=== PATIENT | male | born 1970 | race Caucasian/White ===

== ENCOUNTER 2017-08-10 16:30 | Outpatient (RCR) | payer MEDICARE, SELFPAY ==
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
--- NOTE | 2017-08-10 18:25 | HP.PTDCSUM ---
HP - PT D/C Summary It has been my pleasure to treat VANESSA FUNES under orders from Carroll Mckeon, for the diagnosis of OBESITY IN ADULT for a total of 9 visit(s). Discharge Date: Please see the following information for a summary of their discharge status. - Subjective Subjective: PATIENT REPORTS HE FEELS A LOT MORE STABILITY AND BETTER FUNCTION OF THE LEFT FOOT. HE FEELS MUCH MORE AWARE OF BETTER POSTURE AND FEELS A BIG DIFFERENCE IN HIS POSTURE CONTROL (GETTING TONE). STATES LEGS ARE A LOT STRONGER AND CAN STAND LONGER. ABLE TO TOLERATE COOKING AND DOING DISHES BETTER. REPORTS HE CAN LIFT GROCERIES BETTER AND GO UP AND DOWN STEPS IS IMPROVING. REPORTS WHEN HE WAKES UP IN THE MORNINGS IT IS MUCH EASIER TO GET UP. PATIENT REPORTS HE DOES NOT FEEL HE NEEDS ANYMORE FORMAL PT RIGHT NOW AND HE IS GOING TO TRY TO FIGURE OUT WHERE HE CAN CONTINUE INDEP POOL EX'S. - Pain Back Pain Intensity (Out of 10): 4 L foot Pain Intensity (Out of 10): 5 Hip Pain Pain Intensity (Out of 10): 0 R shldr pain Pain Intensity (Out of 10): 0 - Overall Improvement % Improvement: 50 - Objective Objective/Function: ALL GOALS MET. UPON EXAM: LUMBAR MVMT LOSS: FLEX - MIN, EXT - MIN, ALIX SG - MIN. PATIENT REPORTS STIFFNESS WITH ROM TESTING BUT NOT INCREASED PAIN. ALIX LE STRENGTH 5/5 WITH MMT. - Goals Goal 1:: DECREASE C/O BACK, HIP, NECK, SHOULDER, KNEE AND LEFT FOOT PAIN Goal 2:: IMPROVE LIFTING, WALKING, SITTING, STANDING, SOCIAL LIFE, TRAVEL AND EMPLOYMENT/HOMEMAKING FUNCTION Goal 3:: INSTRUCT IN PROPHYLAXIS/INDEP HEP - Plan Plan: D/C TO INDEP POOL EX'S. PATIENT AGREEABLE. - D/C Information If there are questions or concerns regarding this patient's physical therapy, please feel free to call me at [phone]. Thank you for the referral of this patient. Sincerely, Sarai Broussard
== END 2017-08-10 19:00 | disposition home or self-care (01) ==
LOC: PT 16:30
PROVIDERS: Family Provider Family Medicine; PCP Family Medicine; Visit Provider Family Medicine
DX: E11.65 Type 2 diabetes mellitus with hyperglycemia (principal); I10 Essential (primary) hypertension; E66.9 Obesity, unspecified
CPT/HCPCS: 97113; 97162; 97530

== ENCOUNTER 2017-09-28 13:44 | Emergency (ER) | payer MEDICARE, SELFPAY ==
[2017-09-28 13:44] VITALS: BP 139/95; PULSE 103; RESP 16; TEMP 36.6; O2SAT 96; BMI 59.5
--- NOTE | 2017-09-28 15:13 | VDLE_ITS ---
Reason For Study: LEG SWELLING Procedure LEFT Exam performed portable in ED. GSV is normal. Technically difficult due to body habitus. CFV is compressible, spontaneous, phasic, A preliminary report was called and/or faxed competent, and demonstrates normal to . augmentation. FV is compressible, spontaneous, phasic, competent and demonstrates normal augmentation. POP V is compressible, spontaneous, phasic, competent and demonstrates normal augmentation. T/P Trunk is compressible. PTV is compressible. LT PerV is compressible. Interpretation Summary Deep veins of the left lower extremity are patent and compressible segmentally. There is no evidence of left lower extremity deep vein thrombosis. Valvular competence appears intact within the proximal deep venous system on the left . The left greater saphenous vein appears patent and compressible segmentally. Ordering Physician: Chito Price Referring Physician: Carroll Mckeon Performed By: Yessi Lopes RVT
[2017-09-28] MEDS: morphine 10 MG/ML Syringe 8 MG IM (15:34)
--- NOTE | 2017-09-28 16:01 | ED.VISSUMM ---
- ER Visit Summary Date of Service: 09/28/17 Chief Complaint: Left calf pain and swelling History of Present Illness: The patient is a [address] Mckeon and Dr. Chavez. He reports that he has had pain in his left foot for quite some time. He saw Dr. Chavez in the office yesterday and had a steroid injection and his pain resolved. However, he reports that today he noticed a throbbing pain in his left calf. It is 8 out of 10 with walking and 6 out of 10 with remaining still. He denies any paresthesias or weakness. No back pain. No recent trauma. No fall, MVA, or change in activity. Patient does have a family history of DVT. No personal history of DVT. No recent travel. No chest pain or shortness of breath. Physical Examination: Vitals: Stable. Afebrile. General: Well-nourished and well-developed. Head: Normocephalic atraumatic. Neck: Supple, no lymphadenopathy. No JVD. Nontender. Cardiovascular: Regular rate and rhythm. No murmurs. Respiratory: No respiratory distress. Clear to auscultation bilaterally. Abdominal: Soft, nontender, nondistended, normal bowel sounds. No guarding, rebound, or peritoneal signs. Back: Nontender. Extremities: Trace pedal edema of his lower extremities bilaterally. Moderate tenderness palpation over his left calf. 1+ dorsalis pedis pulse bilaterally. Skin: Normal color, no rash. Neurologic: Alert and oriented ?3. Cranial nerves II through XII are intact. Normal strength and sensation. Psych: Normal affect. Test Results: Left lower extremity Doppler is negative. Emergency Department Course and Treatment: Patient was treated with a dose of morphine IM and is resting comfortably. Treatment Plan: Patient did not want anything for pain at home. He will be discharged instructions to follow-up his primary care physician in 3-5 days not improving. Return to the emergency department for any worsening symptoms. Disposition: To home in improved and stable condition. Impression: 1. Left calf pain, acute. This note was generated with [employer] dictation software. It may contain incorrect words, spelling, and punctuation that were not noted in review of the chart prior to signing ED Disposition - Plan for ED Patient: Chief Complaint: Lower Extremity Injury Instructions: ED Strain Muscle Ext Referrals: Carroll Mckeon MD [Primary Care Provider] - 3-5 Days if not improving
[2017-09-28 16:17] VITALS: BP 146/62; PULSE 78; RESP 20; O2SAT 96
== END 2017-09-28 16:18 | disposition home or self-care (01) ==
LOC: ED 15:56
PROVIDERS: Emergency Provider Emergency Medicine; Family Provider Family Medicine; PCP Family Medicine
DX: M79.662 Pain in left lower leg (principal); R60.0 Localized edema; E11.9 Type 2 diabetes mellitus without complications; I10 Essential (primary) hypertension; F31.9 Bipolar disorder, unspecified; Z79.84 Long term (current) use of oral hypoglycemic drugs; Z79.899 Other long term (current) drug therapy
CPT/HCPCS: 93971; 96372; 99282

== ENCOUNTER 2017-11-20 12:02 | Emergency (ER) | payer MEDICARE, SELFPAY ==
[2017-11-20 12:03] VITALS: BP 127/88; PULSE 103; RESP 19; TEMP 36.7; O2SAT 97; BMI 56.2
--- NOTE | 2017-11-20 12:24 | ED.VISSUMM ---
- ER Visit Summary Date of Service: 11/20/17 Chief Complaint: [] Emotionally upset crying exacerbation of bipolar disorder History of Present Illness: The patient is a 47 M [] in by reports of for a few days the patient's been emotionally upset crying not sleeping quite agitated, no suicidal homicidal ideation the other day he apparently either took too much medicine or too little she is not sure, today he seems very emotionally upset he was not able to sleep all day and she brought him in for evaluation he is taking multiple meds for his bipolar disorder including Depakote, he is fine with the medication regimen diabetes regimen no alcohol use no suicidal ideation reports when he gets to this point sometimes requires admission, his blood sugar this morning was about 200 which is slightly higher than normal Physical Examination: [] Is in no distress resting comforting the bed crying however feels he has low self-esteem denies being suicidal or homicidal he is a large gentleman head neck unremarkable lungs are clear heart tones normal abdomen soft nontender production was unremarkable awake moving all 4 no psychomotor agitation or hallucinations Test Results: [] Emergency Department Course and Treatment: [] Is time screening labs are obtained he has been medicated with metformin which she did not take 2 g Ativan, diabetic diet we have asked the mental health services to see him and determine best disposition options, the is not opposed to his being discharged home but wants him to get some sleep and agrees to wait and discuss the issues with the mental health counselors, Screening labs are pending will be on the chart Treatment Plan: [] he has been seen by mental health services they are making arrangements for him to be admitted to the hospital based on the patient's concerns, later the patient and asked that I speak with them and informed that he was feeling much better he did not wish to be into the hospital he would prefer to go home and be managed as an outpatient again he never had suicidal homicidal ideation he is no longer tearful and feels much better, I will notify mental health services of the above in addition he will be given Ativan 0.5 mg #2 tablets to use 1 tablet nightly and return for change in symptoms Disposition: [] The mental health evaluation Impression: [] Exacerbation of bipolar disorder with emotional outbursts and insomnia This note was generated with [employer] software. It may contain incorrect words, spelling, and punctuation that were not noted in review of the chart prior to signing ED Disposition - Plan for ED Patient: Chief Complaint: Mental Health Referrals: Carroll Mckeon MD [Primary Care Provider] -
--- NOTE | 2017-11-20 12:29 | PCA ---
[facility] TO LET [facility] KNOW HE NEEDED TO BE SEEN
[2017-11-20] MEDS: LORazepam 1 MG Tablet PO (12:45)
[2017-11-20] MEDS: metFORMIN HCl 1,000 MG Tablet 1000 MG PO (12:46)
[2017-11-20 13:49] LABS: Absolute Lymphocyte Count 1.79 X10^3/ul (0.83-4.51); Absolute Neutrophil Count 7.1 X10^3/uL (2.0-7.7); Basophil# 0.02 X10^3/uL; Basophil% 0.2 % (0-1); Eosinophil# 0.02 X10^3/uL; Eosinophils% 0.2 % (0-5); Hematocrit 44.7 % (40-54); Hemoglobin 14.9 g/dl (13.0-16.5); Lymphocyte # 1.79 X10^3/ul (4.0); Lymphocyte % 18.5 % (19-41); Mean Corp Hgb Conc 33.3 g/gl (32-36); Mean Corpuscular Hgb 28.8 pg (27.0-32.0); Mean Corpuscular Volume 86.3 fL (80-94); Mean Platelet Vol. 11.4 fl (6.2-12.0); Monocyte# 0.77 X10^3/uL; Monocyte% 7.9 % (0-10); Neutrophil # 7.09 X10^3/uL (2.7-7.7); Neutrophil % 73.1 % (47-70); POSITIVE COUNT NO; POSITIVE DIFFERENTIAL NO; POSITIVE MORPHOLOGY NO; Platelet Count 183 K/mm3 (150-450); RBC Distribution Width CV 14.6 % (11.6-14.6); RBC Distribution Width SD 45.9 fl (35.1-43.9); Red Blood Count 5.18 M/mm3 (4.6-6.2); White Blood Count 9.7 K/mm3 (4.4-11.0)
[2017-11-20 13:58] LABS: Anion Gap 8 (5-15); BUN 11 mg/dL (7-18); BUN/Creat Ratio 13.9 RATIO (10-20); Calcium,Total 8.8 mg/dL (8.5-10.1); Chloride 103 mmol/L (98-107); Creatinine, Serum 0.79 mg/dL (0.70-1.30); EST Glomerular Filtration Rate 113 mL/min (>60); Est Glom Filt Rate - Afr Amer 136 mL/min (>60); Estimated Creatinine Clearance 121.92 ml/min; Glucose 172 mg/dL (74-106); Sodium Level 135 mmol/L (136-145)
[2017-11-20 14:07] LABS: Alcohol, Blood (Medical)-Serum < 3.0 mg/dL
[2017-11-20 14:15] LABS: Valproic Acid (Depakene) Level 43 ug/mL (50-100)
[2017-11-20 14:24] LABS: Amphetamine Urine VISTA NEGATIVE (<1000 ng/mL); Barbiturate Urine VISTA NEGATIVE (< 200 ng/mL); Benzodiazepine Urine VISTA NEGATIVE (< 200 ng/mL); Cocaine Urine VISTA NEGATIVE (< 300 ng/mL); Ecstacy Urine VISTA NEGATIVE (< 500 ng/mL); Methadone Urine VISTA NEGATIVE (< 300 ng/mL); PCP Urine VISTA NEGATIVE (< 25 ng/mL); THC Urine VISTA NEGATIVE (< 50 ng/mL); Vista UDS pH Range 8
--- NOTE | 2017-11-20 14:55 | ED.DEP ---
ED Disposition - Plan for ED Patient: Chief Complaint: Mental Health Instructions: ED Depression Prescriptions: Lorazepam [Ativan] 0.5 mg PO QHS PRN PRN #2 tab PRN Reason: Insomnia Referrals: Carroll Mckeon MD [Primary Care Provider] -
[2017-11-20] MEDS: Divalproex Sodium 250 MG Tablet 500 MG PO (15:27)
[2017-11-20 15:28] VITALS: BP 162/88; PULSE 110; RESP 20
== END 2017-11-20 15:29 | disposition home or self-care (01) ==
PROVIDERS: Emergency Provider Emergency Medicine; Family Provider Family Medicine; PCP Family Medicine
DX: F31.9 Bipolar disorder, unspecified (principal); G47.00 Insomnia, unspecified; Z79.84 Long term (current) use of oral hypoglycemic drugs; Z79.899 Other long term (current) drug therapy
CPT/HCPCS: 36415; 80048; 80164; 80307; 80320; 85025; 99282; G0480

== ENCOUNTER 2017-11-21 21:55 | Emergency (ER) | payer MEDICARE, SELFPAY ==
--- NOTE | 2017-11-21 21:55 | DT_ITS ---
This patient was seen during an EMR downtime November 21, 2017 - November 28, 2017. This patient may have a combination of paper and electronic documentation or all paper documentation. All documentation is viewable within the e-chart portion of [facility] for each patient visit.
[2017-11-24 12:18] LABS: Valproic Acid (Depakene) Level 71 ug/mL (50-100)
[2017-11-24 15:08] LABS: Bacteria 0 SEEN /hpf (None Seen)
[2017-11-24 15:22] LABS: Color, Urine Yellow (Yellow); Glucose, Dipstick NEGATIVE (Normal); Urine Bilirubin Dipstick Negative (Negative); Urine Clarity Sl Cldy (Clear)
[2017-11-24 15:23] LABS: Ketone-Dipstick 150 mg/dl (Negative); Nitrite-Dipstick Negative (Negative); Occult Blood-Urine 50 /ul (Negative); Protein-Dipstick 15 mg/dl (Negative); Urine Urobilinogen Normal (Normal)
[2017-11-24 15:24] LABS: Leukocyte Esterase-Dipstick Negative /ul (Negative); Mucous, Urine 3+ /hpf (<or=2+); Red Blood Cells-Urine 0-5 SEEN /hpf (0-5); Squamous Epithelial Cells - UA 5-10 SEEN /hpf (0-5); White Blood Cells 5-10 SEEN /hpf (0-5)
[2017-11-25 08:57] LABS: Hematocrit 45.3 % (40-54); Mean Corp Hgb Conc 33.1 g/gl (32-36); Mean Corpuscular Hgb 28.9 pg (27.0-32.0); Mean Corpuscular Volume 87.3 fL (80-94); Mean Platelet Vol. 12.6 fl (6.2-12.0); Platelet Count 227 K/mm3 (150-450); RBC Distribution Width CV 14.9 % (11.6-14.6); RBC Distribution Width SD 47.8 fl (35.1-43.9); Red Blood Count 5.19 M/mm3 (4.6-6.2); Scan Indicated on CBC? Y/N NO; White Blood Count 13.6 K/mm3 (4.4-11.0)
[2017-11-26 08:55] LABS: Amphetamine Urine VISTA NEGATIVE (<1000 ng/mL); Barbiturate Urine VISTA NEGATIVE (< 200 ng/mL); Benzodiazepine Urine VISTA NEGATIVE (< 200 ng/mL); Cocaine Urine VISTA NEGATIVE (< 300 ng/mL); Ecstacy Urine VISTA NEGATIVE (< 500 ng/mL); Methadone Urine VISTA NEGATIVE (< 300 ng/mL); PCP Urine VISTA NEGATIVE (< 25 ng/mL); THC Urine VISTA NEGATIVE (< 50 ng/mL)
== END 2017-11-22 17:01 ==
LOC: ED 11-23 15:26
PROVIDERS: Emergency Provider Emergency Medicine; Family Provider Family Medicine; PCP Family Medicine
DX: F31.9 Bipolar disorder, unspecified (principal); E11.9 Type 2 diabetes mellitus without complications; I10 Essential (primary) hypertension; E78.00 Pure hypercholesterolemia, unspecified; F17.210 Nicotine dependence, cigarettes, uncomplicated; Z79.899 Other long term (current) drug therapy
CPT/HCPCS: 36415; 80164; 80307; 80320; 81001; 85027; 96372; 99285; A4216; G0480

== ENCOUNTER 2017-12-26 08:30 | Outpatient (RCR) | payer MEDICARE, MEDICAID, SELFPAY ==
--- NOTE | 2017-12-26 09:10 | BH.SGPN.GN ---
Behaviors/Verbalizations/Mental Status: [] Client maintained good eye contact, tearful as he discussed circumstances surrounding admission. appropriate motor activity throughout session. He was dressed casual however hygiene appeared lacking as Client gave off a distinct odor. His speech remained WNL. Mood was anxious and depressed, affect congruent with mood. Thoughts were linear, logical, and with no presence of delusion or hallucination. Client Response/Progress/Benefit: [] Client first day in PHP program and was adjusting to dynamics of the group setting. He did well to respond to session and was engaged throughout. Client shared that he has had a long history of difficulties in managing his mental health symptoms, specifically that of kera. Client shared recently having to be hospitalized due to an uncontrolled manic state. Client shared wanting to take steps to prevent something similar from recurring as Client indicated experiencing guilt for the toll it took on his family and his having to take on additional responsibilities. Client receptive of group feedback and appeared to benefit from the encouragement and comfort of the shared group environment. Client recommended continued PHP services to improve client understanding of and ability to manage mental health symptoms.
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
--- NOTE | 2017-12-26 10:27 | BH.SGPN.GN ---
Behaviors/Verbalizations/Mental Status: []Client alert and oriented, dress appropriate, hygiene poor as evidenced by odor. Eye contact good. Motor activity appropriate. Speech within normal limits. Affect congruent, mood anxious, depressed. Thoughts linear, logical, no signs of hallucinations or delusions. Client Response/Progress/Benefit: []Client responded well to session, participating when prompted. Client connected with the topic sharing, I need to get better at changing my thought process. Client helped group identify the physical, mental, behavioral, and emotional impacts of stress. Client reported when he has unmanaged stress client recognizes it first mentally sharing I get racing thoughts. Client identified current stressors in his life such as money, vehicle, feeling self-conscious, physical and mental health, daughter, and relationship with his . Client shared his stress jar is over care home full, but still manageable. Client stated when he enters distress he avoids things, isolates, eats more, and has increased negative thinking. Client appeared to benefit from gaining awareness of his current stressors and how they impact mental health. Client to continue PHP to prevent decompensation and increase use of healthy coping skills to manage mental health symptoms.
--- NOTE | 2017-12-26 11:29 | BH.SGPN.GN ---
Behaviors/Verbalizations/Mental Status: []Client alert and oriented, dress appropriate, hygiene poor as evidenced by odor. Eye contact good. Motor activity appropriate. Speech within normal limits. Affect congruent, mood anxious. Thoughts linear, logical, no signs of hallucinations or delusions Client Response/Progress/Benefit: []Client responded well to session, active participant. Client engaged in the group activity, contributing positively and using in the moment coping skills. Client helped the group create a list of helpful stress management strategies and identified strategies that would help client deal with stress such as starting with small stressors first deep breathing, stopping and thinking before reacting, and focusing on stressors in his control. Client reported of his current stressors, his ability to cope with mental health is in clients control. Client was receptive to learning the four As of coping with stress and appeared to benefit from learning different ways to manage stress. Client continues to struggle with recognizing early warning signs and applying healthy coping skills, but seems to be progressing with socialization. Client to continue PHP to prevent decompensation and increase mood stability.
--- NOTE | 2017-12-26 14:40 | BH.MDN ---
Multi-Disciplinary Note - Note 60-min Individual Time Started:: 12:30 Date: 12/26/17 Purpose of session/treatment goals addressed:: Purpose of today's session was to gather additional information from the client about functioning and symptoms. Other topics including developing treatment goals and his progress in the program Eye Contact:: Fair Motor Activity:: Appropriate Appearance:: Disheveled Speech:: Appropriate Mood:: Anxious Affect:: Congruent Thoughts:: Linear, Logical, No evidence of hallucinations/delusions noted Staff Interventions:: Therapist used open ended questions to gather client's symptoms, current stressors, as well as hx of mental health treatment. Worked with client to explore treatment goals to address in PHP. Client Response:: Pt reports that his first day in the PHP program went well. Discussed the topics and skills of today's group. Shared that he spent the holiday and the weekend with his family and some friends. Feels that his meds are starting to work. Reports less restlessness and racing thoughts. Continues to voice regrets and some embarassment over his actions during manic episode. Fearful that kera will occur again. Frustrated with how these episodes keep occuring and how it effects his family. Other frustrations include current housing as the apartment is very small. Discussed hx of previous hospitalizations, previous treatment, and goals for PHP. Risks/Concerns:: No risks or concerns noted. Denies any sucidal ideations, plan, or intent. Alert and oriented. Thoughts are linear and intact. No kera noted. Progress Toward Goals/Plan:: Limited progress as this was pt's first day in the program. Currently working on developing a tx plan for PHP. Benefited from group support and education today. Will remains in PHP to prevent decompensation, stabilize mood, maintain safety, and medication management. Time Stopped:: 13:30
--- NOTE | 2017-12-26 14:47 | BH.MDN_ITS ---
Multi-Disciplinary Note - Note 60-min Individual Time Started:: 12:30 Date: 12/26/17 Purpose of session/treatment goals addressed:: Purpose of today's session was to gather additional information from the client about functioning and symptoms. Other topics including developing treatment goals and his progress in the program Eye Contact:: Fair Motor Activity:: Appropriate Appearance:: Disheveled Speech:: Appropriate Mood:: Anxious Affect:: Congruent Thoughts:: Linear, Logical, No evidence of hallucinations/delusions noted Staff Interventions:: Therapist used open ended questions to gather client's symptoms, current stressors, as well as hx of mental health treatment. Worked with client to explore treatment goals to address in PHP. Client Response:: Pt reports that his first day in the PHP program went well. Discussed the topics and skills of today's group. Shared that he spent the holiday and the weekend with his family and some friends. Feels that his meds are starting to work. Reports less restlessness and racing thoughts. Continues to voice regrets and some embarassment over his actions during manic episode. Fearful that kera will occur again. Frustrated with how these episodes keep occuring and how it effects his family. Other frustrations include current housing as the apartment is very small. Discussed hx of previous hospitalizations, previous treatment, and goals for PHP. Risks/Concerns:: No risks or concerns noted. Denies any sucidal ideations, plan , or intent. Alert and oriented. Thoughts are linear and intact. No kera noted. Progress Toward Goals/Plan:: Limited progress as this was pt's first day in the program. Currently working on developing a tx plan for PHP. Benefited from group support and education today. Will remains in PHP to prevent decompensation , stabilize mood, maintain safety, and medication management. Time Stopped:: 13:30
--- NOTE | 2017-12-27 09:07 | BH.SGPN.GN ---
Number of participants: 6 Behaviors/Verbalizations/Mental Status: []Client alert and oriented, disheveled appearance. Speech within normal limits. Good eye contact. Motor activity appropriate. Mood depressed, affect congruent, laughing occasionally. Thoughts linear and logical, no signs of hallucinations or delusions. Therapist reviewed clients symptom tracker to assess for intensity of mental health symptoms and identify risk for suicide. No signs of suicidal ideation, plan, or intent to date. Client Response/Progress/Benefit: []Client responded well to session, active participant. Client shared he did not want to attend group today, but he was unsure why. However, client stated I knew if I didnt come I would just mope around all day and feel worse. Client receptive to feedback from group on the benefits of making it to IOP. Client stated group helps get him out of the house and keeps his mind off the negatives. Client reports feeling a little depressed today as he is having a wave of grief for his mother who . Client shared he plans to go to his outpatient psychiatrist today to get his medications regulation, which client reports will be helpful. Client appeared to benefit from receiving positive support from peers on the benefits of getting out of the house and coming to group. Limited progress as it is clients second day in PHP. Client to continue PHP to prevent decompensation.
--- NOTE | 2017-12-27 10:20 | BH.SGPN.GN ---
Behaviors/Verbalizations/Mental Status: [] Pt eye contact good, casual dress, speech and tone appropriate, thoughts linear and intact, no evidence of delusions or hallucinations, mood depressed. Client Response/Progress/Benefit: [] Pt verbalized not really wanting to be in group, however did show engagement AEB contributing his thoughts and feelings. Pt reported he has a positive support group, but sometimes finds he relies too much on his support group. Pt shared there are several times in which he has wanted to vent to his or a friend, but they are not available. Pt recognizes he needs to build upon his internal coping skills for when he can't get reach a friend. Pt reported he would like to gain more insight into his warning signs and triggers because his knows when he is starting to struggle, but pt reports he lacks the insight to recognize the signs himself. Pt seemed to benefit from increasing awareness of benefits of social support.
--- NOTE | 2017-12-27 11:20 | BH.SGPN.GN ---
Behaviors/Verbalizations/Mental Status: []Pt eye contact fair, motor activity appropriate, alert and oriented, thoughts logical and linear, no evidence of delusions or hallucinations, mood depressed, anxious. Client Response/Progress/Benefit: []Pt listened attentively to others and contributed his thoughts and ideas to discussion. Pt connected the importance of communicating how he feels to his supports or others cannot help him. Pt reported he has an idea of what type of support is most beneficial for him, but sometimes struggles with communicating in the moment what would best help him. Recognizes he has to improve his balance between external and internal supports so he doesn't rely on just one type of support. Pt seemed to benefit from group identifying strategies of overcoming barriers to using support system.
--- NOTE | 2017-12-27 14:00 | BH.MTP ---
Master Treatment Plan - Patient Information Program Physician:: Dr. Sophia Mendes Primary Therapist:: Pedrito [facility], [facility] - Psychiatric Diagnoses Psychiatric Diagnoses:: Bipolar 1, most recent episode manic with psychotic features Diagnosis Code(s):: F31.2 - Estimated LOS Estimated LOS (in weeks):: 2 Problem/Goal #1 - Problem/Goal #1 Stated Goal:: Client will improve mood management and reduce suicidal ideations, feelings of hopelessness, and anger outbursts due to Bipolar Disorder through [facility]. Description of Barriers: Limited coping skills and insights on how to manage mood, negative self-talk, and emotional distress. Often use inappropriate skills such as isolation. Functional Impact: Mood instability as the result of poor insight, limited coping skills, and non-compliance with medications has led to conflcits with support and several psychiatric inpt admission. - Objectives Objective #1 Stated Objective: Work with client to develop a crisis plan which includes emergency telephone numbers, 3-4 coping strategies for emotional distress, lists of supports, positive aspects of life, and motivations. Work with client to identify 3-4 sources or triggers to emotional distress to increase insight. Identify 3 effective thought-stopping skills to utilize. Interventions: Therapist will provide list of crisis phone numbers. Therapist will work with client to identify effective coping strategies and steps to take in time of mental health crisis Discharge Criteria: Client will have achieved this goal once he completes his safety plan and is able to utilize coping and thought replacement strategies Target Date: 01/09/18 Review Date: 01/09/18 Problem/Goal #2 - Problem/Goal #2 Stated Goal:: Client will decrease ruminating thoughts which cause anxiety Description of Barriers: Tends to isolate when overwhelmed with emotions. When isolating reports fuck it attitude in which he does not attempt to use any coping skills. Functional Impact: Anxiety often leads to isolation and irritability, which often lead to conflicts with family, decompensation, and non-compliance with medications. - Objectives Objective #1 Stated Objective: Client will identify 2-3 anxiety triggers and 2 coping skills to use when feeling anxious Interventions: Through group and individual counseling pt will be educated on coping skills such as mindfullness, calming/relaxation skills, and thought-stopping skills. Discharge Criteria: Client will be able to identify 2-3 anxiety triggers and 2 coping skills to use when feeling anxious Target Date: 01/09/18 Review Date: 01/09/18 Problem/Goal #3 - Problem/Goal #3 Stated Goal:: Client will cooperate with physician recommendations for medication stabilization to help manage psychotic episodes Description of Barriers: Poor memory which often leads to forgetting to take medications. Little insight into coping skills and warning signs to kera. Functional Impact: Pt has had several discrete episodes of kera which have led to inpatient hospitalizations. Prior to most recent admission non-compliance to medications was a primariy reason for exacerbation of symptoms. Goal Relevant Strengths/Supports: Appears motivated to maintain compliance with medications and participate in PHP program. - Objectives Objective #1 Stated Objective: Client will take psychiatric medications everyday has prescribed by psychiatrist. Interventions: Therapist will educate pt about importance of continued compliance with medication regiment. Discharge Criteria: Client will have met this goal when reports continued compliance with prescribed medication regiment. Target Date: 01/09/18 Review Date: 01/09/18
--- NOTE | 2017-12-27 14:01 | BH.MDN_ITS ---
Multi-Disciplinary Note - Note 30-min Individual Time Started:: 12:30 Date: 12/27/17 Purpose of session/treatment goals addressed:: Purpose of the session was to continue to work on developing treatment plan goals, begin to work on crisis/ safety plan, and develop realistic daily goals to improve mental wellness. Eye Contact:: Good Motor Activity:: Appropriate Appearance:: Casual Speech:: Appropriate Mood:: Anxious Affect:: Congruent Thoughts:: Linear, Logical, No evidence of hallucinations/delusions noted Staff Interventions:: Worked with pt to develop realistic daily goals. Addressed hygiene issues. Introduced crisis and safetly plan with plan to complete this tomorrow. Utilized [place] techniques to encourage change. Assessed progress and symptoms. Client Response:: Pt continues to report that groups have been beneficial. Admits that he had difficulty coming into the program today. Stated that he wanted to isolate and sleep at home, however his forced him to come. Continues to report depressive symptoms, irritability, lack of motivation, and restlessness. Reports I'm still struggling with medications and getting back to normal life. Reports poor sleep yesterday and being emotionally overwhelmed. Poor sleep could be related to taking a 2 hour nap in the evening. He discussed the importance of setting up daily realistic goals to accomplish to increase structure and sense of accomplishment. Discussed how this will improve mental wellness. Worked with therapist to develop these goals. Risks/Concerns:: Denies any suicidal ideations, plan, or intent. Contracts for safety. No risks or concerns noted. Thoughts are linear. No kera noted. Progress Toward Goals/Plan:: Limited progress noted as continues to reports depressive symptoms which are effecting daily hygiene and motivation. Continues to stuggle with isolative urges. Is benefiting from group support and education. Plan is to continue in [facility] to maintain safety, prevent decompensation , and stabilize mood. Time Stopped:: 13:00
--- NOTE | 2017-12-28 09:34 | BH.COMM ---
Communication Note - Communication with Client Communication Note: did not show for PHP today. Call to . Per he informed her that he called to cancel. states that he was in a mood last night with increased irritability. No significant concern reported per . She is going to encourage him to come tomorrow.
--- NOTE | 2017-12-29 16:14 | BH.COMM ---
Communication Note - Communication with Client Communication Note: Unable to get transportation to PHP program today.
--- NOTE | 2017-12-30 09:10 | BH.SGPN.GN ---
Behaviors/Verbalizations/Mental Status: [] Client Response/Progress/Benefit: [] Narrative Note: [] did not show for group today
--- NOTE | 2017-12-30 10:10 | BH.COMM ---
Communication Note - Communication with Client Communication Note: Did not show for PHP today. Left message with pt and emergency contact.
--- NOTE | 2017-12-30 16:29 | BH.COMM_ITS ---
Communication Note - Communication with Client Communication Note: Pt nor his emergency contact responded to several voice messages. Pt missed last two PHP sessions as well as appoointment with psychiatrist today. Call placed to [place] [employer] to conduct a wellness check.
--- NOTE | 2018-01-02 09:07 | BH.SGPN.GN ---
Behaviors/Verbalizations/Mental Status: [Client alert and orient x3. He was a semi-active participant, at times appearing to be lost in his own thoughts. Maintained fair eye contact throughout. Client motor activity appeared appropriate. Appearance was disheveled, clothing poorly fitting. Speech soft though within normal limits. Mood was depressed and anxious, laughing on occasion. Affect congruent with mood. Thoughts linear and logical, no present hallucination or delusions. Therapist reviewed clients symptom tracker to assess for intensity of mental health symptoms and identify risk for suicide. No signs of suicidal ideation, plan, or intent to date.] Client Response/Progress/Benefit: [Client receptive of meeting for group session and appeared to respond well to processing with the group. Client shared having missed group on Tuesday and of the previous date due to feeling ill and then called off Tuesday as he indicated I already missed two days so I might as well. Client indicated that due to not calling off group or showing up a safety check was sent to his house and expressed feeling silly about this but grateful to know that the hospital cares enough to follow up with him. He appeared to struggle with identifying the connection between not prioratizing his mental health treatment and increased irritability over the weekend. Client shared experiencing increased irritability on tuesday afternoon resulting in tension between he and his . CLient expressed struggling to remember that his supports have his best interests at heart but did reach out to his support group at this home [employer] which helped to improve his mood tuesday. Client progress has limited due to lack of consistent attendance. Recommended continued IOP to improve insight regarding his own mental health and improve sx management as well as prevent decompensation. ] Narrative Note: []
--- NOTE | 2018-01-02 10:20 | BH.SGPN.GN ---
Behaviors/Verbalizations/Mental Status: [] Pt eye contact good, casually dressed, a bit disheveled in appearance, motor activity appropriate, speech normal rate and tone, mood depressed, constricted affect, thoughts linear and intact, no evidence of delusions or hallucinations. Client Response/Progress/Benefit: []Pt more quiet compared to previous group sessions, listened to others and shared this thoughts at times. Pt related with others that he can set goals, but struggles with following through with his goals. Pt connected with barriers to follow through of negative thinking, high expectations, and fear of failure. Pt worked cooperatively with peers during challenge activity, able to connect importance of making small goals to help feel more accomplished and build self-esteem. Pt seemed to benefit from learning about SMART goals and rehearsing setting small goals. Pt to continue PHP level of care to decrease depression, improve daily functioning, and prevent decompensation.
--- NOTE | 2018-01-02 11:25 | BH.SGPN.GN ---
Behaviors/Verbalizations/Mental Status: [] Pt eye contact fair, casually dressed, disheveled appearance, motor activity appropriate, speech normal rate and tone, mood process, affect constricted, thoughts linear and intact, no evidence of delusions or hallucinations. Client Response/Progress/Benefit: [] Client passive dependent contributed to discussion if elicited by therapist. Client reported he wants to focus on losing 1 pound per week for his goal his weight is always been an issue for him. Client reported 3 steps he can make is to start walking every day, making better food choices, and using his supports. Client reported a barrier is 1 of his medications makes him extremely hungry which results in increased eating unhealthy foods. Client reported he could benefit from learning more about making healthy food choices. With coaching recognized it may be beneficial to focus on either walking every day or eating more healthy. Client reported he wants to focus on losing weight because it will make him feel more confident and will be better for his health. Client seemed to benefit from assistance with setting smart goals. Client progress could be hindered by negative mindset that something will not work before he even tries it. Narrative Note: []
--- NOTE | 2018-01-02 14:43 | BH.MDN ---
Multi-Disciplinary Note - Note 60-min Individual Time Started:: 13:00 Date: 01/02/18 Purpose of session/treatment goals addressed:: Continued to work on tenative treatment plan goals. Pt did not show for appointment with psychiatrist on 12/30/17 therefore did not complete psych eval or treamtent planning session with psychiatrist. Continues to need PHP level of care due to recent hospitalization and continued MH symptoms. Lack of attendance is related to continued difficulty managing depression, irritability, and negative thinking. Eye Contact:: Good Motor Activity:: Appropriate Appearance:: Disheveled Speech:: Appropriate Mood:: Depressed Affect:: Flat Thoughts:: Linear, Logical, No evidence of hallucinations/delusions noted Staff Interventions:: Utilized [place] techniques to encourage change behaviors. Confronted pt on his lack of attendance in PHP. Provided education on thought-stopping strategies. Began to work with pt on developing a safety plan and plan to help him with difficult emotional moments. Client Response:: Pt apologized for not showing or calling off for Tuesday. He states that he was shocked to see police come to his house for wellness check on Tuesday, however understands this counselor's concern. Reports struggles with managing his depression and anger since last session. Frequent arguements with his and daughter resulting in avoidance of tasks and responsibilities. Teraful at times stating that he threatened to divorce his on Tuesday. Also isolated self to his room on Tuesday due to depression. While isolating he continues to dwell on negative thoughts and even eats to cope. States he tells himself fuck it giving himself permission to put no effort into improving his mental wellness. Reports dwelling and ruminating which leads to anger and avoidance. Causing increased conflict with support. States I don't know why my is with me. presents as distant and overwhelmed with pt which increases anger. Agreeable with family session. Was receptive to implementing some strategies to help negative thinking cycle. Worked with therapist on a safety plan as well as plan to help guide him through difficult emotional moments. Risks/Concerns:: Denies any suicidal ideations, plan, or intent. No risks of concerns noted. Progress Toward Goals/Plan:: Limited progress due to lack of attendance and follow through with assignments. Becoming clear that all worksheets will need to be complete while in session. Began to work on safety plan. Plan is to continue in PHP to maintain safety, prevent decompensation, stabilize mood, and improve daily functioning. Time Stopped:: 14:00
--- NOTE | 2018-01-02 15:01 | BH.MDN_ITS ---
Multi-Disciplinary Note - Note 60-min Individual Time Started:: 13:00 Date: 01/02/18 Purpose of session/treatment goals addressed:: Continued to work on tenative treatment plan goals. Pt did not show for appointment with psychiatrist on 12/30 therefore did not complete psych eval or treamtent planning session with psychiatrist. Continues to need PHP level of care due to recent hospitalization and continued MH symptoms. Lack of attendance is related to continued difficulty managing depression, irritability, and negative thinking. Eye Contact:: Good Motor Activity:: Appropriate Appearance:: Disheveled Speech:: Appropriate Mood:: Depressed Affect:: Flat Thoughts:: Linear, Logical, No evidence of hallucinations/delusions noted Staff Interventions:: Utilized [place] techniques to encourage change behaviors. Confronted pt on his lack of attendance in PHP. Provided education on thought- stopping strategies. Began to work with pt on developing a safety plan and plan to help him with difficult emotional moments. Client Response:: Pt apologized for not showing or calling off for Tuesday. He states that he was shocked to see police come to his house for wellness check on Tuesday, however understands this counselor's concern. Reports struggles with managing his depression and anger since last session. Frequent arguements with his and daughter resulting in avoidance of tasks and responsibilities. Teraful at times stating that he threatened to divorce his on Tuesday. Also isolated self to his room on Tuesday due to depression. While isolating he continues to dwell on negative thoughts and even eats to cope. States he tells himself fuck it giving himself permission to put no effort into improving his mental wellness. Reports dwelling and ruminating which leads to anger and avoidance. Causing increased conflict with support. States I don't know why my is with me. presents as distant and overwhelmed with pt which increases anger. Agreeable with family session. Was receptive to implementing some strategies to help negative thinking cycle. Worked with therapist on a safety plan as well as plan to help guide him through difficult emotional moments. Risks/Concerns:: Denies any suicidal ideations, plan, or intent. No risks of concerns noted. Progress Toward Goals/Plan:: Limited progress due to lack of attendance and follow through with assignments. Becoming clear that all worksheets will need to be complete while in session. Began to work on safety plan. Plan is to continue in PHP to maintain safety, prevent decompensation, stabilize mood, and improve daily functioning. Time Stopped:: 14:00
--- NOTE | 2018-01-03 09:12 | BH.SGPN.GN ---
Behaviors/Verbalizations/Mental Status: [Client alert, orient x3. He maintained consistent eye contact throughout. Motor activity appropriate. Appearance was disheveled - attire ill fitting, appearing to have not bathed. Speech within normal limits. Mood was euthymic, affect congruent - positively discussed areas of progress with group and engaged in conversation. Thoughts were linear,poor insight. no hallucinations or delusions. Therapist reviewed clients symptom tracker to assess for intensity of mental health symptoms and identify risk for suicide. No signs of suicidal ideation, plan, or intent to date.] Client Response/Progress/Benefit: [Client responded well to session and was engaged in discussion throughout. He appeared to connect with the other participants in the group and openly shared thoughts and symptoms. Client discussed feeling his mood is more improved today compared to yesterday. Client attributes this to attending group on previous date and being able to spend time working through current frustrations and identifying strategies for managing stress with individual therapist. Client shared feeling proud of himself for successfully managing his emotions and calming his this morning despite running late. He benefitted from celebrating small areas of progress with the group and the inviting setting. Recommended continued tx to prevent decompensation and work with client on improving effective communication skills with supports and distress tolerance.] Narrative Note: []
--- NOTE | 2018-01-03 10:30 | BH.SGPN.GN ---
Behaviors/Verbalizations/Mental Status: []Client alert and oriented, dress casual, hygiene better today. Eye contact good. Motor activity appropriate. Speech within normal limits. Affect congruent, mood euthymic. Thoughts linear, logical, no signs of hallucinations or delusions. Client Response/Progress/Benefit: []Client responded well to session, active participant. Client connected with the quote sharing, nodding to comments made by peers. Client connected to chaos of the activity to stressors one has to deal with in life. Client stated one needs determination and resilience to be able to cope. Client defined resilience as being flexible and bouncing back from challenges. Client helped the group identify factors that contribute to building resilience such as hope, moving towards goals, and optimism. Client appeared to benefit from increasing awareness of resilience and the factors that contribute to developing a resilient personality. Progress noted as shown by clients ability to maintain safety and by his improved mood stability, but he continue to benefit from PHP to prevent decompensation.
--- NOTE | 2018-01-03 11:30 | BH.SGPN.GN ---
Behaviors/Verbalizations/Mental Status: []Client alert and oriented, hygiene poor. Eye contact good. Motor activity appropriate. Speech within normal limits. Affect congruent-became tearful while talking about family, mood euthymic. Thoughts linear, logical, no signs of hallucinations or delusions. Client Response/Progress/Benefit: []Client responded well to session, receptive to positive statements from peers. Client engaged in activity, demonstrating resilient traits as shown by clients goal setting and optimism. Client connected the stress ball to a resilient personality because the stress ball doesnt stay down even after hardships. Client became tearful while identifying personal resilience traits to help client maintain resilience despite hardships. Client identified his daughter, support system, and courage to be vulnerable to remind client he can overcome challenges and be resilient. Client appeared to benefit from receiving positive statements from peers. Progress noted as shown by clients ability to maintain safety and per clients report of an improved mood, but can continue PHP to prevent decompensation and increase emotional regulation.
--- NOTE | 2018-01-03 14:36 | BH.MDN ---
Multi-Disciplinary Note - Note 30-min Individual Time Started:: 12:42 Date: 01/03/18 Purpose of session/treatment goals addressed:: The purpose of this session was to address client's current stressors, symptoms, warning signs. Another goal was to work on client's safety plan. Symptoms/Behavior:: The session was cut short due to transportation issues, client to finish his safety plan next session. Eye Contact:: Good Motor Activity:: Appropriate Appearance:: Casual Speech:: Tangential Mood:: Anxious Affect:: Congruent Thoughts:: Linear, Logical, No evidence of hallucinations/delusions noted Staff Interventions:: Therapist used open-ended questions to explore client's current stressors, symptoms, and warning signs. Therapist assessed safety and helped client fill out part of his safety plan. Therapist and client discussed strategies to prevent setbacks and promote safety. Therapist encouraged client to communicate his safety plan with and other supports. Therapist gave client a mindfulness strategy to try to increase mindfulness and help client gain more control of his eating. Therapist to follow up with client's assigned [facility] provider for continuity of care. Client Response:: Client responded well to session, open to meeting with therapist. Client reports he has been noticing more angry outbursts recently towards his which client shares could be a warning sign for kera. Client and therapist discussed other warning signs for kera such as flight of ideas, not sleeping, and not talking his pills correctly. Client stated he has not had any of these warning signs yet, which gives client hope he can prevent a setback. Client was receptive to reviewing healthy coping strategies and working on his safety plan. Client shared he has communicated some of the safety plan with his supports, and reports his supports are receptive to removing weapons and monitoring client's medication. Client reported his daughter is his biggest reasons to live when he is feeling depressed as well as his biggest reason to manage kera. Client stated his [employer] group is also a reason to keep moving forward as they provide positive encouragement and mental health support to client. Client agreed to continue working on treatment plan next session as this session was cut short due to transportation. Client reported he plans to try delay, distract, decide as a coping skill to manage his mindless eating today. Risks/Concerns:: Client denies suicidal ideation, plan, and intent as of 01/03/18. Client shared he has communicated safety measures with his supports such as removing weapons from the house. Client denies stockpiles of medication and access to weapons. Client identified his daughter as his reason to live. Progress Toward Goals/Plan:: Client progress limited as he continues to struggle with following through with implementing healthy coping skills. This therapist is not client's assigned PHP therapist, filled in as his assigned therapist was out of the office, but this therapist will provide updates for continuity of care. Client to communicate his safety plan with and other supports and finish safety plan next session. Plan is to continue in PHP to maintain safety, prevent decompensation, stabilize mood, and improve daily functioning. Time Stopped:: 13:00
--- NOTE | 2018-01-03 14:44 | BH.MDN_ITS ---
Multi-Disciplinary Note - Note 30-min Individual Time Started:: 12:42 Date: 01/03/18 Purpose of session/treatment goals addressed:: The purpose of this session was to address client's current stressors, symptoms, warning signs. Another goal was to work on client's safety plan. Symptoms/Behavior:: The session was cut short due to transportation issues, client to finish his safety plan next session. Eye Contact:: Good Motor Activity:: Appropriate Appearance:: Casual Speech:: Tangential Mood:: Anxious Affect:: Congruent Thoughts:: Linear, Logical, No evidence of hallucinations/delusions noted Staff Interventions:: Therapist used open-ended questions to explore client's current stressors, symptoms, and warning signs. Therapist assessed safety and helped client fill out part of his safety plan. Therapist and client discussed strategies to prevent setbacks and promote safety. Therapist encouraged client to communicate his safety plan with and other supports. Therapist gave client a mindfulness strategy to try to increase mindfulness and help client gain more control of his eating. Therapist to follow up with client's assigned [facility] provider for continuity of care. Client Response:: Client responded well to session, open to meeting with therapist. Client reports he has been noticing more angry outbursts recently towards his which client shares could be a warning sign for kera. Client and therapist discussed other warning signs for kera such as flight of ideas, not sleeping, and not talking his pills correctly. Client stated he has not had any of these warning signs yet, which gives client hope he can prevent a setback. Client was receptive to reviewing healthy coping strategies and working on his safety plan. Client shared he has communicated some of the safety plan with his supports, and reports his supports are receptive to removing weapons and monitoring client's medication. Client reported his daughter is his biggest reasons to live when he is feeling depressed as well as his biggest reason to manage kera. Client stated his [employer] group is also a reason to keep moving forward as they provide positive encouragement and mental health support to client. Client agreed to continue working on treatment plan next session as this session was cut short due to transportation. Client reported he plans to try delay, distract, decide as a coping skill to manage his mindless eating today. Risks/Concerns:: Client denies suicidal ideation, plan, and intent as of . Client shared he has communicated safety measures with his supports such as removing weapons from the house. Client denies stockpiles of medication and access to weapons. Client identified his daughter as his reason to live. Progress Toward Goals/Plan:: Client progress limited as he continues to struggle with following through with implementing healthy coping skills. This therapist is not client's assigned PHP therapist, filled in as his assigned therapist was out of the office, but this therapist will provide updates for continuity of care. Client to communicate his safety plan with and other supports and finish safety plan next session. Plan is to continue in PHP to maintain safety, prevent decompensation, stabilize mood, and improve daily functioning. Time Stopped:: 13:00
--- NOTE | 2018-01-04 09:00 | BH.COMM ---
Communication Note - Communication with Client Communication Note: Unable to make PHP due to transportation issues
--- NOTE | 2018-01-05 09:04 | BH.SGPN.GN ---
Behaviors/Verbalizations/Mental Status: [] Pt eye contact good, disheveled in appearance, motor activity appropriate, speech normal rate and tone, mood euthymic, congruent affect, thoughts linear and intact, no evidence of delusions or hallucinations. Reviewed client?s symptom tracker, no signs of suicidal ideation, plan, or intent as of today. Client Response/Progress/Benefit: [] Client reported he had a overall really good day yesterday by hanging out with his family throughout the day. Client reported in the evening his daughter went to vacation [employer] school, so client shared he spent time with his while daughter was busy. Client shared when he got home he listens to music which helps him fall asleep. Client identified a positive is he is looking forward to this weekend because he is volunteering at his confucianist to help provide food and clothing to those in need. Client shared he did not sleep very well last night however when it was time to come to group he reported he actually was looking forward to coming versus when to stay home and isolate. Progress noted as evidenced by client showing increased motivation to get out of the house and reporting decreased depressive symptoms. Client to continue PHP level of care to maintain gains, improve daily functioning, and prevent decompensation. Narrative Note: []
--- NOTE | 2018-01-05 10:03 | BH.SGPN.GN ---
Behaviors/Verbalizations/Mental Status: []Client alert and oriented, disheveled, wearing same clothes as last attended IOP session. Fair eye contact. Motor activity appropriate. Speech within normal limits. Affect congruent, mood euthymic, anxious. Thoughts linear, logical, no signs of hallucinations or delusions. Client Response/Progress/Benefit: []Client responded well to session, providing insight to discussion. Client connected with the quote sharing, I need to be better at communicating with my and daughter. Client identified expressing emotions, thoughts, and needs as the benefits of effective communication in mental health and relationships. Client stated thinking I'm always right, high emotions, and poor concentration have negatively impacted client's communication. Client reported he often uses aggressive and passive-aggressive communication styles which have negatively impacted client's relationship with his and daughter and makes me feel bad after. Client stated he wants to become more assertive so client can get his needs met, but he can become a better listener as well. Client appeared to benefit from identifying how his communication style impacts mental health and relationships. Progress variable as client reports lack of implementation of healthy coping skills, but demonstrates improved participation in group. Client to continue PHP to prevent decompensation and increase mood stability.
--- NOTE | 2018-01-05 11:10 | BH.SGPN.GN ---
Behaviors/Verbalizations/Mental Status: []Client alert and oriented, disheveled, wearing same outfit as Tuesday's group. Eye contact fair. Motor activity appropriate. Speech within normal limits. Affect constricted, mood anxious. Thoughts linear, logical, no signs of hallucinations or delusions. Client Response/Progress/Benefit: []Client responded well to session, active participant. Client participated in the communication activity and was able to use specific, assertive communication with peers. Client shared the activity helped him realize the importance of managing emotions and being clear with communicating needs. Client connected the activity to his life stating he has had to be very specific when explaining panic and mental health to his supports to help them understand. Client helped the group identify strategies to improve communication such as managing emotions, controlling tone and body language, and challenging negative thoughts. Client appeared to benefit from practicing assertive communication in the moment and gaining awareness of how client can improve communication with his supports. Client seems to be progressing with increasing awareness but continues to struggle with applying skills. Client to continue PHP to promote mood stability and prevent decompensation.
--- NOTE | 2018-01-05 14:03 | BH.MDN ---
Multi-Disciplinary Note - Note 60-min Individual Time Started:: 12:30 Date: 01/05/18 Purpose of session/treatment goals addressed:: Used the session to finalize safety/crisis plan, review progress on mood management strategies, begin to develop communication strategies, and assess current status of symptoms and progress in PHP. Treatment plan goals 1,2, and 3 addressed. Eye Contact:: Good Motor Activity:: Appropriate Appearance:: Disheveled Speech:: Appropriate Mood:: Anxious, Depressed Affect:: Congruent Thoughts:: Linear, Logical, No evidence of hallucinations/delusions noted Staff Interventions:: Utilized [facility] techinques to encourage change. Worked with pt to complete crisis managment plan. Praised pt for improved attendance and participation in program. Client Response:: Pt discussed the group topics today which focused on communication. He stated communication is one of the biggest issues in his mental health. Believes that he does not communicate effectively or enough to his support. Also admits that he does not listen effectively and often times can be verbally aggressive with . Admits to daily anger outbursts which usually result in arguements with support. Denies any physical aggressiveness. Discussed the negative impact that poor communication has had on his mental wellness and marriage. Showed insight into improvments he could make. Completed crisis management plan and pt was able to identify warning signs to emotional distress, negative thoughts which occur, internal coping strategies, ways to challenge negative thoughts, people and settings that provide support/distraction, and crisis numbers. Pt continues to report medication compliance with motivation to remian compliant. Risks/Concerns:: Denies suicidal ideations, plan, or intent. No kera noted. No risks or concerns noted. Progress Toward Goals/Plan:: Pt has shown improved attendance and participation this week. Also reports increased stability and decrease in emotional distress. Continues to be medication compliant with no significant side effects. Continues to report difficulty managing anger, anxiety, and depression however is begining to utilize skills learned in group to combat depression, anxiety, and anger. Overal progress noted. Completed treatment goal 1 objective. Discussed with pt the possibility of bringing his in for family session. He will discuss with . Time Stopped:: 13:30
--- NOTE | 2018-01-06 10:10 | BH.SGPN.GN ---
Addendum entered and electronically signed by Kavitha Archer [facility] 01/09/18 11:59: Start time should be corrected to reflect a start time of: 1015 with an end time of 1110. Original Note: Behaviors/Verbalizations/Mental Status: []Pt eye contact good, disheveled in appearance, motor activity appropriate, speech normal rate and tone, mood dysthymic, congruent affect, thoughts linear and intact, no evidence of delusions or hallucinations. Client Response/Progress/Benefit: []Pt contributed to discussion and listened attentively to others. Pt reported it would be nice if he could just wake up and everything would be okay, but recognizes in reality he will have to put forth the effort in order to see positive growth. Pt identified challenging negative thoughts and using positive supports as positive forces that can help him move forward towards growth. During activity pt verbalized frustration, but was able to utilize self talk to keep him calm and engaged during activity. Pt recognized the importance of being able to maintain balance between positive and negative forces in order to maintain stability and progress. Pt seemed to benefit from increased awareness of the impact positive and negative forces can have on progress. Narrative Note: []
--- NOTE | 2018-01-06 11:20 | BH.SGPN.GN ---
Behaviors/Verbalizations/Mental Status: [] Pt eye contact good, casually dressed, motor activity appropriate, speech normal rate and tone, mood euthymic, congruent affect, thoughts linear and intact, no evidence of delusions or hallucinations. Client Response/Progress/Benefit: [] Client listened to others and contributed thoughts and ideas to discussion. Client identified his positive forces to include: Positive support people, improved communication, being more active, daily grooming, and exercise. Client reported his negative forces to include poor communication, overreacting, isolation, and toxic people. Client reported currently he does not feel like he has a balance between his positive and negative forces with his negative forces being more impactful. Client reported she is seeing progress with improving his positive forces that help him move forward in life however recognizes the negative forces of healthy coping skills he used to continue to impact his life. Client seemed benefit from increased awareness of positive and negative forces as well as thinking about strategies he can use to increase the strength of his positive forces. Narrative Note: []
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
--- NOTE | 2018-01-06 12:30 | BH.NA ---
Physical Data - Vital Signs Pulse Rate: 84 Respiratory Rate: 16 Blood Pressure: 142/91 - Height/Weight Height: 1.79 m Weight:: 186.88 kg Weight in Pounds: 412.0 lbs Current Medication Compliance - Medication Compliance Do you take your medication as prescribed?: No Do you need assistance with taking medication?: No Have you had side effects from medication?: No Nutritional History - Appetite Nutritional Instructions:: If client shows signs of a swallowing problem, weight change of 10 pounds or more in the last month, or is on a diabetic diet, the physician will review and request a dietitian consult, as appropriate. All unintentional weight loss will be referred to the physician for decision on need for dietitian consult. Describe your appetite:: Good Have you noticed a change in your eating habits lately?: No Additional nutritional information:: is actively working to decrease his caffeine intake Functional Assessment - Sleep Pattern Describe any problems with sleeping: Generally sleeps poorly, but he has noticed improvement recently which he attributes to medication compliance. - Activities Motor Activity:: Functional Sensory/Communication Assess - Hearing Problems Do you have any hearing problems?: Adequate - Communication Problems Do you have difficulty understanding what people are saying?: No Do you have trouble putting your thoughts into words or expressing what you want to say?: Yes Do people ever have trouble understanding what you say?: Yes What is your primary language?: [place] Learning Assessment - Learning Barriers Learning Barriers:: Ready to learn Medical Problems/History - Neurological Conditions Neurological: Other (See comments) - MINNIE - noncompliant with PAP therapy - Metabolic Conditions Metabolic: Diabetes - type2 - last A1c 7.4 - Pain Assessment Do you have acute or chronic pain?: No Substance Abuse - Substance Abuse Please describe substance abuse in the last 30 days:: Denies tobacco (past use - quit 9 years ago), ETOH, and illicit substance use. Mental Status Summary - Mental Status Significant Findings/Observations on Appearance and Mood:: Client is A&Ox4, cooperative, normal activity, and makes good eye contact. Speech is clear and of regular rate and volume. Casually dressed with appropriate grooming and hygiene. Logical associations. Normal process. No symptoms of delusions. Denies hallucinations. Suicide Assessment - Suicidal Ideation Are you currently or have you been suicidal in the past?: Yes Suicidal Intentional Rating Scale (SIRS): Suicidal thoughts (past) Physician Notification: If Active suicidal thoughts/Will not contract for safety is checked, contact physician and document in the Physician Notification section below. Assault History/Potential - History of Assault Do you have a history of assaulting someone?: No Physician Notification: If yes, notify physician and document notification date and time below. Past Psychiatric History - Treatment Hx Describe (age, circumstance, etc) any past hospitalizations: 5 total psych hospitalizations - most recent 11/22/17-12/16/17 at [facility] for manic episodes Fall Risk Assessment - Age Age: Less than 60 - Mental Status Mental Status: Willing & able to ask for assistance when needed - Physical Status Physical Status: No problems - Impairments Impairments: None - Elimination Elimination: Continent AND independent - Gait or Balance Gait or Balance: Walks independently - Hx of Falls History of falls in the past 6 months: No known history - Medications/Substances Psychotropics:: Mood stabilizers Medications/substances used within the past 24 hours or ordered to administer: 1-2 of the medications/substances listed above - Total Score Total Points:: 1 Physician Notification - Physician Notification Physician Notified: Sophia Mendes Method of Notification: Face to Face Comments: treatment emergency planning and response manager Summary of Impressions - Impressions Recommendations: Include psychiatric and medical issues, treatment planning recommendations, and discharge planning needs. Impressions: Psychiatric Issues: bipolar Impression: General Medical Conditions: DM2, MINNIE - Level of Care How do the client's current symptoms and functional deficits support need for this level of care?: Client notes that prior to starting the program he was having difficulty with mood regulation due to multiple stressors. He recent spent 24 days inpatient after drinking a bunch of NyQuil to try to sleep during a manic episode, and needs PHP to transition from that environment to less intense therapy. He notes ongoing mood swings, but improved. He recognizes that he is not always consistent in taking his medications. Client has been sleeping poorly and has had a decreased appetite. He denies any SI.
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
--- NOTE | 2018-01-06 12:55 | BH.DR.ITP ---
Initial Treatment Plan - Patient Information Visit Information: ADMISSION DATE: EXPECTED LOS: 4-6 weeks Diagnoses:: Bipolar 1 -manic with psychotic features f 31.2 - Problems/Symptoms Problem #1:: Mood instability Symptom:: Kaitlin, irritability, impulsivity, biologic disruption of sleep and appetite, depression, decreased energy Problem #2:: Anxiety Symptom:: Rumination, panic Problem #3:: Recent psychosis Symptom:: Hallucinations
--- NOTE | 2018-01-06 14:08 | BH.MDN_ITS ---
Multi-Disciplinary Note - Note 45-min Individual Time Started:: 12:30 Date: 01/06/18 Purpose of session/treatment goals addressed:: Used the session to access current symptoms and progress in PHP. Reviewed status of treatment plan goals. Eye Contact:: Good Motor Activity:: Appropriate Appearance:: Disheveled Speech:: Appropriate Mood:: Euthymic Affect:: Full Thoughts:: Linear, Logical, No evidence of hallucinations/delusions noted Staff Interventions:: Utilized ND techniques to encourage change. Praised pt for his improved attendance and participation. Provided education and guidance on thought-stopping and reframing. Client Response:: Pt reports that he continues to take his medications as prescribed. Denies any issues with sleep or symptoms consistent with kera or hypomania. Discussed a few recent positive interactions with support. Reports using skills learned in [facility] to imporve communication with and mood management. Reviewed crisis management plan. Pt identifed primary anxiety triggers which include thinking about his current housing status, thinking about his mental stability, and his relationships with and daughter. Reports that ruminating on these topics increase anxiety. Able to identify mindfulness and thought- reframing skills to use when anxious. Risks/Concerns:: no risks or concerns noted. Progress Toward Goals/Plan:: Pt has completed all [facility] treatment plan goals. Discussed case with team and psychiatrist and all are in agreement with step- down to [facility] level of care. Pt had displayed increase mood stability, medication compliance, and has verbalized an overall decrease in depression, anxiety, and irritability. Denies any suicidal ideations. No kera noted while in PHP. Continues to report depressive episodes and difficulty managing anger several days a week. Struggles at times with identifiing warning signs and implementing coping skills. Improved attendance and participation. Plan is to step-down to IOP level of care and pt no longer meets criteria for PHP. Time Stopped:: 13:15
--- NOTE | 2018-01-06 14:09 | BH.DS ---
Discharge Summary - Demographics Date of Admission:: 12/26/17 Discharge Date: 01/06/18 Presenting Problems at Admission:: Pt is a 47 year old male. Hx of Bipolar Disorder, with mixed episodes. History of 5 previous psychiatric admissions with most recent to [facility] from 11/22/17-12/16/17. Pt was admitted due to change in mental status associated with manic episode resulting in disorganized thoughts, labile mood, inability to sleep, confusion, racing thoughts, impulsiveness, and inability to keep himself safe. Hx of manic and depressive episodes which have led to hospitalizations. Pt admits that he is unsure if he was medication compliant which may have exacerbated his MH symptoms. Since being discharged from [facility] on 12/17/27 pt reports increased stability. Reports he does not recall the events or his actions previous to admission. Currently reports decreased sleep, restlessness, increased appetitie, and increased energy. Continues to report racing thoughts and decreased focus. Denies active suicidal ideations, plan, or intent. Denies hx of attempts. Pt reports drinking a bottle of Nyquil prior to admission which led to ER visit, however denies this was suicide attempt rather an attempt to fall asleep as he had been up for days. Currently [facility]. Pt's counselor recently left the area and he is in the process of finding another. Denies HI or psychosis. Denies substance abuse. Currently living with and 12 y/o daughter. is supportive. Verbalizes being motivated for treatment. Discharge Diagnoses:: Bipolar 1 most recent episode manic with psychotic features Reason for Discharge:: Completed treatment plan goals. No longer meets criteria for [facility] level of care. - Treatment Progress During Treatment & Response: Pt had displayed increase mood stability, medication compliance, and has verbalized an overall decrease in depression, anxiety, and irritability. Denies any suicidal ideations. No kera noted while in [facility]. Plan is to step-down to [facility] level of care and pt no longer meets criteria for PHP. Issues Still to be Addressed:: Continues to report depressive episodes and difficulty managing anger several days a week. Struggles at times with identifiing warning signs and implementing coping skills. Continued relationship conflicts. Limted coping skills. Poor self-esteem and significant negative thoughts on daily baisis. Discharge Recommendations/Instructions:: Pt has completed all [facility] treatment plan goals. Discussed case with team and psychiatrist and all are in agreement with step-down to IOP level of care. Discharge Handout: Complete Discharge Handout with client on aftercare options and continuity of care.
--- NOTE | 2018-01-09 09:10 | BH.SGPN.GN ---
Behaviors/Verbalizations/Mental Status: [] Pt eye contact good, casually dressed, motor activity appropriate, speech normal rate and tone, mood euthymic, congruent affect, thoughts linear and intact, no evidence of delusions or hallucinations. Reviewed client?s symptom tracker, no signs of suicidal ideation, plan, or intent as of today. Client Response/Progress/Benefit: [] Patient reported his weekend went extremely well because he had some time to be just with his since his daughter spent the weekend with her grandma. Patient shared he really focused on communicating more effectively with his throughout the weekend. Reported there was a composition he was having with his that started to get heated, however was able to clarify that he was not angry with her and when he gets involved condition sometimes he raises his voice. Client shared after clarification the discussion did not come into an argument and they were able to have a appropriate and helpful conversation about potentially getting a new car. Client reported he is able to see progress and himself with improved ability to manage his emotions. Client demonstrating progress with reporting decreased depression and anxiety in utilizing his healthy skills. Client to continue IOP level of care to maintain gains, and improve daily functioning, and prevent decompensation.
--- NOTE | 2018-01-10 16:15 | BH.MDN_ITS ---
Multi-Disciplinary Note - Note 60-min Individual Time Started:: 12:30 Date: 01/05/18 Purpose of session/treatment goals addressed:: Used the session to finalize safety/crisis plan, review progress on mood management strategies, begin to develop communication strategies, and assess current status of symptoms and progress in PHP. Treatment plan goals 1,2, and 3 addressed. Eye Contact:: Good Motor Activity:: Appropriate Appearance:: Disheveled Speech:: Appropriate Mood:: Anxious, Depressed Affect:: Congruent Thoughts:: Linear, Logical, No evidence of hallucinations/delusions noted Staff Interventions:: Utilized ND techinques to encourage change. Worked with pt to complete crisis managment plan. Praised pt for improved attendance and participation in program. Client Response:: Pt discussed the group topics today which focused on communication. He stated communication is one of the biggest issues in his mental health. Believes that he does not communicate effectively or enough to his support. Also admits that he does not listen effectively and often times can be verbally aggressive with . Admits to daily anger outbursts which usually result in arguements with support. Denies any physical aggressiveness. Discussed the negative impact that poor communication has had on his mental wellness and marriage. Showed insight into improvments he could make. Completed crisis management plan and pt was able to identify warning signs to emotional distress, negative thoughts which occur, internal coping strategies, ways to challenge negative thoughts, people and settings that provide support/ distraction, and crisis numbers. Pt continues to report medication compliance with motivation to remian compliant. Risks/Concerns:: Denies suicidal ideations, plan, or intent. No kera noted. No risks or concerns noted. Progress Toward Goals/Plan:: Pt has shown improved attendance and participation this week. Also reports increased stability and decrease in emotional distress. Continues to be medication compliant with no significant side effects. Continues to report difficulty managing anger, anxiety, and depression however is begining to utilize skills learned in group to combat depression, anxiety, and anger. Overal progress noted. Completed treatment goal 1 objective. Discussed with pt the possibility of bringing his in for family session. He will discuss with . Time Stopped:: 13:30
--- NOTE | 2018-01-17 10:25 | BH.SGPN.GN ---
Behaviors/Verbalizations/Mental Status: [] Pt eye contact fair, casually dressed, motor activity appropriate, speech normal rate and tone, mood anxiety and dysthymic, congruent affect, thoughts linear and intact, no evidence of delusions or hallucinations. Client Response/Progress/Benefit: Pt listened attentively to others and contributed thoughts at times. Pt more quiet when compared to previous group sessions. Pt identified he has a hard time with internally coping, often relies on external supports to help him manage emotions and deal with certain situations. Pt shared he needs to work on improving his healthy coping skills so he can deal with his emotions on his own at times because when he can't talk with an external support he has no positive way of dealing with his emotions. Pt identified low energy and apathy as barriers to implementing new ways of coping. Pt seemed to benefit from recognizing how current way of coping is keeping him stagnant.
[2018-02-17 09:17] VITALS: BP 142/91; PULSE 84; RESP 16
== END 2018-01-06 14:00 | disposition home or self-care (01) ==
LOC: BHPHP 08:30
PROVIDERS: Family Provider Family Medicine; PCP Family Medicine; Visit Provider Psychiatry & Neurology Psychiatry
DX: F31.2 Bipolar disorder, current episode manic severe with psychotic features (principal)
CPT/HCPCS: H0035; H2012; H2020; 90832; 90834; 90837

== ENCOUNTER 2018-01-09 09:00 | Outpatient (RCR) | payer MEDICARE, SELFPAY ==
--- NOTE | 2018-01-09 10:22 | BH.SGPN.GN ---
Behaviors/Verbalizations/Mental Status: [Client eye contact good, Appearance appropriate, casually dressed, motor activity restless - client shifting in chair and left room momentarily, speech normal rate and tone, mood euthymic, congruent affect, thoughts linear and logical, no evidence of delusions or hallucinations.] Client Response/Progress/Benefit: [Client responded positively to session and was an active participant throughout. He did well to provide input to the discussion and relate content back to his own personal experiences associated with the change process. Client worked with the group to process the emotions associated with the change process. He provided examples of struggling to accept change when being discharged from inpatient hospitalization prior to starting IOP program. Client benefitted from reflecting upon the connections between his own difficulties in managing change and the impacts this has had on his mental health. Client displaying progress in self-care and is beginning to make more personal connections with his own mental health and tx topics discussed. Client recommended continued IOP treatment to continue to improve identification and implementation of healthy communication and emotion regulation skills, as well as prevent decompensation. ] Narrative Note: []
--- NOTE | 2018-01-09 11:29 | BH.SGPN.GN ---
Behaviors/Verbalizations/Mental Status: [Client eye contact good, dress was disheveled as clothing ill fitting, motor activity WNL, speech normal rate and tone, mood euthymic,anxious, congruent affect, thoughts linear and logical, no evidence of delusions or hallucinations. ] Client Response/Progress/Benefit: [Client responded well to session and receptive on information discussed. He was able to actively participate in the mobiManageet ball activity in which clients were tasked with adapting to a changing environment in order to achieve the group's identified goal. Client did well to provided insights into connections between the areas of difficulty and means for managing such used in the activity. He identified that the activity was difficult because you did not know where the ball would go which made it hard to plan ahead. CLient connected this to his own anxiety associated with the unknown and provided a personal example regarding his marriage. Client indicated that he is beginning to see the benefits of taking a step back and calming down before reacting in regards to his own management of change. Client progressing in his ability to better regulate emotions when feeling stressed. Recommended continued IOP tx to prevent decompensation and improve consistency of application of emotion regulation and distress tolerance skills.] Narrative Note: []
--- NOTE | 2018-01-10 09:04 | BH.SGPN.GN ---
Behaviors/Verbalizations/Mental Status: [Client eye contact good, disheveled - casually dressed though shirt containing holes and ill fitting, motor activity WNL, speech normal rate and tone, mood euthymic, expressed as hopeful, congruent affect, thoughts linear and logical, no evidence of delusions or hallucinations. Therapist reviewed clients symptom tracker to assess for intensity of mental health symptoms and identify risk for suicide. No signs of suicidal ideation, plan, or intent to date.] Client Response/Progress/Benefit: [Client responded well to session, engaged throughout. He discussed that he is feeling more positive now as he had an experience this morning that helped client recognize improvements in his relationship with his . CLient indicated that he was starting to get frustrated with the chaos of getting everything done in the morning and his reminded him to take a second to breathe and that everything will be okay. He shared feeling as the the reminder to slow down was helpful as client often forgets to do so. He went on to describe some anxiety about finances due to recent car issues. He benefitted from feedback provided and brainstorming with the group on ways to set aside time so that he and his could look at their budget and begin to create a plan. Client displaying progress in more consistent attendance and engagement in the group discussion. Recommended continued IOP tx to improve emotion regulation and prevent decompensation.] Narrative Note: []
--- NOTE | 2018-01-10 10:30 | BH.SGPN.GN ---
Behaviors/Verbalizations/Mental Status: []Client alert and oriented, dress casual, hygiene good. Eye contact good. Motor activity appropriate. Speech within normal limits. Affect congruent, mood euthymic. Thoughts linear, logical, no signs of hallucinations or delusions. Client Response/Progress/Benefit: []Client responded well to session, participating when prompted. Client appeared to connect with the quote, nodding to comments made by peers. Client contributing to the discussion of automatic thoughts and how negative automatic thoughts can impact emotions and behaviors. Client helped the group identify the common cognitive distortions. Client shared he most often uses labeling and mind-reading. Client shared he has labeled himself as not good enough and stated he often assumes what people are thinking which negative impacts communication. Client appeared to benefit from gaining awareness of the common cognitive distortions and how negative thinking impacts mental health and functioning. Client appears to be progressing as evidenced by his report of increased awareness of his distorted thoughts, but continues to struggle with applying coping skills learned in group. Client to continue IOP to prevent decompensation and increase emotional regulation.
--- NOTE | 2018-01-10 11:33 | BH.SGPN.GN ---
Behaviors/Verbalizations/Mental Status: []Client alert and oriented, dress casual, hygiene improved. Eye contact good. Motor activity appropriate. Speech within normal limits. Affect full, mood euthymic. Thoughts linear, logical, no signs of hallucinations or delusions. Client Response/Progress/Benefit: []Client responded well to session, active participant and helped group rehearse thought challenging strategies. Client participated in the activity and connected that it takes awareness and effort to combat cognitive distortions that client has had for years. Client identified nobody likes me as one of the cognitive distortions client would like to challenge. Client stated when he thinks this he feels depressed. Client able to identify the thought as overgeneralizing and black and white thinking and replaced the thought with Im a likeable person and people enjoy me. Client helped the group identify ways to combat negative thoughts such as identifying the distortion, looking at evidence against, and increasing self-awareness. Client appeared to benefit from gaining awareness of the distortions and learning strategies to combat cognitive distortions. Client seems to be progressing as evidenced by his report of improved mood, but client can continue to benefit from increased use of internal coping skills to regulate emotions.
--- NOTE | 2018-01-12 13:25 | BH.COMM ---
Communication Note - Communication with Client Communication Note: Pt called off today due to back injury. Was scheduled to meet with therapist
--- NOTE | 2018-01-12 13:26 | BH.MTP_ITS ---
[facility] - Patient Information Program Physician:: Sophia Mendes Primary Therapist:: Pedrito Mg - Psychiatric Diagnoses Psychiatric Diagnoses:: Bipolar 1, most recent episode manic with psychotic features Diagnosis Code(s):: F31.2 - Estimated LOS Estimated LOS (in weeks):: 6 Problem/Goal #1 - Problem/Goal #1 Stated Goal:: Client will improve mood management by decreasing depression, isolation, impulsivity, and agitation due to Bipolar Disorder through Intensive Outpatient Program. Description of Barriers: chronic issues with mood instability with limited coping skills to manage mood. Functional Impact: Mood instability as the result of poor insight, limited coping skills, and non-compliance with medications has led to conflicts with support and several inpt psychiatric admissions. - Objectives Objective #1 Stated Objective: Client will identify 2-3 internal coping strategies rather than external solutions to manage irritability. Interventions: Therapist will help client develop insight into irritability triggers and help client find internal solutions to triggers. Discharge Criteria: Client will have achieved this objective when can utilize at least 2 internal coping mechanisms to manage irritability. Target Date: 02/23/18 Review Date: 02/09/18 Objective #2 Stated Objective: Client will identify and replace 2-3 negative thinking patterns that mediate feelings of hopelessness and helplessness. Interventions: Through groups and individual therapy, pt. will be provided with education on cognitive distortions, mistaken beliefs, and identifying and combating negative self-talk. Therapist will help pt. explore connection between thoughts, feelings, and actions. Discharge Criteria: Pt. will be able to identify 2-3 negative thinking patterns and be able to effectively stop, challenge, or cope with those negative thoughts. Target Date: 02/23/18 Review Date: 02/09/18 Problem/Goal #2 - Problem/Goal #2 Stated Goal:: Stabilize anxiety level while increasing ability to function and decreasing ruminative thoughts on a daily basis through Intensive Outpatient Program. Description of Barriers: tends to isolate when overwhelmed with emotions. When isolating ruminating thoughts increase and does not utilize appropriate coping skills. Functional Impact: Anxiety often leads to isolation and irritability, which often leads to conflicts with family, decompensation, and non-compliance with medications. - Objectives Objective #1 Stated Objective: Client will learn and implement 2-3 problem solving strategies to realistically addressing worries. Interventions: Through group and individaul sessions pt will develop problem- solving strategies involving defining a problem, brainstorming solutions, selecting and implementing various solutions. Discharge Criteria: Client will have achieved this goal when can verbalize at least two problem solving strategies and utilize the strategies to realistically address worries. Target Date: 02/23/18 Review Date: 02/09/18 Problem/Goal #3 - Problem/Goal #3 Stated Goal:: Client will cooperate with physician recommendations for medication stablization to help manage psychotic episodes. Description of Barriers: poor memory and limited structure in daily routine often leads to forgetting to take medications. Functional Impact: Pt has had several discrete episodes of kera which have led to inpatient hospitalizations. Prior to most recent hospitalization non- compliance with medications wa sa primary reason for exacerbation of symptoms. - Objectives Objective #1 Stated Objective: Client will take psychiatric medications everyday as presribed by psychiatrist Interventions: Therapist will monitor pt's behaviors and mental status while in the program. Will also educate through group and individual sessions the importance of continued compliance with medications. Discharge Criteria: Will have met this goal when pt reports continued compliance with prescribed medication regiment Target Date: 02/23/18 Review Date: 02/09/18
--- NOTE | 2018-01-12 13:26 | BH.PSA ---
Source of Information - Presenting Problems/Circumstances Problems, Referral Source, Mental Status, Client: Refer to psychosocial completed during PHP admission. Nothing has changed for IOP admission.
--- NOTE | 2018-01-13 14:20 | BH.DR.ITP ---
Initial Treatment Plan - Patient Information Visit Information: ADMISSION DATE: EXPECTED LOS: 4-6 weeks Diagnoses:: Bipolar 1-manic with psychotic features - Problems/Symptoms Problem #1:: Mood instability Symptom:: Kaitlin, over activation, irritability, impulsivity, biologic disruption of sleep and appetite, depression Problem #2:: Anxiety Symptom:: Rumination, panic Problem #3:: Recent psychosis Symptom:: Hallucinations
--- NOTE | 2018-01-16 09:05 | BH.SGPN.GN ---
Behaviors/Verbalizations/Mental Status: [Client maintained good eye contact - tearful when discussing daughter, casually dressed - appeared to have showered, motor activity appropriate, speech normal rate and tone, mood positive, euthymic, affect congruent, thoughts linear and logical, no evidence of delusions or hallucinations. Therapist reviewed clients symptom tracker to assess for intensity of mental health symptoms and identify risk for suicide. No signs of suicidal ideation, plan, or intent to date.] Client Response/Progress/Benefit: [Client receptive of session and was an active participant throughout the discussion. He shared having had successfully used some of his thought challenging skills when attempting to manage his emotions over the weekend. Client went on to describe that this allowed for him to work on his relationships ~with supports and spend the day at the park with his daughter. Client disclosed that he had been inspired to do so after overhearing his daughter complaining about having to spend the day with him when he is always grumpy. Client benefitted from processing this with the group and his emotions associated. He displayed progress in his ability how his unmanaged mental health symptoms have negatively impacted relationships with supports. Client recommended continued IOP tx to prevent decompensation and continue to work on improving emotion regulation skills and effective communication.] Narrative Note: []
--- NOTE | 2018-01-16 10:35 | BH.SGPN.GN ---
Behaviors/Verbalizations/Mental Status: []Client alert and oriented, dress casual, appears showered. Eye contact good. Motor activity appropriate. Speech within normal limits. Affect congruent-smiling and laughing with peers, mood euthymic,anxious. Thoughts linear, logical, no signs of hallucinations or delusions. Client Response/Progress/Benefit: []Client responded well to session, quiet, but appeared engaged as evidenced by clients nodding and eye contact. Client nodded to comments made by peers that depression, anxiety, and negative thinking can contribute to an impossible mindset. Client shared he has had an impossible mindset before which led to client feeling helpless. Client engaged in activity, communicating with peers and receptive to feedback. Client stated, I really didnt think we could do it. Client listened as the group processed what helped the group be successful such as patience, communication, and teamwork. Client appeared to benefit from recognizing the consequences of viewing situations as impossible and practicing overcoming an impossible situation. Clients seems to be progressing per his report of an improved mood, but client continues to report difficulty implementing healthy coping skills and managing frustration. Client to continue IOP to prevent decompensation and increase emotional regulation.
--- NOTE | 2018-01-16 11:32 | BH.SGPN.GN ---
Behaviors/Verbalizations/Mental Status: []Client alert and oriented, dress casual, appears groomed. Eye contact good. Motor activity appropriate. Speech within normal limits. Affect congruent-became tearful when reflecting on a time he overcame an impossible situation, mood euthymic. Thoughts linear, logical, no signs of hallucinations or delusions Client Response/Progress/Benefit: []Client responded well to session, participating in discussion, reflecting on positives. Client appeared to connect with growth versus fixed mindset as shown by his report if you have a fixed mindset you wont change. Client helped the group process the benefits of growth mindset and ways to work towards a growth mindset such as challenging negative thinking. Client identified going inpatient as something client thought would be impossible to overcome. Client able to identify internal and external resources that can help client overcome current barriers of irritability such as deep breathing, communicating with his , and taking breaks. Client appeared to benefit from learning about growth mindset and increasing awareness of internal and external resources that may help client overcome barriers. Client seems to be progressing as shown by his medication compliance, but client continues to have inconsistent attendance and reports limited application of coping skills which could hinder progress.
--- NOTE | 2018-01-17 09:05 | BH.SGPN.GN ---
Behaviors/Verbalizations/Mental Status: [Client alert and orient x3, maintained fair eye contact, casually dressed, motor activity WNL, speech normal rate and tone, mood dysthymic -quieter and more closed off during discussion, affect congruent, thoughts linear and logical, no evidence of delusions or hallucinations. Therapist reviewed clients symptom tracker to assess for intensity of mental health symptoms and identify risk for suicide. No signs of suicidal ideation, plan, or intent to date.] Client Response/Progress/Benefit: [Client receptive of session and willing to engage throughout. He discussed that after group yesterday client struggled with managing his emotions and became irritable with his on several occasions. Client shared that at first he lashed out verbally but his had remained calm throughout his emotional outburst which helped client recognize needing to take a break. Client shared trying to pay down to calm himself but ended up falling asleep for the night. He benefitted from processing this with the group and displayed progress in reflecting upon his need for continued work on effectively identifying warning signs and triggers, as well as improving communication with supports. Client recommended continued IOP tx to prevent decompensation and continue to focus on improving management of mental health symptoms and emotion regulation skills.] Narrative Note: []
--- NOTE | 2018-01-17 11:25 | BH.SGPN.GN ---
Behaviors/Verbalizations/Mental Status: []Pt alert and oriented, casually dressed and groomed. Eye contact fair. Motor activity appropriate. Speech within normal limits. Affect constricted, mood euthymic. Thoughts linear, logical, no signs of hallucinations or delusions Client Response/Progress/Benefit: [] Pt responded well to session, taking notes and contributing. Group discussed the different categories of coping skills which included distraction, emotional release, grounding, self-love, and thought challenging.? Pt participated in creating a coping skills ?menu? from the five categories of coping skills. Pt's coping skill menu included: healthy distractions, listening to music, writing down wins, and thought challenge. Appeared to benefit from increasing repertoire of healthy coping skills. Will continue IOP tx to prevent decompensation, increase healthy coping, and decrease negative thinking.
== END 2018-01-17 23:59 ==
LOC: BHIOP 09:00
PROVIDERS: Family Provider Family Medicine; PCP Family Medicine; Visit Provider Psychiatry & Neurology Psychiatry
DX: F31.2 Bipolar disorder, current episode manic severe with psychotic features (principal)
CPT/HCPCS: H2020

== ENCOUNTER 2018-01-26 09:00 | Outpatient (RCR) | payer MEDICARE, SELFPAY ==
--- NOTE | 2018-01-19 09:03 | BH.COMM ---
Communication Note - Communication with Client Communication Note: Pt called to cancel attending IOP today due to car issues. Reports he will attend on Tuesday. Was scheduled to meet with IOP therapist today.
--- NOTE | 2018-01-26 09:05 | BH.SGPN.GN ---
Behaviors/Verbalizations/Mental Status: []Client alert and oriented, dress casual, hair appears washed. Eye contact good. Motor activity appropriate. Speech within normal limits. Affect full, mood euthymic. Thoughts linear, logical, no signs of hallucinations or delusions. Reviewed clients symptom tracker, no risk for suicidal ideation, plan, or intent as of 01/26/18. Client Response/Progress/Benefit: []Client responded well to session, active participant. Client reports feeling mellow today as client does not feel anxious or depressed but has been experiencing increased fatigue recently. Client shared he was scheduled to see his outpatient psychiatrist yesterday to discuss his fatigue and medications but missed his appointment. Client reported medication compliance despite the fatigue. Client stated he continues to struggle with ongoing financial and car stressors that have been impacting client and his 's communication and relationship. Client reported he has been trying to improve communication with his , but the couple had a big fight yesterday. Client stated, I try to hold back, but I have the urge to fire back. Client shared stress also triggers client's urge to smoke cigarettes again, and client attempted to smoke the other day, but it made client feel sick, so he stopped. The group provided client with coping skills to increase emotional regulation and promote effective communication. Client appeared receptive and reports willingness to try communicated breaks and breathing. Client seemed to benefit from receiving ideas from peers on managing emotions. Client's progress is variable as his attendance has been inconsistent, but client appears to be progressing with medication compliance. Client continues to struggle with awareness of warning signs and implementing in the moment coping skills.
--- NOTE | 2018-01-26 10:15 | BH.SGPN.GN ---
Behaviors/Verbalizations/Mental Status: [Client maintained fair eye contact throughout, casually dressed - appearing bathed however emitting a strong body odor, motor activity was appropriate, speech normal rate and tone, thoughts linear and logical, mood was euthymic, optimistic, affect congruent, no evidence of delusions or hallucinations.] Client Response/Progress/Benefit: [Client receptive of session and actively engaged throughout. He indicated connecting with the group topic of managing emotions as client indicated having significant difficulties with regulating his emotions of anger and frustration during times of increased stress. Client did well to work with fellow participants in identifying potential factors contributing to difficulties with managing emotions and provided examples in which poor or ineffective communication has negatively impacted his ability to regulate emotions. Client appeared to benefit from making connections between the activity in which participants were tasked with working to navigate through a potentially stressful situation and how the strategies used in activity could also apply to his communication with supports in daily life. CLient displaying improved progress in his ability to identify triggers often leading to dysregulation and begin to actively apply calming strategies in order to prevent crisis escalation. Client recommended continued IOP treatment in order to maintain stability as well as further improve this application of distress tolerance skills and effective communication with supports.] Narrative Note: []
--- NOTE | 2018-01-26 11:17 | BH.SGPN.GN ---
Behaviors/Verbalizations/Mental Status: [Client maintained fair eye contact throughout - at times appearing distracted by self or phone, casually dressed - appearing bathed however giving off strong body odor, motor activity was appropriate, speech normal rate and tone, thoughts logical and linear,mood is euthymic, positive, affect congruent with mood, no evidence of delusions or hallucinations. ] Client Response/Progress/Benefit: [Client again did well to respond the session was engaged in discussion portion throughout. He actively participated in the group discussion regarding various zones of regulation as well as how the symptoms and emotions experience in each of these zones may differ between persons. Client identified being able to connect with each zones and feels as though he is in the red zone when countering a manic state. Client provided examples of warning signs and symptoms he experiences each state. He discussed that for him the red or crisis zone often looks like increased impulsivity or anger. Client benefited from identifying various coping skills he may use when in each of the 4 zones discussed and expressed that in order to maintain the green zone, or a regulated state of alertness, it is important for him to continue to check-in with himself and openly communicate with his supports. Client displaying progress in his ability to better regulate emotions and identify when he is beginning to escalate in order to apply helpful distress tolerance skills. Recommended continued IOP treatment in order to maintain stability as he continues to work on consistent implementation of healthy emotion regulation and effective communication techniques.] Narrative Note: []
--- NOTE | 2018-01-26 16:33 | BH.MDN ---
Multi-Disciplinary Note - Note 30-min Individual Time Started:: 12:25 Date: 01/26/18 Eye Contact:: Good Motor Activity:: Appropriate Appearance:: Casual Speech:: Appropriate Mood:: Euthymic Affect:: Congruent Thoughts:: Linear, Logical, No evidence of hallucinations/delusions noted Time Stopped:: 12:55
--- NOTE | 2018-01-30 09:10 | BH.SGPN.GN ---
Behaviors/Verbalizations/Mental Status: [] Pt eye contact good, casually dressed, motor activity appropriate, speech normal rate and tone, mood euthymic, congruent affect, thoughts linear and intact, no evidence of delusions or hallucinations. Reviewed client?s symptom tracker, no signs of suicidal ideation, plan, or intent as of today. Client Response/Progress/Benefit: [] Client reported overall he had a pretty good weekend. Client shared on Tuesday he hung out with his family and overall was a good day. Shared he recognizes that he is communicating more effectively with his which seems to be improving the relationship. Client shared he met with the financial services manager at the [facility] who helped guide client and client's about purchasing a new car. Client shared during the meeting client's reported she was open to meeting with a counselor with client. Client reported he can see a lot of progress in himself and wants to continue to move forward. Client shared he thinks he is ready to start addressing a situation occurred 4 years ago with his in-laws which hopefully will resolve in repaired relationships. Client demonstrating progress as evidenced by improved communication skills, reporting mood stable and using healthy coping skills. Client to continue IOP level of care to maintain gains and prevent decompensation. Narrative Note: []
--- NOTE | 2018-01-30 10:23 | BH.SGPN.GN ---
Behaviors/Verbalizations/Mental Status: [Client maintained good eye contact, disheveled faint odor, motor activity restless -moving around room, speech normal rate and tone, mood euthymic, congruent affect, thoughts linear and intact, no evidence of delusions or hallucinations.]] Client Response/Progress/Benefit: [Pt listened attentively and contributed to discussion on conflict resolution. Able to identify the importance of effective conflict resolution to promote positive support and maintain mental health. Provided personal examples regarding ongoing difficulties in managing conflict with his and daughter. Progress in client insight regarding the role his irritability plays in conflict resolution. Pt identified he can connect with all the approaches but is primarily avoidant or assertive, stating that depending on the situation he can ?shut down or blow up?. Pt able to identify how these two extremes in approach has impacted mental health stability. Pt seemed to benefit from learning about the different conflict resolution styles and pros/cons of each. Progress in client levels of insight regarding own approach to conflict.] Narrative Note: []
--- NOTE | 2018-01-30 12:47 | BH.MDN ---
Multi-Disciplinary Note - Note 45-min Individual Time Started:: 11:45 Date: 01/30/18 Purpose of session/treatment goals addressed:: Used the session to assess current symptoms and progress in IOP. Reviewed progress on treatment plan goals. Set up family session. Eye Contact:: Good Motor Activity:: Appropriate Appearance:: Casual Speech:: Appropriate Mood:: Euthymic Affect:: Full Thoughts:: Linear, Logical, No evidence of hallucinations/delusions noted Staff Interventions:: Utilized SC techniques to encourage change. Case and pt's progress dicussed with staff prior to session as this therapist was on vacation. Reviewed progress and discussed aftercare plan with patient. Client Response:: Pt reports progress over the past two weeks despite inconsistent attendance. Pt states everything is fine. Reports that his mood has been mostly stable. Verbalized some episodes of stress, anger, depression, and distress however beleives that he managed these symptoms effectively. Current stress related to car issues. Family's car is currently having issues which has caused stress among the pt and regarding what to do. They did not make any rash decisions and met with financial compliance officer through [facility] which shows that pt is realistic problem solving strategies to address concerns rather than acting impulsively or on emotions. Currently they have a plan to buy a new car which is financially feasable. Other stressor involves shoulder pain which is effecting sleep. Pt states that he has been using self-talk strategies (internal coping strategy), mindfulness, and other coping skills to keep his emotions from getting to crisis level. Reports increased conflict resolution skills and improved communication with . Due to decreased symptoms pt repots that he has started to drive, which he was hesitant to do previously. Pt is agreeable with family session with on 02/01/18. Continues to be active with [facility] which appears to be positive support. Reports that he is more aware of negtive thinking patterns which exacerbate his depression and irritability. Was able to identify cognitive distortions that he uses and ways to challenge these. Risks/Concerns:: no risks or concerns noted. Progress Toward Goals/Plan:: Pt reports progress towards goals. Reports decreased isolation and avoidance at home, improved conflict resolution skills, is more active with family, and denies dwelling or ruminating on negative thoughts. Pt has had inconsistent attendance in the past two weeks only attending 3 IOP sessions. Pt reports that this was related to car issues and medical concerns and not MH issues. Family session to obtain further collabortation on his progress as well as work on communication and conflict resolution. Will continue in IOP to maintain gains, prevent decompensation, set up aftercare, and have family session. Currently pt does not have outpatient counseling set up. He wants to get counseling through his [facility]. Reports that [facility] hired liscensed counselor Ketan Newsome, however is not taking clients till 02/2018. Fearful that if pt does not recieve counseling or continue to have some accountability for managing mood he will decompensate. Spoke with pt's linotyper regarding aftercare and we are both in agreement that without reliable step-down pt will likely decompensation. Time Stopped:: 12:30
--- NOTE | 2018-01-31 09:03 | BH.SGPN.GN ---
Behaviors/Verbalizations/Mental Status: [Client maintained fair eye contact - at times distracted by self/own thoughts, casually dressed -appropriate hygiene, motor activity within normal limits, speech normal rate and tone, mood euthymic, positive - expressed as happy, affect congruent with mood, thoughts linear and logical, no evidence of delusions or hallucinations. Therapist reviewed client?s symptom tracker to assess for intensity of mental health symptoms and identify risk for suicide. No signs of suicidal ideation, plan, or intent to date.] Client Response/Progress/Benefit: [Client responded well to session, actively engaged throughout. He did well to openly provide input throughout discussion and gave positive feedback to fellow participants. Client discussed ongoing struggles in managing issues with transportation as the family van continues to get worse. He discussed currently being in the process of obtaining alone however worries that this will not be successful which is causing increased stress. Client is displaying progress in his ability to manage increased stressors in maintain regulating which he attributes to increase communication with his as well as working to create backup plans for when things do not go as planned. Client discussed additionally looking forward to having a family session on with his which he is optimistic about as this will give him an opportunity to discuss ways he can improve communication as well as better support one another. Client indicated feeling as though he is doing well to improve overall symptom management and is experiencing decrease symptoms of depression; however continues to struggle with irritability. Client recommended continued IOP treatment in order to further improve emotion regulation skills and calming strategies as well as prevent decompensation. ] Narrative Note: []
--- NOTE | 2018-01-31 10:10 | BH.SGPN.GN ---
Behaviors/Verbalizations/Mental Status: []Client alert and oriented, neatly dressed and groomed, hygiene good. Eye contact good. Motor activity appropriate. Speech within normal limits. Affect congruent, mood euthymic. Thoughts linear, logical, no signs of hallucinations or delusions. Client Response/Progress/Benefit: []Client responded well to session, positive contributions. Client connected with the topic sharing, Im having car problems right now. Client discussed the components of problems with the group and identified barriers that keep people from solving problems stating, your thoughts and emotions impact how you respond to problems. Client helped the group identify the ABCDEs of problem solving, which included various techniques to increase problem solving skills such as asking what the problem is and brainstorming solutions. Client engaged in the experiential activity, client receptive to peer feedback and stated, Im determined. Client appeared to benefit from gaining awareness of the components of problems and practicing in the moment problem solving strategies. Client progressing as shown by his report of improved mood stability, but continues to struggle with identifying warning signs and managing irritability.
--- NOTE | 2018-01-31 11:10 | BH.SGPN.GN ---
Behaviors/Verbalizations/Mental Status: []Client alert and oriented, neatly dressed and groomed-hygiene good. Eye contact good. Motor activity appropriate. Speech within normal limits. Affect bright, mood euthymic. Thoughts linear, logical, no signs of hallucinations or delusions. Client Response/Progress/Benefit: []Client responded well to session, active participant. Client connected the activity to solving problems in real life sharing, you need teamwork and determination to solve problems in real life. Client identified broken van as a problem he is currently facing and getting a new vehicle as the solution. Client identified barriers keeping client from this solution as fear of the unknown, money, and negative thinking. Client identified steps to help client achieve this goal such as reaching out to supports who have offered to help we have a lot of good supports at [facility], giving himself credit for the steps he has already taken to achieve the goal and writing out what else needs to be done. Client appeared to benefit from identifying solutions to his barriers. Client seems to be progressing as shown by his improved mood and hygiene, but can continue to increase implementation of healthy coping skills to regulate emotions.
--- NOTE | 2018-02-02 14:01 | BH.COMM ---
Communication Note - Communication with Client Communication Note: cancelled family session. to call in and reschedule
--- NOTE | 2018-02-06 08:30 | BH.COMM ---
Communication Note - Communication with Client Communication Note: Called and spoke with pt's . Per natali car is currently broke down and they have no transportation. States that pt is doing well with no emotional distress noted aside from stress from car. Encouraged he to have pt give me a call. Will work on setting up transportation for pt to the program.
--- NOTE | 2018-02-09 16:23 | BH.COMM ---
Communication Note - Communication with Client Communication Note: Transportation was arranged through [facility] however patient has not returned phone calls to discuss status in the program. Per last conversation with pt's she beleives that he is stable and can be discharged from the program. She reports that he has follow up with counseling through the [facility]. Will discharge pt based on communication with as pt has failed to return therapist's phone calls.
--- NOTE | 2018-02-09 16:26 | BH.DS ---
Discharge Summary - Demographics Date of Admission:: 01/09/18 Discharge Date: 02/09/18 Presenting Problems at Admission:: Pt is a 47 year old male. Hx of Bipolar Disorder, with mixed episodes. History of 5 previous psychiatric admissions with most recent to [facility] from 11/22/17-12/16/17. Pt was admitted due to change in mental status associated with manic episode resulting in disorganized thoughts, labile mood, inability to sleep, confusion, racing thoughts, impulsiveness, and inability to keep himself safe. Hx of manic and depressive episodes which have led to hospitalizations. Pt admits that he is unsure if he was medication compliant which may have exacerbated his MH symptoms. Since being discharged from [facility] on 12/17/27 pt reports increased stability. Reports he does not recall the events or his actions previous to admission. Currently reports decreased sleep, restlessness, increased appetitie, and increased energy. Continues to report racing thoughts and decreased focus. Denies active suicidal ideations, plan, or intent. Denies hx of attempts. Pt reports drinking a bottle of Nyquil prior to admission which led to ER visit, however denies this was suicide attempt rather an attempt to fall asleep as he had been up for days. [facility]. Pt's counselor recently left the area and he is in the process of finding another. Denies HI or psychosis. Denies substance abuse. Currently living with and 12 y/o daughter. is supportive. Verbalizes being motivated for treatment. Discharge Diagnoses:: Bipolar, most recent episode manic. Anxiety, unspecified Reason for Discharge:: Pt did not complete treatment plan goals due to poor attendance and follow-through. Ther however per pt and pt's he has been stable and can be discharged. - Treatment Progress During Treatment & Response: Pt made moderate progress during the program. Attendance was poor and he would often miss days that he was scheduled to see psychiatry which limited progress. Pt also cancelled family session on two occasions which limited progress. When pt was in attendance he presented as motivated and worked on coping skills. Pt reports progress towards goals. Reports decreased isolation and avoidance at home, improved conflict resolution skills, is more active with family, and denies dwelling or ruminating on negative thoughts. Pt has had inconsistent attendance in the past two weeks only attending 4 IOP sessions since 01/18/18. Pt reports that this was related to car issues and medical concerns and not MH issues. Challenging to keep pt engaged in treatment. Issues Still to be Addressed:: Education on Bipolar, use of internal coping skills, challenging negative thoughts, managing irritability and mood swings, medication compliance, communication with family, conflict resolution skills, and use of additional support. Discharge Recommendations/Instructions:: Pt refused to be linked with therapist at local community agencies such as [facility], [employer], or [facility]. Was adamant on counseling through his [facility]. Per pt [facility] has a liscensed counselor on staff. Pt was vague on when next appointment was and would not return phone calls from this therapist to solidify counseling aftercare. Pt is linked with Dr. Chino at [facility] for psychiatry and case management with Rosa Widdows through [employer]. Discharge Handout: Complete Discharge Handout with client on aftercare options and continuity of care.
== END 2018-02-09 16:27 | disposition home or self-care (01) ==
LOC: BHIOP 09:00
PROVIDERS: Family Provider Family Medicine; PCP Family Medicine; Visit Provider Psychiatry & Neurology Psychiatry
DX: F31.81 Bipolar II disorder (principal); F41.9 Anxiety disorder, unspecified
CPT/HCPCS: H0035; H2012; H2020; 90832; 90834; 90853

== ENCOUNTER 2018-03-28 14:01 | Inpatient (IN) | payer MEDICARE, SELFPAY ==
[2018-03-28] VITALS (13 sets, daily range): BP systolic 101–144; BP diastolic 46–88; PULSE 92–125; RESP 16–24; TEMP 36.6–36.8; O2SAT 94–96; BMI 56.2; BMI 56.3; BMI 55.0
--- NOTE | 2018-03-28 14:34 | RAD_ITS ---
STUDY: X-RAY CHEST REASON FOR EXAM: Male, 48 years old. Chest pain with shortness of breath. TECHNIQUE: Single frontal view of the chest. COMPARISON: None. FINDINGS: There is low volume inspiration. There is no demonstrated pleural abnormality. There is borderline cardiomegaly. Normal mediastinum and arlene. Normal visualized pulmonary arteries. Normal visualized aortic arch and descending thoracic aorta. Normal visualized thoracic spine. Normal visualized ribs, clavicles, and shoulders. There is no demonstrated abnormality of the visualized soft tissue structures of the upper abdomen. RAD/Chest 1 View (Portable) IMPRESSION: Borderline cardiomegaly with low volume inspiration. No acute abnormality. Electronically Signed: Christo Calderon MD at 15:28 EDT , Service support ,
--- NOTE | 2018-03-28 14:34 | EKG12_ITS ---
Test Reason : CP Blood Pressure : / mmHG Vent. Rate : 123 BPM Atrial Rate : 123 BPM P-R Int : 152 ms QRS Dur : 096 ms QT Int : 330 ms P-R-T Axes : 057 088 048 degrees QTc Int : 472 ms Sinus tachycardia Incomplete right bundle branch block Possible Inferior infarct , age undetermined Abnormal ECG Confirmed by MICHELE HARVEY, CARMEN ([id number]), senior technical editor TORSTEN WATSON ([id number]) on 03/30/2018 1:24:13 PM Referred By: Lorenzo Encinas Confirmed By:CARMEN BAUTISTA MD
[2018-03-28 14:45] LABS: Absolute Lymphocyte Count 2.73 X10^3/ul (0.83-4.51); Absolute Neutrophil Count 5.1 X10^3/uL (2.0-7.7); Basophil# 0.03 X10^3/uL; Basophil% 0.3 % (0-1); Eosinophil# 0.08 X10^3/uL; Eosinophils% 0.9 % (0-5); Hematocrit 40.8 % (40-54); Hemoglobin 13.7 g/dl (13.0-16.5); Lymphocyte # 2.73 X10^3/ul (4.0); Mean Corp Hgb Conc 33.6 g/gl (32-36); Mean Corpuscular Hgb 28.4 pg (27.0-32.0); Mean Corpuscular Volume 84.6 fL (80-94); Mean Platelet Vol. 12.1 fl (6.2-12.0); Monocyte# 0.82 X10^3/uL; Monocyte% 9.3 % (0-10); Neutrophil # 5.14 X10^3/uL (2.7-7.7); Neutrophil % 58.3 % (47-70); Platelet Count 189 K/mm3 (150-450); RBC Distribution Width CV 14.1 % (11.6-14.6); RBC Distribution Width SD 43.1 fl (35.1-43.9); Red Blood Count 4.82 M/mm3 (4.6-6.2); White Blood Count 8.8 K/mm3 (4.4-11.0)
--- NOTE | 2018-03-28 14:45 | ED.RN ---
PATIENT RECEIVED 324 MG OF ASPIRIN FROM EMS.
[2018-03-28 14:46] LABS: POSITIVE COUNT NO; POSITIVE DIFFERENTIAL NO; POSITIVE MORPHOLOGY NO
[2018-03-28] MEDS: 0.9% Normal Saline 1,000 ML 999 ML IV ×2 (14:48→17:21)
[2018-03-28 14:54] LABS: Anion Gap 14 (5-15); BUN 29 mg/dL (7-18); BUN/Creat Ratio 18.8 RATIO (10-20); Calcium,Total 8.5 mg/dL (8.5-10.1); Chloride 103 mmol/L (98-107); Creatinine, Serum 1.54 mg/dL (0.70-1.30); EST Glomerular Filtration Rate 52 mL/min (>60); Est Glom Filt Rate - Afr Amer 63 mL/min (>60); Estimated Creatinine Clearance 63.84 ml/min; Glucose 132 mg/dL (74-106); Potassium 3.5 mmol/L (3.5-5.1); Sodium Level 137 mmol/L (136-145)
--- NOTE | 2018-03-28 16:29 | ED.VISSUMM ---
- ER Visit Summary Date of Service: 03/28/18 Chief Complaint: Chest pain History of Present Illness: The patient is a 48 M who was walking and developed chest pain. Then he felt lightheaded. No fever or chills no pleuritic symptoms, he has no PE risk factors. He does have diabetes hypertension hypercholesterolemia. Physical Examination: Not appear in acute distress. He is morbidly obese Slightly dry mucous membranes, no obvious facial deformity No C-spine tenderness supple neck. Regular rate and rhythm without any obvious murmurs Clear lungs bilaterally speaking in full sentences without any obvious respiratory distress Abdomen soft and nontender no guarding or rebound Moves all extremities without any difficulty or pain. Skin does not show any obvious rashes or lesions, no trauma. Alert oriented ?3 with no gross focal deficit Emergency Department Course and Treatment: Patient has an unremarkable workup, however his heart score is 4 - 5. He is slightly tachycardic but he is quite dehydrated IV fluids are given. Because of his high heart score I will admit him for further cardiac workup. To the hospital for cardiac workup in stable condition Impression: [Chest pain] This note was generated with [employer] dictation software. It may contain incorrect words, spelling, and punctuation that were not noted in review of the chart prior to signing ED Disposition - Plan for ED Patient: Chief Complaint: Chest Pain Referrals: Carroll Mckeon MD [Primary Care Provider] -
--- NOTE | 2018-03-28 16:49 | NURSING ---
HOSPITALIST FOR DR SCHULTZ
--- NOTE | 2018-03-28 17:48 | PCM.HP.STD ---
<Jn Barrow - Last Filed: 03/28/18 17:48> Problem List (1) Chest pain Status: Acute (2) DEVAUGHN (acute kidney injury) Status: Acute (3) HTN (hypertension) Status: Chronic (4) Bipolar 1 disorder Status: Chronic (5) Overactive bladder Status: Chronic (6) Obesity Status: Chronic History of Present Illness Date of Admission: 03/28/18 Chief Complaint: chest pain The patient is a 48 year old M with a hx of bipolar disorder (notably has not been taking his medications recently per family), morbid obesity, htn, DMt2, overactive bladder who presents to the ER with c/o chest pain x 1 day. He states that he was exercising, walking, and the pain started after he finished his walk. He describes it as midsternal pain and that hurts both sides of his ribs lateral aspect. Pain radiates to the left side of his neck. He denies SOB, cough, nausea, diaphoresis. He says his chest pain resolved in seconds. However he also states he did have some when EMS arrived, and they gave him nitro after which his pain resolved. He has none right now. He is not being forthcoming with information - he is giving me answers to questions then his sister corrects him and he admits that he gave me the wrong answers, so his history is unreliable. [] Past Medical History Past Medical History (Chronic Problems): Chronic Problems Obesity (Chronic) HTN (hypertension) (Chronic) Bipolar 1 disorder (Chronic) Overactive bladder (Chronic) Allergies pseudoephedrine HCl [From Sudafed] Allergy (Verified 03/28/18 14:02) Hives codeine Adverse Reaction (Verified 03/28/18 14:02) Vomiting Home Medications: Ambulatory Orders Medication Instructions Recorded Ascorbic Acid [Vitamin C] 500 mg PO DAILY@0800 12/31/16 Clonazepam [Klonopin] 0.5 mg PO TID PRN 12/31/16 Hydrochlorothiazide [Hctz] 25 mg PO DAILY 12/31/16 Lisinopril [Prinivil] 5 mg PO DAILY 12/31/16 Multivitamin [Daily Multiple 1 each PO DAILY 12/31/16 Vitamin] Oxybutynin [Ditropan] 5 mg PO DAILY 12/31/16 Potassium Chloride [K-Dur] 10 meq PO DAILY 12/31/16 Lamotrigine 200 mg PO DAILY 06/14/17 Risperidone [Risperdal] 4 mg PO DAILY 12/30/17 Byetta 10 mcg SQ BID 03/28/18 Divalproex Sodium 500 mg PO 4X/DAY 03/28/18 Fexofenadine HCl [Rosalind Allergy] 180 mg PO DAILY 03/28/18 Glimepiride [Amaryl] 4 mg PO BID 03/28/18 Ibuprofen [Ibu] 600 mg PO Q6H PRN 03/28/18 Metformin HCl [Glucophage] 1,000 mg PO BID 03/28/18 Simvastatin [Zocor] 40 mg PO QHS 03/28/18 Surgical History: tonsillectomy, - - adenoids, hydrocele repair, tail bone surgery, lipoma Psychiatric History: Bipolar Lives: With Family Smoking Status: Former smoker Tobacco Use: Non-smoker Alcohol: None Drugs: None - *Family History Maternal History Items: Cancer, Diabetes Paternal History Items: Diabetes, Dementia Review of Systems Constitutional: Denies: Chills, Fever, Weight Change HEENT: Denies: Head Aches, Sinus Congestion, Sinus Drainage Cardiovascular: Reports: Chest Pain. Denies: Chest Pressure, Chest Tightness, Edema, Heaviness, Light Headedness, Orthopnea, Palpitations, Syncope Respiratory: Denies: Cough, Shortness of Breath, Shortness of breath at rest, Shortness of breath upon exertion, Sputum production, Wheezing Gastrointestinal: Denies: Abdominal Pain, Diarrhea, Nausea, Vomiting Genitourinary: Denies: Dysuria Musculoskeletal: Denies: Joint Pain, Joint Tenderness Skin: Denies: Rash, Wounds Neurological: Denies: Numbness, Tingling, Focal weakness Psychiatric: Denies: Anxiety, Depression, Homicidal Ideations, Suicidal Ideations Hematologic/ Lymphatic: Denies: Easy Bruising, Easy Bleeding VTE Information - Inpt Only VTE Present on Admission: No VTE Mechan Device Prophylaxis: None VTE Pharm Prophylaxis ordered?: Yes Patient Problems: Active and Suspected Problems Chest pain (Acute) DEVAUGHN (acute kidney injury) (Acute) - Physical Exam General: Alert, Oriented x3, Cooperative HEENT: Atraumatic, PERRLA, EOMI, Normocephalic Neck: Supple, No JVD, Negative Carotid Bruits Lungs: Clear to auscultation, Normal air movement Cardiovascular: Regular rate, No murmurs Abdomen: Bowel Sounds Present, Soft, Non Tender, Obese Extremities: No edema, Capillary Refill Less than 3 Seconds Skin: No rashes, No breakdown Musculoskeletal: No Tenderness to Palpation of Joints or Extremities Neurological: Cranial nerves II-XII grossly intact Psych/Mental Status: Normal Affect, Appropriate, Alert and oriented to time, place, person, mood and affect Vital Signs Temp Pulse Resp BP Pulse Ox 98.2 F 107 H 16 144/88 H 96 03/28/18 14:03 03/28/18 17:36 03/28/18 17:09 03/28/18 17:09 03/28/18 17:09 Oxygen Flow Rate (L/min) 2 Oxygen Delivery Method Room Air Weight: 403 lb 7.135 oz Body Mass Index (BMI) 56.2 Finger Stick Blood Glucose 245 Laboratory Tests Past 24 Hrs 03/28/18 03/28/18 14:04 14:04 WBC 8.8 RBC 4.82 Hgb 13.7 Hct 40.8 MCV 84.6 MCH 28.4 MCHC 33.6 RDW 14.1 RDW Differential 43.1 Plt Count 189 MPV 12.1 H Immature Gran % (Auto) 0.200 Neut % (Auto) 58.3 Lymph % (Auto) 31.0 Roosevelt % (Auto) 9.3 Eos % (Auto) 0.9 Baso % (Auto) 0.3 Absolute Neuts (auto) 5.1 Absolute Lymphs (auto) 2.73 Total Counted Not Reportable Sodium 137 Potassium 3.5 Chloride 103 Carbon Dioxide 20.0 L Anion Gap 14 BUN 29 H Creatinine 1.54 H Estim Creat Clear Calc 63.84 Est GFR (MDRD) Af Amer 63 Est GFR (MDRD) Non-Af 52 L BUN/Creatinine Ratio 18.8 Glucose 132 H Calcium 8.5 Troponin I < 0.015 Assessment/Plan All Active Problems Chest pain (Acute) DEVAUGHN (acute kidney injury) (Acute) 1. Chest pain - relieved with nitro, other risk factors are DMt2, obesity, htn, former smoker. Negative EKG, trop, cxr. Cycle enzymes, repeat EKG, stress test in AM. 2. DEVAUGHN - IV fluids 3. DMt2 with morbid obesity - hold orals. Give SSI. 4. Bipolar - not taking meds. Restart. 5. HTN - stable. Hold HCTZ, marcelina. DVT ppx: heparin This patient was seen by Jn Barrow PA-C under the supervision of Dr. Encinas. <Lorenzo Encinas F - Last Filed: 03/28/18 18:47> History of Present Illness The patient is a 48 year old M [] Past Medical History Allergies pseudoephedrine HCl [From [facility]] Allergy (Verified 03/28/18 14:02) Hives codeine Adverse Reaction (Verified 03/28/18 14:02) Vomiting - Physical Exam Vital Signs Temp Pulse Resp BP Pulse Ox 97.8 F 98 20 H 107/65 94 03/28/18 18:09 03/28/18 18:09 03/28/18 18:09 03/28/18 18:10 03/28/18 18:09 Oxygen Flow Rate (L/min) 2 Oxygen Delivery Method Room Air Weight: 394 lb 6.511 oz Body Mass Index (BMI) 55.0 Finger Stick Blood Glucose 245 Intake and Output for Last 24 Hours 03/26/18 03/27/18 03/28/18 23:59 23:59 23:59 Intake Total 240 / 240 Balance 240 / 240 Laboratory Tests Past 24 Hrs 03/28/18 03/28/18 03/28/18 14:04 14:04 18:08 WBC 8.8 RBC 4.82 Hgb 13.7 Hct 40.8 MCV 84.6 MCH 28.4 MCHC 33.6 RDW 14.1 RDW Differential 43.1 Plt Count 189 MPV 12.1 H Immature Gran % (Auto) 0.200 Neut % (Auto) 58.3 Lymph % (Auto) 31.0 Roosevelt % (Auto) 9.3 Eos % (Auto) 0.9 Baso % (Auto) 0.3 Absolute Neuts (auto) 5.1 Absolute Lymphs (auto) 2.73 Total Counted Not Reportable Sodium 137 Potassium 3.5 Chloride 103 Carbon Dioxide 20.0 L Anion Gap 14 BUN 29 H Creatinine 1.54 H Estim Creat Clear Calc 63.84 Est GFR (MDRD) Af Amer 63 Est GFR (MDRD) Non-Af 52 L BUN/Creatinine Ratio 18.8 Glucose 132 H Calcium 8.5 Troponin I < 0.015 Pending Code Visit Addendum: Dr. Encinas I personally examined the patient and reviewed the chart. I agree with the above. 48-year-old morbidly obese male presenting with chest pain. He says the pain came with ambulation and resolved with nitro. His history is complicated with diabetes and hypertension. History of bipolar disorder and he supposed to be on Depakote and Risperdal however he has not been taking either medication and per the sister he was supposed to be weaning off of the Risperdal anyways so the plan will be to restart his Depakote and hold his Risperdal. Will IV hydrate overnight for his AK I and obtain a nuclear stress in the morning. Inpatient E&M: 69646 Init Hosp L3
--- NOTE | 2018-03-28 17:54 | EKG12_ITS ---
Test Reason : AM EKG Blood Pressure : / mmHG Vent. Rate : 101 BPM Atrial Rate : 101 BPM P-R Int : 154 ms QRS Dur : 092 ms QT Int : 384 ms P-R-T Axes : 038 055 018 degrees QTc Int : 497 ms Poor data quality, interpretation may be adversely affected Sinus tachycardia Low voltage QRS (LIMB LEADS) Confirmed by MICHELE HARVEY, CARMEN ([id number]), primer expeditor and drier TORSTEN WATSON ([id number]) on 03/30/2018 2:03:40 PM Referred By: Lorenzo Encinas Confirmed By:CARMEN BAUTISTA MD
[2018-03-28] MEDS: 0.9% Normal Saline 1,000 ML 100 ML IV (20:57)
[2018-03-28] MEDS: Heparin Injection (Vial) 5,000 UNIT/ML VIAL 5000 UNIT SC (21:00)
[2018-03-28] MEDS: clonazePAM 0.5 MG Tablet PO (21:00)
[2018-03-28] MEDS: Atorvastatin Calcium 20 MG Tablet PO (21:01)
[2018-03-28] MEDS: Divalproex Sodium 250 MG Tablet 500 MG PO (21:01)
[2018-03-28] MEDS: Insulin Lispro 100 UNIT/ML INSULN.PEN SC (21:06)
[2018-03-28 21:36] LABS: Bedside Glucose 155 mg/dL (70-110)
[2018-03-28] MEDS: Acetaminophen 325 MG Tablet 650 MG PO (22:30)
[2018-03-29] VITALS (7 sets, daily range): BP systolic 131–154; BP diastolic 76–77; PULSE 39–97; RESP 18; TEMP 36.6–36.7; O2SAT 94–95
[2018-03-29 00:26] LABS: Bacteria 0 SEEN /hpf (None Seen); Mucous, Urine 0 SEEN /hpf (<or=2+); Squamous Epithelial Cells - UA 0 SEEN /hpf (0-5); White Blood Cells 0 SEEN /hpf (0-5)
[2018-03-29 00:35] LABS: Color, Urine Straw (Yellow); Glucose, Dipstick Normal (Normal); Ketone-Dipstick 15 mg/dl (Negative); Leukocyte Esterase-Dipstick Negative /ul (Negative); Nitrite-Dipstick Negative (Negative); Occult Blood-Urine 25 /ul (Negative); Protein-Dipstick Negative (Negative); Urine Bilirubin Dipstick Negative (Negative); Urine Clarity Clear (Clear); Urine Urobilinogen Normal (Normal)
[2018-03-29 00:43] LABS: Red Blood Cells-Urine 0-5 SEEN /hpf (0-5)
[2018-03-29 05:06] LABS: Absolute Lymphocyte Count 2.09 X10^3/ul (0.83-4.51); Absolute Neutrophil Count 2.8 X10^3/uL (2.0-7.7); Basophil# 0.02 X10^3/uL; Basophil% 0.4 % (0-1); Eosinophil# 0.06 X10^3/uL; Eosinophils% 1.1 % (0-5); Hemoglobin 13.8 g/dl (13.0-16.5); Lymphocyte # 2.09 X10^3/ul (4.0); Lymphocyte % 38.3 % (19-41); Mean Corp Hgb Conc 33.7 g/gl (32-36); Mean Corpuscular Hgb 28.7 pg (27.0-32.0); Mean Corpuscular Volume 85.2 fL (80-94); Mean Platelet Vol. 11.1 fl (6.2-12.0); Monocyte# 0.48 X10^3/uL; Monocyte% 8.8 % (0-10); Neutrophil % 51.2 % (47-70); Platelet Count 182 K/mm3 (150-450); RBC Distribution Width CV 13.9 % (11.6-14.6); RBC Distribution Width SD 42.7 fl (35.1-43.9); Red Blood Count 4.81 M/mm3 (4.6-6.2); White Blood Count 5.5 K/mm3 (4.4-11.0)
[2018-03-29 05:13] LABS: International Normalized Ratio 1.1; Prothrombin Time (Protime)PT. 14.4 SECONDS (11.7-14.9)
[2018-03-29 05:21] LABS: Anion Gap 10 (5-15); BUN 17 mg/dL (7-18); BUN/Creat Ratio 18.5 RATIO (10-20); Calcium,Total 8.5 mg/dL (8.5-10.1); Chloride 103 mmol/L (98-107); Creatinine, Serum 0.92 mg/dL (0.70-1.30); EST Glomerular Filtration Rate 94 mL/min (>60); Est Glom Filt Rate - Afr Amer 114 mL/min (>60); Estimated Creatinine Clearance 106.86 ml/min; Glucose 119 mg/dL (74-106); POSITIVE COUNT NO; POSITIVE DIFFERENTIAL NO; POSITIVE MORPHOLOGY NO; Potassium 3.4 mmol/L (3.5-5.1); Sodium Level 138 mmol/L (136-145)
--- NOTE | 2018-03-29 05:55 | EKG12_ITS ---
Test Reason : AM EKG Blood Pressure : / mmHG Vent. Rate : 101 BPM Atrial Rate : 101 BPM P-R Int : 158 ms QRS Dur : 098 ms QT Int : 398 ms P-R-T Axes : 044 059 020 degrees QTc Int : 516 ms Sinus tachycardia Incomplete right bundle branch block Borderline ECG Confirmed by MICHELE HARVEY, CARMEN ([id number]), news videotape editor TORSTEN WATSON ([id number]) on 03/30/2018 2:01:56 PM Referred By: Lorenzo Encinas Confirmed By:CARMEN BAUTISTA MD
[2018-03-29] MEDS: 0.9% Normal Saline 1,000 ML 100 ML IV (06:06)
[2018-03-29] MEDS: 0.9% NaCl Peripheral Flush Adult/Peds IV (06:07)
[2018-03-29 06:45] LABS: Bedside Glucose 123 mg/dL (70-110)
[2018-03-29] MEDS: Acetaminophen 325 MG Tablet 650 MG PO (08:52)
[2018-03-29] MEDS: Multivitamins,Therapeutic Tablet 1 TABLET PO (10:32)
[2018-03-29] MEDS: Divalproex Sodium 250 MG Tablet 500 MG PO ×2 (10:32→11:12)
[2018-03-29] MEDS: lamoTRIgine 100 MG Tablet 200 MG PO (10:33)
[2018-03-29] MEDS: Ascorbic Acid 500 MG Tablet PO (10:33)
[2018-03-29] MEDS: Tolterodine Tartrate 2 MG CAP.SA PO (10:33)
--- NOTE | 2018-03-29 10:43 | STRESSREP ---
Stress Test Report Pharmacologic myocardial perfusion stress test. 48-year-old male with a history of chest pain. Stress protocol: Resting EKG demonstrates normal sinus rhythm with a rate of 90 bpm normal intervals and noted resting blood pressure 130/80 mmHg. 0.4 mg of regadenoson was infused per usual protocol followed by rapid intravenous saline flush injection continuous EKG monitoring was performed. The maximum heart rate attained was noted to be 120 bpm which is 68% of maximum predicted heart rate the maximum workload was 1 metabolic equivalent. At rest there were no ST ST or T wave changes noted suggest abnormal flow reserve at peak infusion no ST or T wave changes were noted suggest abnormal flow reserve. The resting blood pressure 130/80 final blood pressure was 120/86. Myocardial perfusion protocol. 15.0 mCi of technetium 99m sestamibi was injected at rest. 0.4 mg of regadenoson was infused per usual protocol peak infusion 44.7 mCi of technetium 99m sestamibi was injected stress images were obtained stress and rest images were reconstructed and compared in the short axis vertical long horizontal long axis. Gated images were also obtained next Perfusion SPECT analysis: Review of the stress images demonstrate normal uptake of tracer noted in all areas of myocardium. The resting images similarly demonstrate normal uptake of tracer noted in all areas of myocardium. No areas of reversibility are noted suggest ischemia no previous infarct is noted. Gated SPECT analysis: The gated ejection fraction is noted to be 78%. Conclusion: Normal pharmacologic myocardial perfusion stress test. Preserved ejection fraction.
--- NOTE | 2018-03-29 10:58 | DCINST_ITS ---
- Discharge Diagnoses Current Active Problems: Current Active and Chronic Problems Chest pain (Acute) Obesity (Chronic) DEVAUGHN (acute kidney injury) (Acute) HTN (hypertension) (Chronic) Bipolar 1 disorder (Chronic) Overactive bladder (Chronic) You will use the following diet at home:: Calorie/Carbohydrate Controlled (spe cify 1200, 1400, etc) - 1800 randy / day, Cardiac - <2 g sodium daily Your food should be the consistency of: Regular Your liquids should be the consistency of: Regular/Thin Discharge Activity: Return to Normal Activity Allergies/Adverse Reactions: Allergies pseudoephedrine HCl [From Sudafed] Allergy (Verified 03/28/18 14:02) Hives codeine Adverse Reaction (Verified 03/28/18 14:02) Vomiting Medications to take at Discharge Ascorbic Acid [Vitamin C] 500 mg PO DAILY@0800 12/31/16 Clonazepam [Klonopin] 0.5 mg PO TID PRN 12/31/16 Hydrochlorothiazide [Hctz] 25 mg PO DAILY 12/31/16 Lisinopril [Prinivil] 5 mg PO DAILY 12/31/16 Multivitamin [Daily Multiple Vitamin] 1 each PO DAILY 12/31/16 Oxybutynin [Ditropan] 5 mg PO DAILY 12/31/16 Potassium Chloride [K-Dur] 10 meq PO DAILY 12/31/16 Lamotrigine 200 mg PO DAILY 06/14/17 Byetta 10 mcg SQ BID 03/28/18 Divalproex Sodium 500 mg PO 4X/DAY 03/28/18 Fexofenadine HCl [Rosalind Allergy] 180 mg PO DAILY 03/28/18 Glimepiride [Amaryl] 4 mg PO BID 03/28/18 Ibuprofen [Ibu] 600 mg PO Q6H PRN 03/28/18 Metformin HCl [Glucophage] 1,000 mg PO BID 03/28/18 Simvastatin [Zocor] 40 mg PO QHS 03/28/18 Orders to be completed after discharge: Basic Metabolic Profile (BMP) Time Frame: 1 Week, Location: Laboratory Primary Care Physician: Carroll Mckeon MD [Primary Care Provider] - Please follow up with your Primary Care Physician in: 1-2 weeks Test Results: Test results from this visit will be discussed in further detail at your follow- up appointment, if applicable. Proposed Discharge Date: 03/29/18
[2018-03-29] MEDS: Insulin Lispro 100 UNIT/ML INSULN.PEN SC (11:11)
--- NOTE | 2018-03-29 11:15 | CASEMGMT ---
TAMI HUGGINS assessment: Face to Face with patient for initial transition planning/care coordination assessment. TAMI HUGGINS introduced self and role at [facility], pt voices understanding and consents to assessment at this time. Pt is sitting up on side of bed in no distress at this time. Pt is A/Ox4 at this time and answers all questions appropriately at this time. Care providers, pharmacy, and demographics verified/updated at this time. PCP: Linda Specialists: Pt states currently has no specialists at this time but states needs a sleep study and would like a list of local pulmonologists, which is provided at this time. Pt is aware that Dr. Mckeon will need to make referral for emergency dispatch operator and voices understanding. Preferred Pharmacy: [facility] Insurance: [facility] A/B, [facility] [place] Prescription Benefit: [facility] [place] Living Will/HPOA: Pt states has LW/HPOA completed and is aware that [facility] does not have copies on file, voices understanding. Pt aware to provide copies when able, voices understanding. LNOK: Julia Cruz, Living Arrangements: Pt states lives with and family in a 2 story condo and states no concerns at home at this time. Transportation: Pt states drives self and states no transportation concerns at this time. DME/HHC: Pt states no current DME or need for any at this time. Pt states he has never had HHC or been to SNF. Pt states no concerns with going home at time of discharge. Pt states that he had a psychiatrist but he retired and the counseling center is working on getting him someone new. Pt states that his CM thru the counseling center is Rsoa Navarro. Pt states does not smoke or drink ETOH. Pt states further concerns/needs at this time. Plan: [place] TAMI HUGGINS
[2018-03-29 11:20] LABS: Bedside Glucose 186 mg/dL (70-110)
--- NOTE | 2018-03-29 11:45 | PHA.DC.MR ---
Pharmacy Service has performed discharge medication reconciliation for this patient. No new medications at time of discharge, home medications reviewed. The patient's discharge medication list was reviewed for discrepancies and discrepancies were resolved.
--- NOTE | 2018-03-29 15:06 | DS.PCM_ITS ---
<Jn Barrow - Last Filed: 03/29/18 15:02> Discharge Date and Diagnosis Date of Admission: 03/28/18 Date of Discharge: 03/29/18 - Primary Discharge Diagnosis Chest pain - musculoskeletal DEVAUGHN - 2/2 dehydration t2 DM Morbid obesity Bipolar 1 HTN Overactive bladder - Secondary Discharge Diagnosis Chronic Problems Obesity (Chronic) HTN (hypertension) (Chronic) Bipolar 1 disorder (Chronic) Overactive bladder (Chronic) Hospital Course and Treatment Imaging Results: RAD/Chest 1 View (Portable) IMPRESSION: Borderline cardiomegaly with low volume inspiration. No acute abnormality. Stress Test: Conclusion: Normal pharmacologic myocardial perfusion stress test. Preserved ejection fraction. Operations: None Procedures: Stress test Summary of Care Provided: Physical exam on day of discharge: General: Resting comfortably NAD Psych: A/Ox3 normal affect HEENT: PEARRLA AT NC Neck: Supple NT CV: RRR no m/t/r/g/h Resp: CTA Abd: [id number] Soft NT no guarding or rigidity, morbidly obese Ext: DP2+= no edema Skin: W/D normal turgor Lymph/Heme: No active bleeding or adenopathy Neuro: CN2-12 intact Hospital course: The patient is a 48 year old M with past medical history of bipolar 1, hypertension, morbid obesity, type 2 diabetes, who presented to the emergency room with chief complaint of chest pain located midsternal and bilateral chest wall that began after going for a mile walk. Patient has no history of CAD. He does have a history with risk factors such as former smoker, type 2 diabetes, hypertension. In the ER he appeared to have AK I secondary to dehydration. Chest x-ray, EKG, and troponin were negative. He was admitted to the PCU for chest pain workup. He was given IV fluids for AK I and his nephrotoxic agents were held. The following morning he underwent a stress test which was negative. Troponins remain negative, he had no events on telemetry, repeat EKG was negative. Is felt that his chest pain was likely musculoskeletal. He was discharged home in stable condition to rule out CT and will need to follow-up with his PCP in 1-2 weeks. Given his acute kidney injury, which did resolve overnight, I felt that he should have his BMP checked in 5 days as he is going back on medications that are potentially nephrotoxic. These can be further adjusted by his PCP. Is also notable that the patient has not been taking his psychiatric medications for bipolar disorder leading up to this admission. We had a discussion with his sister about this. She did indicate that he was not supposed to be taking risperidone anymore, however he was not supposed to be off Depakote, Klonopin, lamotrigine which she had not been taking. We strongly advised him to go back on these medications and follow-up with his psychiatrist to make sure that his bipolar is being treated appropriately. This patient was seen by Jn Barrow PA-C under the supervision of Doctor Enriquez. [] - Physical Exam General: Alert, Oriented x3, Cooperative HEENT: Atraumatic, PERRLA, EOMI, Normocephalic Neck: Supple, No JVD, Negative Carotid Bruits Lungs: Clear to auscultation, Normal air movement Cardiovascular: Regular rate, No murmurs Abdomen: Bowel Sounds Present, Soft, Non Tender, Obese Extremities: No edema, Capillary Refill Less than 3 Seconds Skin: No rashes, No breakdown Musculoskeletal: No Tenderness to Palpation of Joints or Extremities Neurological: Cranial nerves II-XII grossly intact Psych/Mental Status: Normal Affect, Appropriate Vital Signs Temp Pulse Resp BP Pulse Ox 97.9 F 93 18 131/76 H 95 03/29/18 08:50 03/29/18 11:05 03/29/18 08:50 03/29/18 08:50 03/29/18 08:50 Oxygen Flow Rate (L/min) 2 Oxygen Delivery Method Room Air Weight: 394 lb 6.511 oz Body Mass Index (BMI) 55.0 Finger Stick Blood Glucose 245 Intake and Output for Last 24 Hours 03/27/18 03/28/18 03/29/18 23:59 23:59 23:59 Intake Total 240 / 240 1736 / 1736 Output Total 1470 / 1470 Balance 240 / 240 266 / 266 Laboratory Tests Past 24 Hrs 03/28/18 03/28/18 03/28/18 18:08 22:17 23:30 WBC RBC Hgb Hct MCV MCH MCHC RDW RDW Differential Plt Count MPV Immature Gran % (Auto) Neut % (Auto) Lymph % (Auto) [place]oll[place] % (Auto) Eos % (Auto) Baso % (Auto) Absolute Neuts (auto) Absolute Lymphs (auto) Total Counted PT INR APTT Sodium Potassium Chloride Carbon Dioxide Anion Gap BUN Creatinine Estim Creat Clear Calc Est GFR (MDRD) Af Amer Est GFR (MDRD) Non-Af BUN/Creatinine Ratio Glucose Calcium Troponin I < 0.015 < 0.015 Urine Color Straw Urine Clarity Clear Urine pH 6.0 Ur Specific [place] 1.010 Urine Protein Negative Urine Glucose (UA) Normal Urine Ketones 15 H Urine Occult Blood 25 H Urine Nitrite Negative Urine Bilirubin Negative Urine Urobilinogen Normal Ur Leukocyte Esterase Negative Urine RBC 0-5 SEEN Urine WBC 0 SEEN Ur Squamous Epith Cells 0 SEEN Urine Bacteria 0 SEEN Urine Mucus 0 SEEN 03/29/18 03/29/18 03/29/18 04:48 04:48 04:48 WBC 5.5 RBC 4.81 Hgb 13.8 Hct 41.0 MCV 85.2 MCH 28.7 MCHC 33.7 RDW 13.9 RDW Differential 42.7 Plt Count 182 MPV 11.1 Immature Gran % (Auto) 0.200 Neut % (Auto) 51.2 Lymph % (Auto) 38.3 Nuckolls % (Auto) 8.8 Eos % (Auto) 1.1 Baso % (Auto) 0.4 Absolute Neuts (auto) 2.8 Absolute Lymphs (auto) 2.09 Total Counted Not Reportable PT 14.4 INR 1.1 APTT 35.0 Sodium 138 Potassium 3.4 L Chloride 103 Carbon Dioxide 25.0 Anion Gap 10 BUN 17 Creatinine 0.92 Estim Creat Clear Calc 106.86 Est GFR (MDRD) Af Amer 114 Est GFR (MDRD) Non-Af 94 BUN/Creatinine Ratio 18.5 Glucose 119 H Calcium 8.5 Troponin I Urine Color Urine Clarity Urine pH Ur Specific [place] Urine Protein Urine Glucose (UA) Urine Ketones Urine Occult Blood Urine Nitrite Urine Bilirubin Urine Urobilinogen Ur Leukocyte Esterase Urine RBC Urine WBC Ur Squamous Epith Cells Urine Bacteria Urine Mucus POC Glucose 03/29/18 03/29/18 03/28/18 11:10 06:34 21:00 POC Glucose 186 H 123 H 155 H Discharge Diet: Low fat/ Low Cholesterol, 1800 Calorie Control Diet, 2000 mg Sodium Diet Discharge Activity: Return to Normal Activity Home Medications: Medications to take at Discharge Ascorbic Acid [Vitamin C] 500 mg PO DAILY@0800 12/31/16 Clonazepam [Klonopin] 0.5 mg PO TID PRN 12/31/16 Hydrochlorothiazide [Hctz] 25 mg PO DAILY 12/31/16 Lisinopril [Prinivil] 5 mg PO DAILY 12/31/16 Multivitamin [Daily Multiple Vitamin] 1 each PO DAILY 12/31/16 Oxybutynin [Ditropan] 5 mg PO DAILY 12/31/16 Potassium Chloride [K-Dur] 10 meq PO DAILY 12/31/16 Lamotrigine 200 mg PO DAILY 06/14/17 Byetta 10 mcg SQ BID 03/28/18 Divalproex Sodium 500 mg PO 4X/DAY 03/28/18 Fexofenadine HCl [Rosalind Allergy] 180 mg PO DAILY 03/28/18 Glimepiride [Amaryl] 4 mg PO BID 03/28/18 Ibuprofen [Ibu] 600 mg PO Q6H PRN 03/28/18 Metformin HCl [Glucophage] 1,000 mg PO BID 03/28/18 Simvastatin [Zocor] 40 mg PO QHS 03/28/18 Other Amb Orders: Basic Metabolic Profile (BMP) Time Frame: 1 Week, Location: Laboratory Primary Care Physician: Carroll Mckeon MD [Primary Care Provider] - Please follow up with your Primary Care Physician in: 1-2 weeks Please Follow Up With: Carroll Mckeon MD Disposition: Home Minutes spent on discharge:: 35 Patient Condition:: Stable Medical Necessity - Tobacco Use Smoking Status: Former smoker Tobacco Use: Non-smoker Meaningful Use Info Meaningful Use Diagnoses (Choose all that apply): None applicable <Adi Enriquez - Last Filed: 03/29/18 15:39> Discharge Date and Diagnosis - Secondary Discharge Diagnosis Chronic Problems Obesity (Chronic) HTN (hypertension) (Chronic) Bipolar 1 disorder (Chronic) Overactive bladder (Chronic) Hospital Course and Treatment Summary of Care Provided: This patient was seen in conjunction with Jn Barrow PA-C I have independently interviewed and examined the patient and reviewed pertinent historical, laboratory, and other data. Please refer to Jn Barrow PA-C note for details of this patient's presentation, findings, and recommendations. I have reviewed Jn Barrow PA-C note and concur with documented findings. In brief, patient is a 48-year-old gentleman with past medical history cigar for morbid obesity with BMI of 55, hypertension diabetes mellitus type 2 who presented with midsternal chest pain. Patient was placed on a monitored bed [place] was ruled out with serial cardiac enzymes subsequently underwent a nuclear stress test which was negative for stress induced ischemia. Patient was discharged home instructed to follow-up with his PCP Hospital course: As elicited above by Jn Barrow PA-C - Physical Exam Vital Signs Temp Pulse Resp BP Pulse Ox 97.9 F 93 18 131/76 H 95 03/29/18 08:50 03/29/18 11:05 03/29/18 08:50 03/29/18 08:50 03/29/18 08:50 Oxygen Flow Rate (L/min) 2 Oxygen Delivery Method Room Air Weight: 178.9 kg Body Mass Index (BMI) 55.0 Finger Stick Blood Glucose 245 Intake and Output for Last 24 Hours 03/27/18 03/28/18 03/29/18 23:59 23:59 23:59 Intake Total 240 / 240 1736 / 1736 Output Total 1470 / 1470 Balance 240 / 240 266 / 266 Laboratory Tests Past 24 Hrs 03/28/18 03/28/18 03/28/18 18:08 22:17 23:30 WBC RBC Hgb Hct MCV MCH MCHC RDW RDW Differential Plt Count MPV Immature Gran % (Auto) Neut % (Auto) Lymph % (Auto) [place] % (Auto) Eos % (Auto) Baso % (Auto) Absolute Neuts (auto) Absolute Lymphs (auto) Total Counted PT INR APTT Sodium Potassium Chloride Carbon Dioxide Anion Gap BUN Creatinine Estim Creat Clear Calc Est GFR (MDRD) Af Amer Est GFR (MDRD) Non-Af BUN/Creatinine Ratio Glucose Calcium Troponin I < 0.015 < 0.015 Urine Color Straw Urine Clarity Clear Urine pH 6.0 Ur Specific [place] 1.010 Urine Protein Negative Urine Glucose (UA) Normal Urine Ketones 15 H Urine Occult Blood 25 H Urine Nitrite Negative Urine Bilirubin Negative Urine Urobilinogen Normal Ur Leukocyte Esterase Negative Urine RBC 0-5 SEEN Urine WBC 0 SEEN Ur Squamous Epith Cells 0 SEEN Urine Bacteria 0 SEEN Urine Mucus 0 SEEN 03/29/18 03/29/18 03/29/18 04:48 04:48 04:48 WBC 5.5 RBC 4.81 Hgb 13.8 Hct 41.0 MCV 85.2 MCH 28.7 MCHC 33.7 RDW 13.9 RDW Differential 42.7 Plt Count 182 MPV 11.1 Immature Gran % (Auto) 0.200 Neut % (Auto) 51.2 Lymph % (Auto) 38.3 [place] % (Auto) 8.8 Eos % (Auto) 1.1 Baso % (Auto) 0.4 Absolute Neuts (auto) 2.8 Absolute Lymphs (auto) 2.09 Total Counted Not Reportable PT 14.4 INR 1.1 APTT 35.0 Sodium 138 Potassium 3.4 L Chloride 103 Carbon Dioxide 25.0 Anion Gap 10 BUN 17 Creatinine 0.92 Estim Creat Clear Calc 106.86 Est GFR (MDRD) Af Amer 114 Est GFR (MDRD) Non-Af 94 BUN/Creatinine Ratio 18.5 Glucose 119 H Calcium 8.5 Troponin I Urine Color Urine Clarity Urine pH Ur Specific [place] Urine Protein Urine Glucose (UA) Urine Ketones Urine Occult Blood Urine Nitrite Urine Bilirubin Urine Urobilinogen Ur Leukocyte Esterase Urine RBC Urine WBC Ur Squamous Epith Cells Urine Bacteria Urine Mucus POC Glucose 03/29/18 03/29/18 03/28/18 11:10 06:34 21:00 POC Glucose 186 H 123 H 155 H Code Visit OBSV E&M: [id number] Observation care discharge
--- NOTE | 2018-03-31 13:20 | CASEMGMT ---
TAMI HUGGINS Discharge Follow-Up Phone Call. LACE: 9 Strata: 3 Discharge Date: 03/29/18 Adm Dx: CP Attempted d/c follow-up phone call. No answer. Message left for pt to return call to CM if he has any questions about d/c instructions, medications, or any other questions or concerns. Phone number provided. Johnny MARINELLI RN CM
== END 2018-03-29 12:49 | disposition home or self-care (01) | DRG 683 ==
LOC: ED 14:49 → PCU 17:05
PROVIDERS: Student in an Organized Health Care Education/Training Program; Admitting Provider Family Medicine; Emergency Provider Emergency Medicine; Family Provider Family Medicine; PCP Family Medicine; Referring Provider Family Medicine; Visit Provider Internal Medicine
DX: N17.9 Acute kidney failure, unspecified (principal); Z68.43 Body mass index [BMI] 50.0-59.9, adult; R07.89 Other chest pain; Z23 Encounter for immunization; E11.9 Type 2 diabetes mellitus without complications; F31.9 Bipolar disorder, unspecified; E66.01 Morbid (severe) obesity due to excess calories; I10 Essential (primary) hypertension; E86.0 Dehydration; N32.81 Overactive bladder; Z87.891 Personal history of nicotine dependence; Z79.84 Long term (current) use of oral hypoglycemic drugs
CPT/HCPCS: 36415; 71045; 78452; 80048; 81001; 82962; 84484; 85025; 85610; 85730; 93005; 93017; 99285; 99406; A9500; J7030; J7040; 90686; A4216; J2785

== ENCOUNTER 2018-03-31 13:06 | Emergency (ER) | payer MEDICARE, MEDICAID, SELFPAY ==
[2018-03-31 13:07] VITALS: BP 122/70; PULSE 116; RESP 22; TEMP 36.4; O2SAT 96; BMI 54.3
--- NOTE | 2018-03-31 14:07 | RAD_ITS ---
STUDY: X-RAY - LEFT ANKLE REASON FOR EXAM: Pain, injury. TECHNIQUE: 3 view(s) of the ankle. COMPARISON: None. FINDINGS: Normal visualized distal tibia and fibula. Normal medial and lateral malleoli. Normal tibiotalar articulation and ankle mortise. There is a plantar calcaneal enthesophyte. The visualized subtalar, talonavicular, calcaneocuboid and tarsal articulations are normal. There is soft tissue swelling. RAD/Ankle min 3 Views IMPRESSION: Soft tissue swelling. No demonstrated fracture. Electronically Signed: Isaiah Barillas MD at 14:29 EDT Tel , Service support ,
[2018-03-31] MEDS: HYDROcodone Bitartrate/Apap 5/325 Tablet PO (15:06)
[2018-03-31 15:16] LABS: Absolute Lymphocyte Count 1.84 X10^3/ul (0.83-4.51); Basophil# 0.02 X10^3/uL; Basophil% 0.2 % (0-1); Eosinophil# 0.02 X10^3/uL; Eosinophils% 0.2 % (0-5); Hematocrit 42.4 % (40-54); Lymphocyte # 1.84 X10^3/ul (4.0); Mean Corpuscular Hgb 28.5 pg (27.0-32.0); Mean Corpuscular Volume 86.2 fL (80-94); Mean Platelet Vol. 11.6 fl (6.2-12.0); Monocyte# 0.76 X10^3/uL; Monocyte% 7.9 % (0-10); Neutrophil # 7.02 X10^3/uL (2.7-7.7); Neutrophil % 72.6 % (47-70); Platelet Count 154 K/mm3 (150-450); Red Blood Count 4.92 M/mm3 (4.6-6.2); White Blood Count 9.7 K/mm3 (4.4-11.0)
[2018-03-31 15:22] LABS: POSITIVE COUNT NO; POSITIVE DIFFERENTIAL NO; POSITIVE MORPHOLOGY NO
[2018-03-31 15:34] LABS: Amphetamine Urine VISTA NEGATIVE (<1000 ng/mL); Barbiturate Urine VISTA NEGATIVE (< 200 ng/mL); Benzodiazepine Urine VISTA NEGATIVE (< 200 ng/mL); Cocaine Urine VISTA NEGATIVE (< 300 ng/mL); Ecstacy Urine VISTA NEGATIVE (< 500 ng/mL); Methadone Urine VISTA NEGATIVE (< 300 ng/mL); PCP Urine VISTA NEGATIVE (< 25 ng/mL); THC Urine VISTA NEGATIVE (< 50 ng/mL); Vista UDS pH Range 6
[2018-03-31 15:47] LABS: Alcohol, Blood (Medical)-Serum < 3.0 mg/dL
--- NOTE | 2018-03-31 16:41 | ED.DCSUM_ITS ---
- ER Visit Summary Date of Service: 03/31/18 Chief Complaint: Left ankle injury History of Present Illness: The patient is a 48 M presenting with left ankle injury. Patient states he tripped over furniture and fell twisting his left ankle. He did not hit his head or lose consciousness. He called EMS. After arrival his called the ER, she is concerned that he is not taking his medications for his bipolar disorder. She feels that he is a danger to himself. He frequently calls EMS. He denies suicidal ideation. He has been hospitalized in the past for his bipolar disorder. He admits that he feels that he may need hospitalization for stabilization of his medications. Physical Examination: Vitals are stable. Patient is afebrile. Alert no acute distress. HEENT exam is unremarkable. Neck is supple. Lungs are clear and equal bilaterally. Heart is regular rate and rhythm. Abdomen is soft nontender nondistended. Extremities left ankle swelling and diffuse tenderness. No foot or knee tenderness Skin is warm and dry. No focal neurologic deficit. Denies suicidal ideation Remainder of exam is unremarkable. Emergency Department Course and Treatment: Patient was given [place] x1. CBC is unremarkable. Chemistries unremarkable. Tox and alcohol are negative. X-ray left ankle shows soft tissue swelling with no fracture. Discussed with the counseling center for evaluation. Disposition: Per counseling center Impression: Left ankle sprain, bipolar disorder This note was generated with Liquid [employer] dictation software. It may contain incorrect words, spelling, and punctuation that were not noted in review of the chart prior to signing ED Disposition - Plan for ED Patient: Chief Complaint: Lower Extremity Injury Referrals: Carroll Mckeon MD [Primary Care Provider] -
--- NOTE | 2018-03-31 16:51 | ED.RN ---
CALLED [facility] TO HAVE THEM SEE PATIENT. SPOKE WITH WAI SHE STATED SHE WOULD LOOK HIM UP AND BE OVER BY [phone].
[2018-03-31 16:53] LABS: Anion Gap 11 (5-15); BUN 13 mg/dL (7-18); BUN/Creat Ratio 16.3 RATIO (10-20); Calcium,Total 8.8 mg/dL (8.5-10.1); Chloride 103 mmol/L (98-107); EST Glomerular Filtration Rate 111 mL/min (>60); Est Glom Filt Rate - Afr Amer 135 mL/min (>60); Estimated Creatinine Clearance 122.89 ml/min; Glucose 119 mg/dL (74-106); Potassium 3.8 mmol/L (3.5-5.1); Sodium Level 139 mmol/L (136-145)
--- NOTE | 2018-03-31 17:52 | ED.RN ---
CALLED [facility] TO CHECK ON STATUS OF COUNSELOR. TRANSPORT ENGINEER STATED WAI WAS ON HER WAY.
[2018-03-31 21:06] VITALS: PULSE 109; RESP 20; O2SAT 97
--- NOTE | 2018-03-31 22:00 | EKGRS_ITS ---
Test Reason : [facility] [place] Blood Pressure : / mmHG Vent. Rate : 114 BPM Atrial Rate : 114 BPM P-R Int : 150 ms QRS Dur : 094 ms QT Int : 344 ms P-R-T Axes : 047 059 022 degrees QTc Int : 474 ms Sinus tachycardia Low voltage QRS Incomplete right bundle branch block Inferior infarct , age undetermined Abnormal ECG Confirmed by FELICIA HARVEY, JOJO ([id number]), publishing editor TORSTEN WATSON ([id number]) on 04/03/2018 3:19:43 PM Referred By: LÁZARO Confirmed By:JOJO DUARTE MD
[2018-03-31 22:26] LABS: AST(SGOT) 25 U/L (15-37); Alanine Aminotransfer ALT/SGPT 34 U/L (16-61); Albumin, Serum 3.7 g/dL (3.2-5.0); Alkaline Phosphatase 99 U/L (45-117); Bilirubin, Direct 0.15 mg/dL (0.00-0.30); Protein, Total 6.7 g/dL (6.4-8.2); Valproic Acid (Depakene) Level 102 ug/mL (50-100)
[2018-04-01] MEDS: DiphenhydrAMINE 25 MG Capsule 50 MG PO (00:20)
[2018-04-01] MEDS: LORazepam 1 MG Tablet PO (03:32)
[2018-04-01 03:33] VITALS: RESP 18
--- NOTE | 2018-04-01 05:43 | NURSING ---
[facility] CALLED AND SAID SHOULD BE ABLE TO EXCEPT JUST NEEDED A PINK SLIP FAXED WITH A DATE AND TIME. FAXED PINK SLIP AT [phone] WAITING TO HEAR BACK
--- NOTE | 2018-04-01 05:45 | ED.RN ---
LOTS OF DISTRACTION TECHNIQUES HAVE BEEN USED THIS EVENING WITH THE PATIENT THAT WAS UNABLE TO RELAX OR SLEEP. MAGAZINES AND PAPER AND PENCIL FOR DRAWING, DISTRACTION AND REDIRECTING. HE HAS A LOT OF FLIGHT OF IDEAS. HE BATHED HIMSELF WITH THE HAND AUTO GLASS TECHNICIAN AND WE GAVE HIM SOME BATH WIPES TO USE INSTEAD. REGULAR DIET WITH SUICIDE PRECAUTIONS ORDERED FOR HIM.
[2018-04-01 05:57] VITALS: BP 122/85; PULSE 110; RESP 22; O2SAT 94
--- NOTE | 2018-04-01 06:08 | NURSING ---
PATIENT KEEPS REMOVING HIS CLOTHES AND HAS TO BE DIRECTED TO KEEP HIS GOWN ON. HE IS COMPLIANT BUT HAS TO BE REMINDED OFTEN.
--- NOTE | 2018-04-01 06:22 | NURSING ---
ACCEPTED TO [facility] [phone] REPORT ROOM [id number]
[2018-04-01 06:54] VITALS: BP 122/85; PULSE 110; RESP 22; TEMP 36.7
== END 2018-04-01 07:40 ==
PROVIDERS: Emergency Medicine; Emergency Provider Emergency Medicine; Family Provider Family Medicine; PCP Family Medicine
DX: S93.402A Sprain of unspecified ligament of left ankle, initial encounter (principal); F31.9 Bipolar disorder, unspecified; F32.9 Major depressive disorder, single episode, unspecified; W18.09XA Striking against other object with subsequent fall, initial encounter; Y93.9 Activity, unspecified; Y92.9 Unspecified place or not applicable; Z79.899 Other long term (current) drug therapy
CPT/HCPCS: 36415; 73610; 80048; 80076; 80164; 80307; 80320; 85025; 93005; 99285; G0480

== ENCOUNTER 2018-05-10 10:18 | Emergency (ER) | payer MEDICARE, MEDICAID, SELFPAY ==
[2018-05-10] VITALS (9 sets, daily range): BP systolic 120–146; BP diastolic 70–90; PULSE 88–104; RESP 16–20; TEMP 36.6; O2SAT 96–97; BMI 54.3
--- NOTE | 2018-05-10 11:38 | RAD_ITS ---
STUDY: X-RAY CHEST REASON FOR EXAM: Male, 48 years old. Cough. TECHNIQUE: Single AP portable view of the chest. COMPARISON: Comparison is made with prior study March 28, 2018. FINDINGS: Stable elevation of the right hemidiaphragm. No acute abnormality is seen. There is no demonstrated pleural abnormality. Normal size heart. Normal mediastinum and arlene. Normal visualized pulmonary arteries. Normal visualized aortic arch and descending thoracic aorta. Normal visualized thoracic spine. Normal visualized ribs, clavicles, and shoulders. There is no demonstrated abnormality of the visualized soft tissue structures of the upper abdomen. RAD/Chest 1 View (Portable) IMPRESSION: Normal x-ray examination of the chest. Electronically Signed: Thomas Cristina MD at 12:40 EST Tel [phone], Service support ,
[2018-05-10 12:00] LABS: Absolute Lymphocyte Count 2.01 X10^3/ul (0.83-4.51); Basophil# 0.02 X10^3/uL; Basophil% 0.2 % (0-1); Eosinophil# 0.03 X10^3/uL; Eosinophils% 0.3 % (0-5); Hematocrit 40.4 % (40-54); Hemoglobin 13.7 g/dl (13.0-16.5); Lymphocyte # 2.01 X10^3/ul (4.0); Lymphocyte % 22.5 % (19-41); Mean Corp Hgb Conc 33.9 g/gl (32-36); Mean Corpuscular Volume 85.6 fL (80-94); Mean Platelet Vol. 11.7 fl (6.2-12.0); Monocyte# 0.82 X10^3/uL; Monocyte% 9.2 % (0-10); Neutrophil # 6.02 X10^3/uL (2.7-7.7); Neutrophil % 67.6 % (47-70); POSITIVE COUNT NO; POSITIVE DIFFERENTIAL NO; POSITIVE MORPHOLOGY NO; Platelet Count 185 K/mm3 (150-450); RBC Distribution Width CV 14.5 % (11.6-14.6); RBC Distribution Width SD 44.6 fl (35.1-43.9); Red Blood Count 4.72 M/mm3 (4.6-6.2); White Blood Count 8.9 K/mm3 (4.4-11.0)
[2018-05-10 12:12] LABS: ALB/GLOB Ratio 0.9 RATIO (0.9-2.4); AST(SGOT) 24 U/L (15-37); Alanine Aminotransfer ALT/SGPT 36 U/L (16-61); Albumin, Serum 3.4 g/dL (3.2-5.0); Alkaline Phosphatase 82 U/L (45-117); Anion Gap 10 (5-15); BUN 10 mg/dL (7-18); BUN/Creat Ratio 13.1 RATIO (10-20); Calcium,Total 8.8 mg/dL (8.5-10.1); Chloride 102 mmol/L (98-107); Creatinine, Serum 0.76 mg/dL (0.70-1.30); EST Glomerular Filtration Rate 117 mL/min (>60); Est Glom Filt Rate - Afr Amer 141 mL/min (>60); Estimated Creatinine Clearance 129.35 ml/min; Globulin 3.8 g/dL (2.2-4.2); Glucose 106 mg/dL (74-106); Potassium 3.6 mmol/L (3.5-5.1); Protein, Total 7.2 g/dL (6.4-8.2); Sodium Level 139 mmol/L (136-145)
[2018-05-10 12:35] LABS: Valproic Acid (Depakene) Level 62 ug/mL (50-100)
--- NOTE | 2018-05-10 14:14 | ED.VISSUMM ---
- ER Visit Summary Date of Service: 05/10/18 Chief Complaint: Behavioral change History of Present Illness: The patient is a 48 M with an extensive psychiatric history presenting with increasingly normal behavior since he was discharged from his last psychiatric hospitalization. He was hospitalized 2 months ago for several weeks at [facility]. His medications were adjusted. He has been increasingly anxious and acting abnormally since he was discharged, similar to when he was first admitted. No fever, chills, cough, or symptoms of infection according to his and she states that he had a negative brain CT at that time. His brought him back in and is requesting that he be hospitalized again at psychiatric facility Physical Examination: Vitals are within normal limits. He is not in distress. Neck is supple. Heart tones are regular and without murmur. Lungs are clear bilaterally. Abdomen is soft and nontender. He has no focal or lateralizing neuro findings. On mental status examination, he has a flat affect and flight of ideas. He has very little insight into his issue and judgment does not appear to be intact. Test Results: His medical screening labs are unremarkable. There is no evidence of head trauma and his states that he did have recent negative brain imaging. She is confident that his issue is related to his mental health disorder. He does appear to meet criteria for inpatient psychiatric hospitalization at this time. Crisis was consulted and arrangements are being made to transfer him back to [facility] at this time. He will be transferred under a pink slip. Emergency Department Course and Treatment: Treatment Plan: Inpatient psychiatric treatment Disposition: Transfer, stable condition Impression: Initial encounter acute psychosis This note was generated with [employer] dictation software. It may contain incorrect words, spelling, and punctuation that were not noted in review of the chart prior to signing ED Disposition - Plan for ED Patient: Chief Complaint: Mental Health Referrals: Carroll Mckeon MD [Primary Care Provider] -
--- NOTE | 2018-05-10 14:17 | ED.DCSUM_ITS ---
- ER Visit Summary Date of Service: 05/10/18 Chief Complaint: Behavioral change History of Present Illness: The patient is a 48 M with an extensive psychiatric history presenting with increasingly normal behavior since he was discharged from his last psychiatric hospitalization. He was hospitalized 2 months ago for several weeks at [facility]. His medications were adjusted. He has been increasingly anxious and acting abnormally since he was discharged, similar to when he was first admitted. No fever, chills, cough, or symptoms of infection according to his and she states that he had a negative brain CT at that time. His brought him back in and is requesting that he be hospitalized again at psychiatric facility Physical Examination: Vitals are within normal limits. He is not in distress. Neck is supple. Heart tones are regular and without murmur. Lungs are clear bilaterally. Abdomen is soft and nontender. He has no focal or lateralizing neuro findings. On mental status examination, he has a flat affect and flight of ideas. He has very little insight into his issue and judgment does not appear to be intact. Test Results: His medical screening labs are unremarkable. There is no evidence of head trauma and his states that he did have recent negative brain imaging. She is confident that his issue is related to his mental health disorder. He does appear to meet criteria for inpatient psychiatric hospitalization at this time. Crisis was consulted and arrangements are being made to transfer him back to [facility] at this time. He will be transferred under a pink slip. Emergency Department Course and Treatment: Treatment Plan: Inpatient psychiatric treatment Disposition: Transfer, stable condition Impression: Initial encounter acute psychosis This note was generated with [employer] dictation software. It may contain incorrect words, spelling, and punctuation that were not noted in review of the chart prior to signing ED Disposition - Plan for ED Patient: Chief Complaint: Mental Health Referrals: Carrlol Mckeon MD [Primary Care Provider] -
--- NOTE | 2018-05-10 16:21 | ED.RN ---
IS RUNNING HOME TO [facility] PT BELONGS FOR TRANSPORT. BRADY FUNES [phone]
[2018-05-10 17:00] LABS: Amphetamine Urine VISTA NEGATIVE (<1000 ng/mL); Barbiturate Urine VISTA NEGATIVE (< 200 ng/mL); Benzodiazepine Urine VISTA NEGATIVE (< 200 ng/mL); Cocaine Urine VISTA NEGATIVE (< 300 ng/mL); Ecstacy Urine VISTA NEGATIVE (< 500 ng/mL); Methadone Urine VISTA NEGATIVE (< 300 ng/mL); PCP Urine VISTA NEGATIVE (< 25 ng/mL); THC Urine VISTA NEGATIVE (< 50 ng/mL); Vista UDS pH Range 6
[2018-05-10 17:00] LABS: Bedside Glucose 176 mg/dL (70-110)
--- NOTE | 2018-05-10 17:42 | NURSING ---
ACCEPTED AT [facility]
[2018-05-10 17:56] LABS: Bacteria 0 SEEN /hpf (None Seen); Red Blood Cells-Urine 0 SEEN /hpf (0-5); Squamous Epithelial Cells - UA 0 SEEN /hpf (0-5); White Blood Cells 0 SEEN /hpf (0-5)
[2018-05-10 17:57] LABS: Color, Urine Yellow (Yellow); Glucose, Dipstick Normal (Normal); Leukocyte Esterase-Dipstick Negative /ul (Negative); Nitrite-Dipstick Negative (Negative); Occult Blood-Urine Negative /ul (Negative); Protein-Dipstick 15 mg/dl (Negative); Specific Gravity, Urine 1.015 (1.002-1.030); Urine Bilirubin Dipstick Negative (Negative); Urine Clarity Clear (Clear); Urine Urobilinogen Normal (Normal)
[2018-05-10 17:59] LABS: Ketone-Dipstick 150 mg/dl (Negative)
--- NOTE | 2018-05-10 18:00 | ED.RN ---
lab called ketones 150. dr damon
[2018-05-10 18:05] LABS: Mucous, Urine RARE /hpf (<or=2+)
[2018-05-10] MEDS: Ibuprofen 600 MG Tablet PO (18:36)
--- NOTE | 2018-05-10 20:10 | NURSING ---
BELONGING LIST BLACK BAG, 3 PAIRS SOCKS, SWEAT SHIRT, DIABETIC BLUE TENNIS SHOES, LONG SLEEVE SHIRT, BLUE SWATS, ORANGE T SHIRT, BLUE T SHIRT, HASSAN SOCKS, BLACK SHORTS, BLACK BOXER, HASSAN BOXER
== END 2018-05-10 20:30 ==
PROVIDERS: Emergency Provider Emergency Medicine; Family Provider Family Medicine; PCP Family Medicine
DX: F23 Brief psychotic disorder (principal); F20.9 Schizophrenia, unspecified; Z79.899 Other long term (current) drug therapy
CPT/HCPCS: 71045; 80053; 80164; 80307; 80320; 81001; 82962; 85025; 87086; 99283; G0480

== ENCOUNTER 2018-10-28 06:37 | Emergency (ER) | payer MEDICARE, SELFPAY ==
[2018-05-10 10:20] VITALS: BMI 54.3
[2018-10-28 06:37] VITALS: BP 168/89; PULSE 135; RESP 24; TEMP 36.9; O2SAT 97; BMI 53.4
[2018-10-28 06:45] LABS: Bedside Glucose 400 mg/dL (70-110)
--- NOTE | 2018-10-28 07:15 | ED.DCSUM_ITS ---
- ER Visit Summary Date of Service: 10/28/18 Chief Complaint: Elevated blood sugar History of Present Illness: The patient is a 48 M presenting with elevated blood sugar. Patient states that he has not been taking his medication for the past week. He states he uses a pill container to count his medications. He states he forgot to fill the container at the beginning of the week. On he realized that he had not been taking his medications. He started to take his metformin at that time. He states that there is that his blood sugar was 600. He states he came down to 540 after taking his metformin. He complains of urinary frequency. He has mild diarrhea. He denies chest pain or shortness of breath. Physical Examination: Vitals are stable. Heart rate 135. Patient is afebrile. Alert no acute distress. HEENT exam is unremarkable. Neck is supple. Lungs are clear and equal bilaterally. Heart is regular and tachycardic Abdomen is soft nontender nondistended. Extremities are unremarkable. Skin is warm and dry. No focal neurologic deficit. Remainder of exam is unremarkable. Emergency Department Course and Treatment: Patient was given IV fluids. CBC unremarkable. Chemistry shows sodium 132, glucose 392, BUN 19. Anion gap is normal. Patient was given insulin subcutaneously. Repeat BGT is 340. Urinalysis shows 0-5 white cells, 0-5 red cells, glucose. Valproic acid level was 30. Patient was given additional dose of subcutaneous insulin. Repeat BGT was 310. Repeat heart rate is 98. Patient is advised to take his medication as directed. Advised to follow-up with his primary care physician. Advised return to ED for worsening complaints. Disposition: Discharge home Impression: Hyperglycemia This note was generated with [employer] dictation software. It may contain incorrect words, spelling, and punctuation that were not noted in review of the chart prior to signing ED Disposition - Plan for ED Patient: Instructions: ED Hyperglycemia Diabetic Referrals: Carroll Mckeon MD [Primary Care Provider] -
[2018-10-28] MEDS: 0.9% Normal Saline 1,000 ML 1000 ML IV (07:18)
[2018-10-28 07:32] LABS: Absolute Lymphocyte Count 3.53 X10^3/ul (0.83-4.51); Absolute Neutrophil Count 5.8 X10^3/uL (2.0-7.7); Basophil# 0.01 X10^3/uL; Basophil% 0.1 % (0-1); Eosinophil# 0.15 X10^3/uL; Eosinophils% 1.4 % (0-5); Hematocrit 44.3 % (40-54); Hemoglobin 15.4 g/dl (13.0-16.5); Lymphocyte # 3.53 X10^3/ul (4.0); Mean Corp Hgb Conc 34.8 g/gl (32-36); Mean Corpuscular Hgb 28.8 pg (27.0-32.0); Mean Corpuscular Volume 82.8 fL (80-94); Mean Platelet Vol. 12.5 fl (6.2-12.0); Monocyte# 0.92 X10^3/uL; Monocyte% 8.9 % (0-10); Neutrophil # 5.75 X10^3/uL (2.7-7.7); Neutrophil % 55.5 % (47-70); Platelet Count 187 K/mm3 (150-450); RBC Distribution Width CV 14.4 % (11.6-14.6); RBC Distribution Width SD 43.4 fl (35.1-43.9); Red Blood Count 5.35 M/mm3 (4.6-6.2); White Blood Count 10.4 K/mm3 (4.4-11.0)
[2018-10-28 07:33] LABS: Anion Gap 13 (5-15); BUN 19 mg/dL (7-18); Calcium,Total 8.5 mg/dL (8.5-10.1); Chloride 95 mmol/L (98-107); Creatinine, Serum 1.27 mg/dL (0.70-1.30); EST Glomerular Filtration Rate 65 mL/min (>60); Est Glom Filt Rate - Afr Amer 78 mL/min (>60); Estimated Creatinine Clearance 77.41 ml/min; Glucose 392 mg/dL (74-106); Potassium 4.2 mmol/L (3.5-5.1); Sodium Level 132 mmol/L (136-145)
[2018-10-28 07:54] LABS: POSITIVE COUNT NO; POSITIVE DIFFERENTIAL NO; POSITIVE MORPHOLOGY NO
[2018-10-28] MEDS: Insulin Lispro 100 UNIT/ML INSULN.PEN 10 UNIT SC ×2 (08:02→09:18)
[2018-10-28 08:20] LABS: Bacteria 0 SEEN /hpf (None Seen); Mucous, Urine 0 SEEN /hpf (<or=2+)
[2018-10-28 08:30] LABS: Color, Urine Yellow (Yellow); Glucose, Dipstick 1000 mg/dl (Normal); Ketone-Dipstick 50 mg/dl (Negative); Leukocyte Esterase-Dipstick 25 /ul (Negative); Nitrite-Dipstick Negative (Negative); Occult Blood-Urine 25 /ul (Negative); Protein-Dipstick Negative (Negative); Specific Gravity, Urine 1.015 (1.002-1.030); Urine Bilirubin Dipstick Negative (Negative); Urine Clarity Sl. Cloudy (Clear); Urine Urobilinogen Normal (Normal)
[2018-10-28 08:37] VITALS: BP 114/78; PULSE 106; RESP 18; O2SAT 95
[2018-10-28 08:40] LABS: Red Blood Cells-Urine 0-5 SEEN /hpf (0-5); Squamous Epithelial Cells - UA 0-5 SEEN /hpf (0-5); White Blood Cells 0-5 SEEN /hpf (0-5)
[2018-10-28 09:14] LABS: Valproic Acid (Depakene) Level 30 ug/mL (50-100)
[2018-10-28 09:16] LABS: Bedside Glucose 340 mg/dL (70-110)
[2018-10-28 10:00] VITALS: BP 135/65; PULSE 102; RESP 18; O2SAT 100
[2018-10-28 10:26] LABS: Bedside Glucose 310 mg/dL (70-110)
--- NOTE | 2018-10-28 10:32 | ED.DEP ---
ED Disposition - Plan for ED Patient: Instructions: ED Hyperglycemia Diabetic Referrals: Carroll Mkceon MD [Primary Care Provider] -
== END 2018-10-28 10:41 | disposition home or self-care (01) ==
LOC: ED 07:15
PROVIDERS: Emergency Provider Emergency Medicine; Family Provider Family Medicine; PCP Family Medicine
DX: E11.65 Type 2 diabetes mellitus with hyperglycemia (principal); R19.7 Diarrhea, unspecified; Z91.14 Patient's other noncompliance with medication regimen; J45.909 Unspecified asthma, uncomplicated; I10 Essential (primary) hypertension; E78.00 Pure hypercholesterolemia, unspecified; F31.9 Bipolar disorder, unspecified; Z79.84 Long term (current) use of oral hypoglycemic drugs; Z79.899 Other long term (current) drug therapy; Z87.891 Personal history of nicotine dependence
CPT/HCPCS: 80048; 80164; 81001; 82962; 85025; 96360; 96361; 96372; 99284; J7030; A4216

== ENCOUNTER 2019-03-09 12:00 | Emergency (ER) | payer MEDICARE, SELFPAY ==
[2019-03-09] VITALS (10 sets, daily range): BP systolic 125–137; BP diastolic 78–89; PULSE 92–95; RESP 16–20; TEMP 37.3; O2SAT 94; BMI 53.6
[2019-03-09 13:18] LABS: Absolute Lymphocyte Count 2.12 X10^3/uL (0.83-4.51); Basophil# 0.03 X10^3/uL; Basophil% 0.4 % (0-1); Hematocrit 45.9 % (40-54); Hemoglobin 15.3 g/dL (13.0-16.5); Lymphocyte # 2.12 X10^3/ul (4.0); Mean Corp Hgb Conc 33.3 g/dL (32-36); Mean Corpuscular Hgb 28.8 pg (27.0-32.0); Mean Corpuscular Volume 86.3 fL (80-94); Mean Platelet Vol. 12.2 fl (6.2-12.0); Monocyte# 0.72 X10^3/uL; Monocyte% 9.2 % (0-10); NRBC Flagged by Analyzer 0 % (0-5); Neutrophil # 4.95 X10^3/uL (2.7-7.7); Neutrophil % 63.1 % (47-70); POSITIVE MORPHOLOGY YES; Platelet Count 193 K/mm3 (150-450); RBC Distribution Width CV 13.4 % (11.6-14.6); Red Blood Count 5.32 M/mm3 (4.6-6.2); White Blood Count 7.8 K/mm3 (4.4-11.0)
[2019-03-09 13:39] LABS: ALB/GLOB Ratio 0.8 RATIO (0.9-2.4); AST(SGOT) 26 U/L (15-37); Alanine Aminotransfer ALT/SGPT 35 U/L (16-61); Albumin, Serum 3.7 g/dL (3.2-5.0); Alkaline Phosphatase 124 U/L (45-117); Anion Gap 13 (5-15); BUN 20 mg/dL (7-18); BUN/Creat Ratio 18.3 RATIO (10-20); Chloride 104 mmol/L (98-107); Creatinine, Serum 1.09 mg/dL (0.70-1.30); EST Glomerular Filtration Rate 77 mL/min (>60); Est Glom Filt Rate - Afr Amer 93 mL/min (>60); Estimated Creatinine Clearance 83.78 ml/min; Globulin 4.4 g/dL (2.2-4.2); Glucose 131 mg/dL (74-106); Potassium 3.1 mmol/L (3.5-5.1); Protein, Total 8.1 g/dL (6.4-8.2); Sodium Level 143 mmol/L (136-145)
[2019-03-09 13:42] LABS: Differential Indicated SCAN CRITERIA MET
[2019-03-09 13:43] LABS: Platelet Estimate ADEQUATE (ADEQ); Red Cell Morphology NORM C+C NORMAL (NORM C&C)
[2019-03-09 13:56] LABS: Amphetamine Urine VISTA NEGATIVE (<1000 ng/mL); Barbiturate Urine VISTA NEGATIVE (< 200 ng/mL); Benzodiazepine Urine VISTA NEGATIVE (< 200 ng/mL); Cocaine Urine VISTA NEGATIVE (< 300 ng/mL); Ecstacy Urine VISTA NEGATIVE (< 500 ng/mL); Methadone Urine VISTA NEGATIVE (< 300 ng/mL); PCP Urine VISTA NEGATIVE (< 25 ng/mL); THC Urine VISTA NEGATIVE (< 50 ng/mL); Vista UDS pH Range 6
--- NOTE | 2019-03-09 14:00 | ED.DCSUM_ITS ---
- ER Visit Summary Date of Service: 03/09/19 Chief Complaint: Bipolar History of Present Illness: The patient is a 49 M with a history of bipolar disorder. He stopped taking his medications. He is not sleeping. He is having hallucinations. His says he is talking about weapons, although he has no weapons in the home. He denies any suicidal or homicidal ideation. Physical Examination: Afebrile and vital signs unremarkable. Patient is unkempt. No shoes. He is alert and oriented to person. Regular heart rate. Lungs clear. Abdomen soft. Moves all extremities. Normal ambulation. Test Results: CBC normal potassium 3.1. Glucose 131 and BUN 20. Alkaline phosphatase 124. Tox screen negative. Emergency Department Course and Treatment: Patient had psychiatric precautions. I completed a pink slip. Medical clearance was performed. Work-up unremarkable except for potassium 3.1. He was treated with K-Dur 40 mEq. Patient is medically cleared for transfer and admission at a psychiatric facility. We are awaiting placement. Treatment Plan: As above Disposition: Transfer pending Impression: 1. Psychosis 2. Hypokalemia This note was generated with [employer] software. It may contain incorrect words, spelling, and punctuation that were not noted in review of the chart prior to signing ED Disposition - Plan for ED Patient: Referrals: Carroll Mckeon MD [Primary Care Provider] -
[2019-03-09 14:04] LABS: Alcohol, Blood (Medical)-Serum < 3.0 mg/dL
--- NOTE | 2019-03-09 14:30 | CM.ED ---
SOCIAL WORK ASSESSMENT INFORMANT: DR. FITCH REASON FOR REFERRAL: MENTAL HEALTH- PARANOID, AUDITORY HALLUCINATIONS CHIEF COMPLIANT: HX OF BIPOLAR HAVING AUDITORY HALLUCINATIONS, PARANOID DELUSIONS, HASN'T SLEPT IN 4 DAYS. LIVING SITUATION: HOME WITH AND 13 Y/O DAUGHTER, JOSE ANTONIO SUPPORT/RESOURCES: FAMILY, [facility] MENTAL HEALTH TREATMENT/HISTORY: PER PATIENT HAS BEEN DIAGNOSED WITH BIPOLAR, MANIC DEPRESSION, AND SCHIZOPHRENIA. PATIENT STATES IS COMPLIANT WITH MEDICATIONS AND REPORTS DOES ASSIST PATIENT WITH MEDICATION MANAGEMENT. SUBSTANCE ABUSE HISTORY: PATIENT REPORTS SUBSTANCE USE IN THE PAST. TOX SCREEN NEGATIVE. APPEARANCE/GENERAL BEHAVIOR: DISHEVELED, CALM MOOD/AFFECT: DEPRESSED, ANXIOUS THOUGHT PROCESS: AUDITORY HALLUCINATIONS, PARANOID, DELUSIONS RISK TO SELF/OTHERS: PATIENT DENIES SUICIDAL AND HOMICIDAL IDEATIONS. NO VIOLENT BEHAVIORS REPORTED OR EXHIBITED WHILE IN EMERGENCY DEPARTMENT. ASSESSMENT: MET WITH PATIENT IN ROOM. INTRODUCED ROLE AND REASON FOR REFERRAL. PATIENT WOULD NOT TALK UNTIL NURSE WALKED OUT OF ROOM AND CLOSED THE DOOR. ONCE NURSE OUT OF THE ROOM PATIENT STATED THIS CONVERSATION IS BETWEEN YOU AND ME. YOU CAN'T TELL ANYONE! ATTEMPTED TO ASK QUESTIONS AND PATIENT STOPPED THIS WORKER AND REPORTED HE IS HEARING [employer] RINGING AND STATES THIS HAS BEEN GOING ON SINCE 1996. PATIENT STATES HAS NOT SLEPT IN 4 DAYS. PATIENT DENIES ANY SUICIDAL OR HOMICIDAL IDEATIONS. PATIENT BEGAN CLOSING HIS EYES AND WOULDN'T RESPOND TO ANY FURTHER QUESTIONS. PATIENT DID GIVE PERMISSION FOR THIS WORKER TO CALL . CALL TO PATIENT'S . PER , PATIENT HAS BEEN GETTING WORSE AND WORSE D/T PARANOIA AND DELUSIONS. REPORTS HAS ASSISTED PATIENT WITH MEDICATION MANAGEMENT. REPORTS PATIENT HAS BEEN IN AND OUT OF PSYCH HOSPITALS FOR MANY YEARS. DISCUSSED CASE WITH DR. FITCH. RECOMMENDING INPATIENT PSYCH HOSPITALIZATION. PLAN: REFERRAL FOR INPATIENT PSYCH. HARSHA SHUKLA, NURSING HOME ADMINISTRATOR, FIRE ENGINE PUMP OPERATOR.
--- NOTE | 2019-03-09 14:44 | CM.ED ---
SOCIAL WORK CALL TO [facility], SPOKE WITH VELIA. UPDATED ON REFERRAL. REFERRAL FAXED TO [facility] FOR REVIEW AT THIS TIME. HARSHA SHUKLA, NUTRITIONIST, ASSEMBLY INSTRUCTIONS WRITER.
--- NOTE | 2019-03-09 15:53 | CM.ED ---
SOCIAL WORK CALL TO VELIA WITH [facility]. REFERRAL HAS BEEN RECEIVED. PER VELIA, CALLING THEIR DOCTOR AT THIS TIME. WILL CALL THIS WORKER BACK SHORTLY. HARSHA SHUKLA, CURRICULUM AND ASSESSMENT COORDINATOR, CRAY FISHING HAND.
--- NOTE | 2019-03-09 16:23 | CM.ED ---
SOCIAL WORK CALL FROM [facility]. PATIENT ACCEPTED BY DR. BABCOCK. NURSE TO CALL REPORT TO . COPY OF PINK SLIP FAXED AT THIS TIME. STAFF UPDATED. ZONING ASSISTANT TO SET UP TRANSPORT. HARSHA SHUKLA, DOCK SUPERINTENDENT, INSTRUMENT AND ELECTRICAL TECHNICIAN.
--- NOTE | 2019-03-09 17:13 | CM.ED ---
SOCIAL WORK IRON AND STEEL WORK SUPERVISOR SET UP TRANSPORT, ETA 2 HOURS BY [facility] PATIENT AND UPDATED. HARSHA SHUKLA, WINDOWS SYSTEMS ARCHITECT, ELASTIC ATTACHER COVERSTITCH.
[2019-03-09] MEDS: Divalproex Sodium 250 MG Tablet 500 MG PO (18:15)
--- NOTE | 2019-03-09 19:28 | ED.RN ---
[facility] just phoned to state that due to a high call volume they will be several hours delayed with transport.
--- NOTE | 2019-03-09 19:28 | NURSING ---
[facility] CALLED SAYING IT WILL BE SEVERAL MORE HOURS TILL P/U
--- NOTE | 2019-03-09 20:37 | NURSING ---
NURSE TALKED TO [facility] AND WAS TOLD WOULD NOT BE HERE TILL CLOSE TO 3AM
--- NOTE | 2019-03-09 20:39 | NURSING ---
[facility] CALL[facility] AND STATES DUE TO A BUSY NIGHT THEY WILL NOT BE ABLE TO ARRIVE TO TRANSPORT PT UNTIL 3AM.
[2019-03-09] MEDS: Atorvastatin Calcium 10 MG Tablet 5 MG PO (21:58)
[2019-03-09] MEDS: Gabapentin 600 MG Tablet PO (21:59)
[2019-03-09] MEDS: busPIRone 15 MG TABLET PO (21:59)
[2019-03-09] MEDS: Benztropine 2 MG Tablet 1 MG PO (21:59)
[2019-03-09] MEDS: RisperiDONE 2 MG Tablet 4 MG PO (22:00)
[2019-03-10] VITALS (7 sets, daily range): BP systolic 100–112; BP diastolic 63–69; PULSE 74–97; RESP 15–20; TEMP 36.4–37.1; O2SAT 90–95
[2019-03-10] MEDS: LORazepam 1 MG Tablet 2 MG PO (00:04)
--- NOTE | 2019-03-10 00:38 | NURSING ---
[facility] CALLED AGAIN AND SAID WON'T BE ABLE TO DO TRANSPORT UNTIL AROUND 7A OR 8A
[2019-03-10] MEDS: Divalproex Sodium 250 MG Tablet 500 MG PO (06:33)
[2019-03-10] MEDS: Ascorbic Acid 500 MG Tablet PO (06:33)
[2019-03-10] MEDS: Glimepiride 4 MG Tablet PO (06:33)
[2019-03-10] MEDS: metFORMIN HCl 1,000 MG Tablet 1000 MG PO (06:33)
[2019-03-10] MEDS: Multivitamins,Therapeutic Tablet 1 TABLET PO (06:33)
[2019-03-10] MEDS: busPIRone 15 MG TABLET PO (06:33)
== END 2019-03-10 09:05 ==
LOC: ED 12:54
PROVIDERS: Emergency Provider Emergency Medicine; Family Provider Family Medicine; PCP Family Medicine
DX: F29 Unspecified psychosis not due to a substance or known physiological condition (principal); E87.6 Hypokalemia; F31.9 Bipolar disorder, unspecified; Z91.14 Patient's other noncompliance with medication regimen; E11.9 Type 2 diabetes mellitus without complications; I10 Essential (primary) hypertension; E78.00 Pure hypercholesterolemia, unspecified; Z79.84 Long term (current) use of oral hypoglycemic drugs; Z79.899 Other long term (current) drug therapy; Z72.0 Tobacco use
CPT/HCPCS: 80053; 80307; 80320; 85025; 99285; G0480

== ENCOUNTER → 2019-04-17 | Outpatient (CLI) | payer MEDICARE, MEDICAID, SELFPAY ==
[2019-03-09 12:01] VITALS: BMI 53.6
== END | disposition home or self-care (01) ==
LOC: SL 06:41
PROVIDERS: Family Provider Family Medicine; PCP Family Medicine; Referring Provider Psychiatry & Neurology Psychiatry; Visit Provider Psychiatry & Neurology Psychiatry
DX: G47.33 Obstructive sleep apnea (adult) (pediatric) (principal); I10 Essential (primary) hypertension
CPT/HCPCS: 95810

== ENCOUNTER → 2022-04-26 | Outpatient (CLI) | payer MEDICARE, MEDICAID, SELFPAY ==
[2022-04-26 16:10] LABS: Erythrocyte Sedimentation Rate 18 mm/hr (0-20)
[2022-04-26 16:55] LABS: CRP 4.65 mg/L (0.0-3.0); LDH 304 U/L (87-241)
[2022-04-28 13:08] LABS: Anti-Centromere B Ab <0.2 AI (0.0-0.9); Anti-Chromatin <0.2 AI (0.0-0.9); Anti-Jo <0.2 AI (0.0-0.9); Anti-Scleroderma-70 AB <0.2 AI (0.0-0.9); RNP Ab <0.2 AI (0.0-0.9); SJOGREN'S Anti-SS-A test < 0.2 AI (0.0-0.9); SJOGREN'S Anti-SS-B test < 0.2 AI (0.0-0.9); Smith Ab <0.2 AI (0.0-0.9)
[2022-04-28 16:09] LABS: Endomysial Antibody IgA Negative (Negative)
[2022-04-28 16:54] LABS: Anti-dsDNA Ab 6 IU/mL (0-9)
[2022-04-30 14:36] LABS: Immunoglobulin A 179 mg/dL (90-386); t-Transglutaminase IgA <2 U/mL (0-3)
[2022-05-05 12:08] LABS: Albumin 3.5 g/dL (2.9-4.4); Alpha-1-Globulins 0.1 g/dL (0.0-0.4); Alpha-2-Globulins 0.8 g/dL (0.4-1.0); Cytoplasmic Ab (C-ANCA) <1:20 titer (Neg:<1:20); Gamma Globulin 0.9 g/dL (0.4-1.8); Immunoglobulin A 178 mg/dL (90-386); Immunoglobulin G 1001 mg/dL (603-1613); Immunoglobulin M 91 mg/dL (20-172); PROEL- TOTAL PROTEIN 6.5 g/dL (6.0-8.5)
[2022-05-05 16:10] LABS: Immunoglobulin E 215 IU/mL (6-495); Perinuclear Ab (P-ANCA) <1:20 titer (Neg:<1:20)
== END | disposition home or self-care (01) ==
PROVIDERS: PCP Family Medicine; Visit Provider Internal Medicine Gastroenterology
DX: R19.7 Diarrhea, unspecified (principal)
CPT/HCPCS: 36415; 82784; 82785; 83516; 83615; 84165; 85652; 86140; 86225; 86235; 86255; 86256; 86334

== ENCOUNTER → 2022-07-09 | Outpatient (CLI) | payer MEDICARE, MEDICAID, SELFPAY ==
[2022-07-09 10:15] LABS: Absolute Lymphocyte Count 2.79 X10^3/uL (0.83-4.51); Absolute Neutrophil Count 3.2 X10^3/uL (2.0-7.7); Basophil# 0.05 X10^3/uL; Basophil% 0.7 % (0-1); Eosinophil# 0.07 X10^3/uL; Hematocrit 44.1 % (40-54); Hemoglobin 14.7 g/dL (13.0-16.5); Lymphocyte # 2.79 X10^3/ul (0.83-4.51); Lymphocyte % 41.2 % (19-41); Mean Corp Hgb Conc 33.3 g/dL (32-36); Mean Corpuscular Hgb 28.7 pg (27.0-32.0); Monocyte# 0.64 X10^3/uL; Monocyte% 9.4 % (0-10); NRBC Flagged by Analyzer 0 % (0-5); Neutrophil # 3.21 X10^3/uL (2.7-7.7); Neutrophil % 47.4 % (47-70); Platelet Count 176 K/mm3 (150-450); RBC Distribution Width CV 13.2 % (11.6-14.6); RBC Distribution Width SD 40.5 fl (35.1-43.9); Red Blood Count 5.13 M/mm3 (4.6-6.2); White Blood Count 6.8 K/mm3 (4.4-11.0)
[2022-07-09 10:35] LABS: Hemoglobin A1c 11.5 % (3.8-5.6)
[2022-07-09 10:49] LABS: ALB/GLOB Ratio 0.7 RATIO (0.9-2.4); AST(SGOT) 17 U/L (15-37); Alanine Aminotransfer ALT/SGPT 32 U/L (16-61); Alkaline Phosphatase 96 U/L (45-117); Anion Gap 11 (5-15); BUN 9 mg/dL (7-18); BUN/Creat Ratio 11.5 RATIO (10-20); Calcium,Total 8.5 mg/dL (8.5-10.1); Chloride 100 mmol/L (98-107); Cholesterol 122 mg/dL (200); Creatinine, Serum 0.79 mg/dL (0.70-1.30); EST Glomerular Filtration Rate 111 mL/min (>60); Est Glom Filt Rate - Afr Amer 134 mL/min (>60); Free T3 2.2 pg/mL (2.18-3.98); Globulin 4.3 g/dL (2.2-4.2); Glucose 271 mg/dL (74-106); High Density Lipoprotein 31 mg/dL; Potassium 3.7 mmol/L (3.5-5.1); Protein, Total 7.3 g/dL (6.4-8.2); Sodium Level 136 mmol/L (136-145); Thyroid Stim Hormone (TSH) 1.75 uIU/mL (0.358-3.74); Triglycerides 226 mg/dL; Very Low Density Lipoprotein 45 mg/dL (5-40)
[2022-07-09 11:02] LABS: Valproic Acid (Depakene) Level 60 ug/mL (50-100)
[2022-07-09 11:07] LABS: Vitamin D,25 Hydroxy 30.4 ng/mL
[2022-07-09 14:32] LABS: Insulin 16.3 mU/L (2.6-37.6)
== END | disposition home or self-care (01) ==
LOC: LAB 09:48
PROVIDERS: PCP Internal Medicine; Referring Provider Psychiatry & Neurology Psychiatry; Visit Provider Psychiatry & Neurology Psychiatry
DX: Z79.899 Other long term (current) drug therapy (principal); N17.9 Acute kidney failure, unspecified; F31.9 Bipolar disorder, unspecified; E11.9 Type 2 diabetes mellitus without complications; E55.9 Vitamin D deficiency, unspecified; E78.00 Pure hypercholesterolemia, unspecified; I10 Essential (primary) hypertension; E66.9 Obesity, unspecified; R07.9 Chest pain, unspecified
CPT/HCPCS: 36415; 80053; 80061; 80164; 82140; 82306; 83036; 83525; 84439; 84443; 84481; 85025

== ENCOUNTER 2022-09-14 12:42 | Day surgery (SDC) | payer MEDICARE, MEDICAID, SELFPAY ==
[2022-09-14] VITALS (7 sets, daily range): BP systolic 117–151; BP diastolic 74–79; PULSE 69–88; RESP 16–18; TEMP 36.6–36.7; O2SAT 94–96; BMI 47.6
[2022-09-14] MEDS: Lactated Ringers 1,000 ML 15 ML IV (13:11)
[2022-09-14 13:30] LABS: Bedside Glucose 205 mg/dL (74-106)
--- NOTE | 2022-09-14 14:00 | IMM_PTH ---
PATIENT: VANESSA FUNES LOC: EN U#:[id number] AGE/SX: 52/M ROOM: RE09/14/[address]: Dr. Brayden Morin DO : 1970 BED: DIS: 09/14/2022 SPEC #: [id number] RECD: 09/15/22 14:18 STATUS: KARY TRACIE #: [id number] RYLAN: 09/14/22 14:[address]: Brayden Morin DEPT: IMMUNOHISTOCHEMISTRY RECD BY: Sarah Gonzalez ENTERED: 09/15/22 14:18 SP TYPE: IMMUNO OTHR DR: Dr. Jackeline Ball MD Tissues: A - Stomach, NOS Procedures: H Pylori (initial) PHYSICIAN & INSTITUTION [place] [id number] SPECIMEN INFORMATION: Tissue Source: A ? Gastric ulcer Clinical Info: Chronic diarrhea Specimen Number: [id number] CPT code: 63139 METHODOLOGY: Deparaffinized sections of prefer/formalin-fixed tissue or PAP/DQ stained slides are incubated with monoclonal/polyclonal antibodies/oligonucleotide probes. Localization is made via biotin free immunoperoxidase method. Appropriate controls are performed and reacted as expected. Results on target cell population are indicated in the following table: RESULTS: ANTIBODY / CLONE RESULT Block A H Pylori (polyclonal) negative These tests were developed and their performance characteristics determined by [facility]. They may not have been cleared or approved by the U.S. Food and Drug Administration. The FDA has determined that such clearance or approval is not necessary. The above immunohistochemical/dualISH markers are ordered and reviewed by the Pathologist. INTERPRETATION: A. Gastric ulcer, biopsy: Negative for Helicobacter pylori organisms. SJ:virgen 09/16/2022
--- NOTE | 2022-09-14 14:00 | EGD_PTH ---
PATIENT: VANESSA FUNES LOC: EN U#:[id number] AGE/SX: 52/M ROOM: RE09/14/[address]: Dr. Brayden Morin DO : 1970 BED: DIS: 09/14/2022 SPEC #: [id number] RECD: 09/14/22 16:42 STATUS: KARY TRACIE #: [id number] RYLAN: 09/14/22 14:[address]: Brayden Morin DEPT: SURGICAL PATHOLOGY RECD BY: Radha Brandt ENTERED: 09/15/22 09:26 SP TYPE: EGD BIOPSY VALORIE DR: Dr. Jackeline Ball MD Tissues: A - Gastric mucous membrane B - Ileum, NOS C - COLON BIOPSY Procedures: Surgery Specimen Level IV HEADER OPERATION: Colonoscopy, EGD ([facility]) with biopsies PRE-OP DIAGNOSIS: Chronic diarrhea TISSUE SUBMITTED: A ? Gastric ulcer biopsy, B ? Terminal ileum biopsy, C ? Random colon biopsies MICROSCOPIC DIAGNOSIS A. Gastric ulcer, biopsy: Fragments of gastric mucosa with focal ulceration, fibrinous exudation and acute and chronic inflammation. B. Terminal ileum, biopsy: Fragments of small intestinal mucosa, no pathologic diagnosis. C. Colon, random biopsy: Fragments of colonic mucosa, no pathologic diagnosis. SJ:rg 09/16/2022 COMMENT A. The results of immunohistochemistry for Helicobacter pylori will be reported separately ([id number]). MICROSCOPIC DESCRIPTION Slides are reviewed. GROSS DESCRIPTION A - Received in fixative is one container labeled with the patient's name and designated gastric ulcer biopsy. The specimen consists of two irregular fragments of light avendaño soft tissue that in aggregate measure 0.8 x 0.5 x 0.1 cm. The specimen is totally submitted in one cassette. B - Received in fixative is one container labeled with the patient's name and designated terminal ileum. The specimen consists of multiple irregular fragments of light avendaño soft tissue that in aggregate measure 0.9 x 0.7 x 0.1 cm. The specimen is totally submitted in one cassette. C - Received in fixative is one container labeled with the patient's name and designated random colon biopsy. The specimen consists of multiple irregular fragments of light avendaño soft tissue that in aggregate measure 1.0 x 0.6 x 0.1 cm. The specimen is totally submitted in one cassette. / AM:virgen 09/15/2022 TC:2 CPT: 78888 x3
--- NOTE | 2022-09-14 14:21 | PCM.HP.BLA ---
History and Physical Date of Admission: 09/14/22 2 M who presents to the office today for Initial consult. Dev established with this clinic 04.26.22 with referral from PCP for evaluation of urgent diarrhea with mild precipitating abdominal cramping that has been present for several months; initially was getting better but then has gotten worse recently but without abdominal cramping. Stools are typically looser and can be r/t food triggers. PCP suspects may be r/t Ozempic; also takes metformin and injectable insulin. PMH bipolar 1/schizoaffective disorder; MINNIE. A1c 01.26.22 11.6 ROS Const Constitutional: No anorexia, fatigue, fever(s), weight change or sleep problems Eyes Eyes: No change in vision ENT ENT: No abnormal hearing, difficulty swallowing, mouth lesions, tongue swelling or throat swelling Resp Respiratory: No cough or shortness of breath Cardio Cardiology: No chest pain at rest, chest pain with exertion, shortness of breath or dyspnea on exertion Gastro GI: No difficulty swallowing Genitourinary Male: No difficulty urinating or burning urination Musc Musculoskeletal: No joint pain, joint swelling, muscle weakness or decreased muscle mass Skin Skin: No hair loss in leg, yellowing of the eye, itchy eyes, rash, skin ulcer or skin swelling Neuro Neurology: No abnormal hearing, abnormal movements, confusion, unsteady gait/balance or memory loss Psych Psychiatric: No anxiety, No confusion and No memory loss Endo Endocrine: No fatigue or weight change Aller/Imm Allergy/Immunologic: No itchy eyes, throat swelling or tongue swelling Valeriy/Lymp Hematologic/Lymphatic: No easy bleeding, easy bruising or enlarged lymph nodes Exam Const General: cooperative and comfortable Nutritional Appearance: average body habitus and well nourished [facility] Head: normal to inspection Ears: hearing grossly normal bilaterally Nose: external nose normal Face and sinus: normal facial exam Mouth: oral mucosae normal Throat: posterior oropharynx normal Eyes General: appearance normal, both eyes and all related structures Neck Neck: normal visual inspection Chest Chest palpation & inspection: normal inspection of the chest and normal palpation of entire chest wall Resp Effort & Inspection: normal respiratory effort Auscultation: Bilateral: Clear to Auscultation Cardio Palpation: normal PMI Rate: regular rate Rhythm: regular rhythm GI Inspection: normal to inspection Auscultation: normal bowel sounds Percussion: normal to percussion Palpation: no hepatosplenomegaly Skin General: no rashes or lesions noted Neuro General: patient alert Extrem General: normal to inspection Psych Affect: normal affect Quality Reporting Tobacco Screening ([facility] 138) Smoking Status: Former smoker Assessment and Plan Assessment and Plan (1) Diarrhea: ?Status:?Chronic ?Plan: Patient is a 52-year-old who comes in with worsening diarrhea, weight loss and poorly controlled diabetes mellitus.? The differential diagnosis does include exocrine pancreatic insufficiency, secretory diarrhea secondary to inflammatory bowel disease, small bacterial overgrowth, infectious colitis or enterocolitis, celiac disease, food sensitivity.? It is concerning that he has a 50 pound weight loss and has never had a colonoscopy.? He should undergo biochemical testing and stool testing for fecal fat, infection, pancreatic insufficiency and chronic inflammation with white blood cells.? He should also undergo colonoscopy because he has not had a colonoscopy in the past.? He also has a positive family history of colon cancer in his uncle and a positive family history of breast cancer in his mother.? He was explained alternatives, risk, benefits including not withstanding bleeding, infection, sepsis, perforation, need for emergent urgent .? He will have an ASA of 3. ? ? ? Orders: Orders CRP Today R19.7 - Diarrhea, unspecified ? Erythrocyte Sed Rate Today R19.7 - Diarrhea, unspecified ? ANCA Today R19.7 - Diarrhea, unspecified ? Celiac Disease Profile Today R19.7 - Diarrhea, unspecified ? Immunoglobulin A Today R19.7 - Diarrhea, unspecified ? Immunoglobulin E Today R19.7 - Diarrhea, unspecified ? Immunoglobulin G Today R19.7 - Diarrhea, unspecified ? Immunoglobulin M Today R19.7 - Diarrhea, unspecified ? LDH Today R19.7 - Diarrhea, unspecified ? RANJEET Comprehensive Panel Today R19.7 - Diarrhea, unspecified ? Calprotectin, Stool Today R19.7 - Diarrhea, unspecified ? Fecal Fat, Qualitative Today R19.7 - Diarrhea, unspecified ? OVA+PARA w/Giardia EIA [id number] Today R19.7 - Diarrhea, unspecified ? CDIFF (PCR) Today R19.7 - Diarrhea, unspecified ? ENTERIC PATHOGEN PANEL STOOL Today K58.9 - Irritable bowel syndrome without diarrhea, R19.7 - Diarrhea, unspecified ? Stool Lactoferrin/WBC Today K58.9 - Irritable bowel syndrome without diarrhea, R19.7 - Diarrhea, unspecified ? BIRDIE + Protein Elect, Serum Today R19.7 - Diarrhea, unspecified ? Pancreatic Elastase, Fecal Today R19.7 - Diarrhea, unspecified ? I have examined the patient and the H&P has been reviewed. There are no clinical changes since date of exam.
--- NOTE | 2022-09-14 14:58 | OP.EGD_ITS ---
Patient Name: Dev Cruz Procedure Date: 09/14/2022 2:13 PM Date of : 1970 Age: 52 Procedure: Upper GI endoscopy Indications: Epigastric abdominal pain, Dyspepsia Providers: Brayden Morin DO Referring MD: Brayden Morin DO Medicines: Monitored Anesthesia Care Patient Profile: This is a 52 year old male. Refer to note in patient chart for documentation of history and physical. Patient has symptoms of chronic epigastric abdominal pain and chronic dyspepsia. Complications: No immediate complications. Procedure: Pre-Anesthesia Assessment: - Prior to the procedure, a History and Physical was performed, and patient medications and allergies were reviewed. The risks and benefits of the procedure and the sedation options and risks were discussed with the patient. All questions were answered and informed consent was obtained. Patient identification and proposed procedure were verified by the physician. Mental Status Examination: alert and oriented. Airway Examination: normal oropharyngeal airway and neck mobility. Respiratory Examination: clear to auscultation. Prophylactic Antibiotics: The patient does not require prophylactic antibiotics. Prior Anticoagulants: The patient has taken no previous anticoagulant or antiplatelet agents. ASA Grade Assessment: II - A patient with mild systemic disease. After reviewing the risks and benefits, the patient was deemed in satisfactory condition to undergo the procedure. The anesthesia plan was to use monitored anesthesia care (MAC). Immediately prior to administration of medications, the patient was re-assessed for adequacy to receive sedatives. The heart rate, respiratory rate, oxygen saturations, blood pressure, adequacy of pulmonary ventilation, and response to care were monitored throughout the procedure. The physical status of the patient was re-assessed after the procedure. After obtaining informed consent, the endoscope was passed under direct vision. Throughout the procedure, the patient's blood pressure, pulse, and oxygen saturations were monitored continuously. The colonoscope was introduced through the mouth, and advanced to the second part of duodenum. The upper GI endoscopy was accomplished without difficulty. The patient tolerated the procedure well. Scope In: 2:27:53 PM Scope Out: 2:33:07 PM Total Procedure Duration Time 0 hours 5 minutes 14 seconds Findings: The examined esophagus was normal. Patchy mild inflammation characterized by congestion (edema), erosions and erythema was found in the gastric antrum. Biopsies were taken with a cold forceps for histology. Verification of patient identification for the specimen was done. Estimated blood loss was minimal. Two non-bleeding cratered gastric ulcers with no stigmata of bleeding were found in the gastric antrum. The largest lesion was 6 mm in largest dimension. Biopsies were taken with a cold forceps for histology. Verification of patient identification for the specimen was done. Estimated blood loss was minimal. No gross lesions were noted in the second portion of the duodenum. Impression: - Normal esophagus. - Gastritis. Biopsied. - Non-bleeding gastric ulcers with no stigmata of bleeding. Biopsied. - No gross lesions in the second portion of the duodenum. Recommendation: - Discharge patient to home. - Resume previous diet. - Continue present medications. - Await pathology results. - Repeat upper endoscopy in 6 months for surveillance. Procedure Code(s): --- Professional --- 16905, Esophagogastroduodenoscopy, flexible, transoral; with biopsy, single or multiple CPT copyright 2017 [employer]. All rights reserved. The codes documented in this report are preliminary and upon kiln charger review may be revised to meet current compliance requirements. Brayden Morin DO 09/14/2022 2:57:40 PM This report has been signed electronically. Number of Addenda: 0 Note Initiated On: 09/14/2022 2:13 PM
--- NOTE | 2022-09-14 14:59 | OP.CCLET_ITS ---
09/14/2022 Jackeline Ball [facility] [address] [place] [address] Re : Upper GI endoscopy procedure for Dev Cruz Dear Dr. Ball This procedure was performed on Wednesday, September 14, 2022. My impressions and recommendations are as follows: Impressions : - Normal esophagus. - Gastritis. Biopsied. - Non-bleeding gastric ulcers with no stigmata of bleeding. Biopsied. - No gross lesions in the second portion of the duodenum. Recommendations : - Discharge patient to home. - Resume previous diet. - Continue present medications. - Await pathology results. - Repeat upper endoscopy in 6 months for surveillance. My findings are described in the full procedure note, which is enclosed. If I can be of further assistance, please feel free to contact me at . Sincerely, Brayden Morin, 09/14/2022 2:57:40 PM This report has been signed electronically.
--- NOTE | 2022-09-14 15:03 | OP.COLON_ITS ---
Patient Name: Dev Cruz Procedure Date: 09/14/2022 2:17 PM Date of : 1970 Age: 52 Procedure: Colonoscopy Indications: Clinically significant diarrhea of unexplained origin, Weight loss Providers: Brayden Morin DO Referring MD: Brayden Morin DO Medicines: Monitored Anesthesia Care Patient Profile: This is a 52 year old male. Refer to note in patient chart for documentation of history and physical. Patient has symptoms of chronic epigastric abdominal pain and chronic dyspepsia. Last Colonoscopy: none. The patient's first colonoscopy is today. Complications: No immediate complications. Procedure: Pre-Anesthesia Assessment: - Prior to the procedure, a History and Physical was performed, and patient medications and allergies were reviewed. The risks and benefits of the procedure and the sedation options and risks were discussed with the patient. All questions were answered and informed consent was obtained. Patient identification and proposed procedure were verified by the physician. Mental Status Examination: alert and oriented. Airway Examination: normal oropharyngeal airway and neck mobility. Respiratory Examination: clear to auscultation. Prophylactic Antibiotics: The patient does not require prophylactic antibiotics. Prior Anticoagulants: The patient has taken no previous anticoagulant or antiplatelet agents. ASA Grade Assessment: II - A patient with mild systemic disease. After reviewing the risks and benefits, the patient was deemed in satisfactory condition to undergo the procedure. The anesthesia plan was to use monitored anesthesia care (MAC). Immediately prior to administration of medications, the patient was re-assessed for adequacy to receive sedatives. The heart rate, respiratory rate, oxygen saturations, blood pressure, adequacy of pulmonary ventilation, and response to care were monitored throughout the procedure. The physical status of the patient was re-assessed after the procedure. After I obtained informed consent, the scope was passed under direct vision. Throughout the procedure, the patient's blood pressure, pulse, and oxygen saturations were monitored continuously. The colonoscope was introduced through the anus and advanced to the cecum, identified by appendiceal orifice and ileocecal valve. The colonoscopy was performed without difficulty. The patient tolerated the procedure well. The quality of the bowel preparation was adequate. Scope In: 2:36:44 PM Scope Withdrawal Time 0 hours 10 minutes 56 seconds Scope Out: 2:51:38 PM Total Procedure Duration Time 0 hours 14 minutes 54 seconds Findings: The perianal and digital rectal examinations were normal. Many small and large-mouthed diverticula were found in the recto-sigmoid colon and sigmoid colon. An area of mildly congested mucosa was found in the sigmoid colon, in the descending colon, at the splenic flexure and in the transverse colon. Biopsies were taken with a cold forceps for histology. Verification of patient identification for the specimen was done. Estimated blood loss was minimal. Patchy inflammation, moderate in severity and characterized by congestion (edema) was found in the terminal ileum. Biopsies were taken with a cold forceps for histology. Verification of patient identification for the specimen was done. Estimated blood loss was minimal. Impression: - Diverticulosis in the recto-sigmoid colon and in the sigmoid colon. - Congested mucosa in the sigmoid colon, in the descending colon, at the splenic flexure and in the transverse colon. Biopsied. - Ileitis. Biopsied. Recommendation: - Discharge patient to home. - Resume previous diet. - Continue present medications. - Await pathology results. - Repeat colonoscopy in 5 years for surveillance. - Return to GI office. Procedure Code(s): --- Professional --- 42530, Colonoscopy, flexible; with biopsy, single or multiple CPT copyright 2017 [employer]. All rights reserved. The codes documented in this report are preliminary and upon engineering intern review may be revised to meet current compliance requirements. Brayden Morin DO 09/14/2022 3:03:28 PM This report has been signed electronically. Number of Addenda: 0 Note Initiated On: 09/14/2022 2:17 PM
--- NOTE | 2022-09-14 15:04 | OP.CCLET_ITS ---
09/14/2022 Jackeline Ball [facility] [address] [place] [address] Re : Colonoscopy procedure for Dev Cruz Dear Dr. Ball This procedure was performed on Wednesday, September 14, 2022. My impressions and recommendations are as follows: Impressions : - Diverticulosis in the recto-sigmoid colon and in the sigmoid colon. - Congested mucosa in the sigmoid colon, in the descending colon, at the splenic flexure and in the transverse colon. Biopsied. - Ileitis. Biopsied. Recommendations : - Discharge patient to home. - Resume previous diet. - Continue present medications. - Await pathology results. - Repeat colonoscopy in 5 years for surveillance. - Return to GI office. My findings are described in the full procedure note, which is enclosed. If I can be of further assistance, please feel free to contact me at . Sincerely, Brayden Morin, 09/14/2022 3:03:28 PM This report has been signed electronically.
== END 2022-09-14 15:45 | disposition home or self-care (01) ==
LOC: EN 12:43 → AC 12:44
PROVIDERS: PCP Internal Medicine; Referring Provider Internal Medicine Gastroenterology; Visit Provider Internal Medicine Gastroenterology
PROC: 0DJD8ZZ Inspection of Lower Intestinal Tract, Via Natural or Artificial Opening Endoscopic (ICD-10-PCS; CPT 45378; principal; 2022-09-14 13:55)
DX: K25.9 Gastric ulcer, unspecified as acute or chronic, without hemorrhage or perforation (principal); F25.0 Schizoaffective disorder, bipolar type; E11.9 Type 2 diabetes mellitus without complications; Z80.0 Family history of malignant neoplasm of digestive organs; R63.4 Abnormal weight loss; Z87.891 Personal history of nicotine dependence; K29.70 Gastritis, unspecified, without bleeding; K57.30 Diverticulosis of large intestine without perforation or abscess without bleeding; G47.33 Obstructive sleep apnea (adult) (pediatric); K58.0 Irritable bowel syndrome with diarrhea
CPT/HCPCS: 43239; 45380; 82962; 88305; 88342; J7120; J2405

== ENCOUNTER → 2022-09-17 | Outpatient (CLI) | payer MEDICARE, MEDICAID, SELFPAY ==
[2022-09-17 10:25] LABS: Erythrocyte Sedimentation Rate 14 mm/hr (0-20)
[2022-09-17 10:27] LABS: Absolute Lymphocyte Count 2.44 X10^3/uL (0.83-4.51); Basophil# 0.06 X10^3/uL; Eosinophil# 0.11 X10^3/uL; Eosinophils% 1.8 % (0-5); Hematocrit 44.3 % (40-54); Hemoglobin 14.9 g/dL (13.0-16.5); Lymphocyte # 2.44 X10^3/ul (0.83-4.51); Mean Corp Hgb Conc 33.6 g/dL (32-36); Mean Corpuscular Hgb 29.4 pg (27.0-32.0); Mean Corpuscular Volume 87.5 fL (80-94); Mean Platelet Vol. 12.2 fl (6.2-12.0); Monocyte# 0.61 X10^3/uL; Monocyte% 9.8 % (0-10); NRBC Flagged by Analyzer 0 % (0-5); Neutrophil # 3.01 X10^3/uL (2.7-7.7); Neutrophil % 48.1 % (47-70); Platelet Count 163 K/mm3 (150-450); RBC Distribution Width CV 13.4 % (11.6-14.6); RBC Distribution Width SD 42.9 fl (35.1-43.9); Red Blood Count 5.06 M/mm3 (4.6-6.2); White Blood Count 6.3 K/mm3 (4.4-11.0)
[2022-09-17 10:41] LABS: ALB/GLOB Ratio 0.8 RATIO (0.9-2.4); AST(SGOT) 29 U/L (15-37); Alanine Aminotransfer ALT/SGPT 41 U/L (16-61); Albumin, Serum 3.1 g/dL (3.2-5.0); Alkaline Phosphatase 104 U/L (45-117); Anion Gap 8 (5-15); BUN 8 mg/dL (7-18); BUN/Creat Ratio 9.5 RATIO (10-20); CRP 9.78 mg/L (0.0-3.0); Calcium,Total 8.7 mg/dL (8.5-10.1); Chloride 103 mmol/L (98-107); Creatinine, Serum 0.84 mg/dL (0.70-1.30); EST Glomerular Filtration Rate 102 mL/min (>60); Est Glom Filt Rate - Afr Amer 123 mL/min (>60); Glucose 335 mg/dL (74-106); LDH 119 U/L (87-241); Potassium 3.9 mmol/L (3.5-5.1); Protein, Total 7.1 g/dL (6.4-8.2); Sodium Level 137 mmol/L (136-145)
[2022-09-20 13:07] LABS: Anti-Centromere B Ab <0.2 AI (0.0-0.9); Anti-Chromatin <0.2 AI (0.0-0.9); Anti-Jo <0.2 AI (0.0-0.9); Anti-Scleroderma-70 AB <0.2 AI (0.0-0.9); RNP Ab <0.2 AI (0.0-0.9); SJOGREN'S Anti-SS-A test < 0.2 AI (0.0-0.9); SJOGREN'S Anti-SS-B test < 0.2 AI (0.0-0.9); Smith Ab <0.2 AI (0.0-0.9)
[2022-09-20 17:07] LABS: Endomysial Antibody IgA Negative (Negative)
[2022-09-21 09:09] LABS: Albumin 3.5 g/dL (2.9-4.4); Alpha-1-Globulins 0.2 g/dL (0.0-0.4); Alpha-2-Globulins 0.9 g/dL (0.4-1.0); Cytoplasmic Ab (C-ANCA) <1:20 titer (Neg:<1:20); Gamma Globulin 1.1 g/dL (0.4-1.8); Immunoglobulin A 153 mg/dL (90-386); Immunoglobulin E 71 IU/mL (6-495); Immunoglobulin G 1073 mg/dL (603-1613); Immunoglobulin M 90 mg/dL (20-172); PROEL- TOTAL PROTEIN 6.8 g/dL (6.0-8.5)
[2022-09-21 11:13] LABS: Anti-dsDNA Ab 5 IU/mL (0-9); Immunoglobulin A 154 mg/dL (90-386); t-Transglutaminase IgA <2 U/mL (0-3)
[2022-09-21 11:19] LABS: Perinuclear Ab (P-ANCA) <1:20 titer (Neg:<1:20)
== END | disposition home or self-care (01) ==
PROVIDERS: PCP Internal Medicine; Referring Provider Internal Medicine Gastroenterology; Visit Provider Internal Medicine Gastroenterology
DX: R19.7 Diarrhea, unspecified (principal)
CPT/HCPCS: 36415; 80053; 82784; 82785; 83516; 83615; 84165; 85025; 85652; 86140; 86225; 86235; 86255; 86256; 86334

== ENCOUNTER → 2022-10-05 | Outpatient (CLI) | payer MEDICARE, MEDICAID, SELFPAY ==
--- NOTE | 2022-10-05 14:10 | CT_ITS ---
STUDY: CT MAXILLOFACIAL SINUSES REASON FOR EXAM: Male, 52 years old. Right intranasal mass. RADIATION DOSAGE (If Supplied By Facility): CTDIvol = ( 33.06 ) mGy, DLP = ( 825.58 ) mGycm TECHNIQUE: The patient was scanned in a multi detector CT scanner. High resolution axial imaging was performed without the administration of intravenous contrast material. Sagittal and coronal images were reconstructed. Individualized dose optimization techniques were used for this CT. COMPARISON: None. FINDINGS: Small benign appearing submental lymph nodes. FRONTAL SINUSES: Opacification of the frontal sinuses. ETHMOIDAL SINUSES: Opacification of the ethmoid sinuses worse on the right side with thinning of the bony septations. MAXILLARY SINUSES: There is opacification of both maxillary sinuses. There is erosive changes of the medial jose of both maxillary sinuses. There is soft tissue extension of the right maxillary sinus into the right nasal airway. SPHENOIDAL SINUSES: Opacification of the sphenoid sinus. . There is soft tissue prominence in the right nasal airway. This is suggestive of polyposis. The visualized osseous structures are normal. The visualized bilateral orbital contents are normal. CT/Sinus/Facial Bone IMPRESSION: Pansinusitis. Soft tissue prominence in the right nasal airway suggestive of polyposis. Electronically Signed: Thomas Cristina MD at 15:28 EDT ,
== END | disposition home or self-care (01) ==
LOC: CT 14:04
PROVIDERS: PCP Internal Medicine; Referring Provider Otolaryngology; Visit Provider Otolaryngology
DX: J33.9 Nasal polyp, unspecified (principal); R09.81 Nasal congestion
CPT/HCPCS: 70486

== ENCOUNTER → 2022-10-18 | Outpatient (CLI) | payer MEDICARE, SELFPAY ==
[2022-10-22 20:07] LABS: Pancreatic Elastase, Fecal 76 (>200)
[2022-10-25 03:06] LABS: Calprotectin, Stool 33 ug/g (0-120); Fats, Neutral Normal (.); Fats, Total Increased (.)
== END | disposition home or self-care (01) ==
LOC: LAB 11:18
PROVIDERS: PCP Internal Medicine; Referring Provider Internal Medicine Gastroenterology; Visit Provider Internal Medicine Gastroenterology
DX: R19.7 Diarrhea, unspecified (principal); K58.9 Irritable bowel syndrome, unspecified
CPT/HCPCS: 82653; 82705; 83630; 83993; 87177; 87209; 87329; 87493; 87506

== ENCOUNTER → 2022-11-09 | Outpatient (CLI) | payer MEDICARE, MEDICAID, SELFPAY ==
[2022-11-09 09:48] LABS: Absolute Lymphocyte Count 2.78 X10^3/uL (0.83-4.51); Absolute Neutrophil Count 2.9 X10^3/uL (2.0-7.7); Basophil# 0.05 X10^3/uL; Basophil% 0.8 % (0-1); Eosinophil# 0.11 X10^3/uL; Eosinophils% 1.7 % (0-5); Hematocrit 44.6 % (40-54); Hemoglobin 14.9 g/dL (13.0-16.5); Lymphocyte # 2.78 X10^3/ul (0.83-4.51); Lymphocyte % 42.4 % (19-41); Mean Corp Hgb Conc 33.4 g/dL (32-36); Mean Corpuscular Hgb 29.2 pg (27.0-32.0); Mean Corpuscular Volume 87.3 fL (80-94); Mean Platelet Vol. 11.7 fl (6.2-12.0); Monocyte# 0.71 X10^3/uL; Monocyte% 10.8 % (0-10); NRBC Flagged by Analyzer 0 % (0-5); Neutrophil # 2.88 X10^3/uL (2.7-7.7); Platelet Count 162 K/mm3 (150-450); RBC Distribution Width CV 13.6 % (11.6-14.6); RBC Distribution Width SD 43.3 fl (35.1-43.9); Red Blood Count 5.11 M/mm3 (4.6-6.2); White Blood Count 6.6 K/mm3 (4.4-11.0)
[2022-11-09 10:07] LABS: Vitamin D,25 Hydroxy 53.5 ng/mL
[2022-11-09 10:12] LABS: ALB/GLOB Ratio 0.8 RATIO (0.9-2.4); AST(SGOT) 31 U/L (15-37); Alanine Aminotransfer ALT/SGPT 40 U/L (16-61); Albumin, Serum 3.1 g/dL (3.2-5.0); Alkaline Phosphatase 87 U/L (45-117); Anion Gap 8 (5-15); BUN 15 mg/dL (7-18); BUN/Creat Ratio 18.5 RATIO (10-20); Calcium,Total 8.9 mg/dL (8.5-10.1); Chloride 108 mmol/L (98-107); Cholesterol 103 mg/dL (200); Creatinine, Serum 0.81 mg/dL (0.70-1.30); EST Glomerular Filtration Rate 107 mL/min (>60); Est Glom Filt Rate - Afr Amer 129 mL/min (>60); Globulin 3.9 g/dL (2.2-4.2); Glucose 136 mg/dL (74-106); High Density Lipoprotein 31 mg/dL; Potassium 4.2 mmol/L (3.5-5.1); Sodium Level 140 mmol/L (136-145); Triglycerides 143 mg/dL; Very Low Density Lipoprotein 29 mg/dL (5-40)
[2022-11-09 20:28] LABS: Hemoglobin A1c 10.5 % (3.8-5.6)
== END | disposition home or self-care (01) ==
PROVIDERS: PCP Internal Medicine; Referring Provider Internal Medicine; Visit Provider Internal Medicine
DX: F31.9 Bipolar disorder, unspecified (principal); E11.65 Type 2 diabetes mellitus with hyperglycemia; E78.00 Pure hypercholesterolemia, unspecified; I10 Essential (primary) hypertension; E66.9 Obesity, unspecified; R07.9 Chest pain, unspecified; Z13.220 Encounter for screening for lipoid disorders; E55.9 Vitamin D deficiency, unspecified
CPT/HCPCS: 36415; 80053; 80061; 82306; 83036; 85025

== ENCOUNTER 2022-12-06 08:53 | Day surgery (SDC) | payer MEDICARE, MEDICAID, SELFPAY ==
--- NOTE | 2022-11-30 12:10 | EKG12_ITS ---
Test Reason : PRE-OP Blood Pressure : / mmHG Vent. Rate : 093 BPM Atrial Rate : 093 BPM P-R Int : 162 ms QRS Dur : 088 ms QT Int : 346 ms P-R-T Axes : 033 -70 024 degrees QTc Int : 430 ms Normal sinus rhythm Left axis deviation Low voltage QRS Inferior infarct , age undetermined Abnormal ECG Confirmed by FELICIA HARVEY, JOJO ([id number]), city editor RAFI OLEA ([id number]) on 12/01/2022 12:19:23 PM Referred By: Milad Allen Confirmed By:JOJO DUARTE MD
--- NOTE | 2022-12-06 | ETH_PTH ---
PATIENT: VANESSA FUNES LOC: [facility] U#:[id number] AGE/SX: 52/M ROOM: RE12/06/[address]: Dr. Milad Allen MD : 1970 BED: DIS: 12/06/2022 SPEC #: [id number] RECD: 12/06/22 13:53 STATUS: KARY TRACIE #: [id number] RYLAN: 12/06/22 00:[address]: Milad Allen DEPT: SURGICAL PATHOLOGY RECD BY: Floyd Sapp ENTERED: 12/06/22 13:53 SP TYPE: ETH TISS OTHR DR: Dr. Jackeline Ball MD Tissues: Ethmoid sinus, NOS Procedures: Surgery Specimen Level III HEADER OPERATION: Right maxillary antrostomy with tissue removal PRE-OP DIAGNOSIS: Nasal congestion, polyp of nasal cavity, chronic pansinusitis TISSUE SUBMITTED: Right sinus contents MICROSCOPIC DIAGNOSIS Right sinus contents, curettings: Fragments of benign sinonasal polyp, inflamed. Fragments of respiratory mucosa with chronic inflammation consistent with chronic sinusitis. AM:virgen 12/07/2022 MICROSCOPIC DESCRIPTION Slides are reviewed. GROSS DESCRIPTION Received in fixative is one container labeled with the patient's name and designated right sinus contents. The specimen consists of multiple irregular fragments of avendaño-red soft tissue that in aggregate measure 5.0 x 5.0 x 2.0 cm. The specimen is totally submitted in two cassettes. / AM:virgen 12/06/2022 TC:3 CPT: 90683
[2022-12-06] MEDS: Oxymetazoline 0.05% 1 SPRAY SPRAY.BTL 3 SPRAY NASAL (09:57)
[2022-12-06] MEDS: Lactated Ringers 1,000 ML 15 ML IV (09:58)
[2022-12-06 10:00] VITALS: BP 112/70; PULSE 75; RESP 18; TEMP 36.4; O2SAT 96; BMI 47.2
[2022-12-06 10:07] LABS: Bedside Glucose 147 mg/dL (74-106)
--- NOTE | 2022-12-06 10:31 | PCM.DC.SUM ---
Providers Primary Care Physician: Dr. Jackeline Ball MD Reason For Visit: ENDOSCOPIC INTRANASAL ETHMOID, MAX, ANTROS Medications at Discharge Home Medications lisinopril 5 mg tablet (Prinivil) 5 mg PO DAILY BLOOD PRESSURE 12/31/16 multivitamin (Daily Multiple tablet) 1 ea PO DAILY supplement 12/31/16 oxybutynin chloride 5 mg tablet 5 mg PO DAILY OVERACTIVE BLADDER 12/31/16 potassium chloride 10 mEq tablet,extended release(part/cryst) 20 meq PO DAILY SUPPLEMENT 12/31/16 metformin 1,000 mg tablet 1,000 mg PO BID DIABETES 03/28/18 gabapentin 600 mg tablet 600 mg PO BID NERVE PAIN 10/28/18 montelukast 10 mg tablet 10 mg PO DAILY 10/28/18 divalproex 500 mg tablet,delayed release 1,000 mg PO BID MENTAL HEALTH 06/30/22 risperidone microspheres 25 mg/2 mL intramuscular susp,ext release 25 mg IM Q14D BIPOLAR 06/30/22 lancets (Empower MicrosystemsTouch UltraSoft Lancets) #100 ea 07/21/22 xzurgf-eogymzrs-jwlbiwe 36,000-114,000-180,000 unit capsule,delay rel (Creon) See Rx Instructions PO .COMPLEX #320 caps 10/25/22 blood sugar diagnostic (OneTouch Ultra Test strips) #100 ea 11/03/22 colestipol 1 gram tablet 1 g PO BID HLD 11/29/22 dapagliflozin propanediol 10 mg tablet (Farxiga) 10 mg PO DAILY DM 11/29/22 insulin glargine 100 unit/mL (3 mL) subcutaneous pen (Lantus Solostar U-100 Insulin) 75 unit subcut QPM DM 11/29/22 insulin lispro 100 unit/mL subcutaneous pen (Humalog KwikPen (U-100) Insulin) 10 unit subcut BID DM 11/29/22 furosemide 40 mg tablet 40 mg PO BID WATER PILL #180 tabs 12/02/22 simvastatin 40 mg tablet 40 mg PO QHS CHOLESTEROL #90 tabs 12/02/22 Weight / BMI Weight Weight: 149.232 kg Body Mass Index (BMI) 47.2 ABG / Lab / Microbiology Data Laboratory: Laboratory Results - last 24 hr 12/06/22 09:44: POC Glucose 147 H D/C Instructions Discharge Diet: No restrictions Additional Instructions: No nose blowing. Start irrigation with saline tomorrow (12/07/22). Irrigate 4x/day Please Follow Up With: Milad Allen MD When: next week Meaningful Use Info Meaningful Use Diagnoses (Choose all that apply): None applicable Discharge Plan Admission Attending Provider: Milad Allen Primary Care Provider: Jackeline Ball Discharge Orders/Prescriptions Prescriptions: No Action risperidone microspheres 25 mg/2 mL suspension,extended rel recon 25 mg IM Q14D multivitamin [Daily Multiple] 1 EACH tablet 1 ea PO DAILY lisinopril [Prinivil] 5 MG tablet 5 mg PO DAILY oxybutynin chloride 5 MG tablet 5 mg PO DAILY potassium chloride 10 MEQ tablet 20 meq PO DAILY metformin 1,000 MG tablet 1,000 mg PO BID divalproex 500 mg tablet,delayed release (DR/EC) 1,000 mg PO BID gabapentin 600 MG tablet 600 mg PO BID montelukast 10 MG tablet 10 mg PO DAILY colestipol 1 gram tablet 1 g PO BID insulin lispro [Humalog KwikPen Insulin] 100 unit/mL insulin pen 10 unit subcut BID insulin glargine [Lantus Solostar U-100 Insulin] 100 unit/mL (3 mL) insulin pen 75 unit subcut QPM Rx Instructions: 35units night before surgery Farxiga 10 mg tablet 10 mg PO DAILY (DME) lancets [OneTouch UltraSoft Lancets] Misc See Rx Instructions .Route Qty: 100 5RF Rx Instructions: BID and prn Creon 36,000-114,000- 180,000 unit capsule,delayed release(DR/EC) See Rx Instructions PO .COMPLEX Qty: 320 3RF Rx Instructions: take 1-2 with snacks and 2-3 with meals EPIK86.81 (DME) OneTouch Ultra Test Strip See Rx Instructions .Route Qty: 100 10RF Rx Instructions: 4x daily and PRN furosemide 40 mg tablet 40 mg PO BID Qty: 180 3RF simvastatin 40 mg tablet 40 mg PO QHS Qty: 90 3RF Referrals / Follow Up: Jackeline Ball MD [Primary Care Provider] - Disposition Disposition (needs filled in before D/C Order can be placed): Home, Self Care
--- NOTE | 2022-12-06 10:32 | PCM.OPRPT ---
Report of Operation Date of Procedure: 12/06/22 Pre-Operative Diagnosis: chronic sinusitis with polyposis Post-Operative Diagnosis: same Surgery/Procedure Performed:: Right maxillary antrostomy with tissue removal Right anterior ethmoidectomy use of navigation Surgeon: Milad Allen Type of Anesthesia: General Anesthesiologist: Daniel Mcclellan Estimated Blood Loss (mL): minimal Description of Procedure: The patient was taken to the operating room on 12/06/2022. The patient was placed in the supine position on the operating table. The patient was given sufficient general endotracheal anesthesia. The head of bed was elevated 30 degrees. The navigation system was placed and verified per protocol and found to be accurate. 0 and 30 degrees rigid nasal endoscopes were used throughout the entire case. The middle turbinate uncinate process and polyps were injected with 1% lidocaine with epinephrine bilaterally. The right middle turbinate was medialized with a [place] elevator. A very large polyp was coming out of the nasal vestibule. This was removed with a sinus shaver and Adriano-Cut forceps. The polyp was then chased to the right middle meatus. There appeared to be polyp emanating from the accessory os. This was extending down into the nasopharynx. This was removed with a microdebrider. The polyp was then chased into the accessory os. At this point there was significant bleeding. I used suction cautery at multiple areas to control some of this bleeding. Afrin pledgets were also used. Next polyp was removed from the middle meatus using a sinus shaver. I Used a backbiter to connect the accessory os and the natural os creating an antrostomy. The uncinate was taken down using a sinus shaver. Significant bleeding was again again encountered. This was controlled with Afrin pledgets and suction cautery. Next I used a microdebrider to remove polyp from the maxillary sinus. This also caused significant bleeding and was controlled with Afrin pledgets. Ethmoid cells were verified for relation to the skull base and orbit prior to being entered with the navigation system. Next, an anterior ethmoidectomy was performed with a curette and microdebrider. Hemostasis with suction cautery. At this point I elected to stop the operation secondary to blood loss. Blood loss at this point was approximately 100 mL. Hemostasis was ensured with Afrin pledgets and Mora powder. Once hemostasis was achieved all instrumentation was removed. The patient was then awoken and brought to the recovery room in stable condition blood loss approximately 100 cc, replacement none. Sponge, needle, instrument count were correct at the end of the procedure.
[2022-12-06] MEDS: Oxymetazoline 0.05% 1 SPRAY SPRAY.BTL 15 SPRAY (11:00)
[2022-12-06] MEDS: Lidocaine 1% /Epi 1:100 (20ml) 20 ML Vial (11:05)
[2022-12-06 12:27] VITALS: BP 112/70; BP 119/70; PULSE 80; RESP 18; TEMP 36.4; O2SAT 96
[2022-12-06 12:30] VITALS: BP 112/70; BP 119/70; PULSE 86; RESP 20; O2SAT 95
[2022-12-06 12:45] VITALS: BP 112/70; BP 123/70; PULSE 80; RESP 18; O2SAT 93
[2022-12-06 12:55] VITALS: BP 112/70; BP 122/58; PULSE 81; RESP 18; TEMP 36.1; O2SAT 94
[2022-12-06 13:18] LABS: Bedside Glucose 162 mg/dL (74-106)
[2022-12-06 13:25] VITALS: BP 112/70
== END 2022-12-06 13:39 | disposition home or self-care (01) ==
LOC: SDC 08:53 → AC 09:29
PROVIDERS: PCP Internal Medicine; Referring Provider Otolaryngology; Visit Provider Otolaryngology
PROC: (CPT 30110; principal; 2022-12-06 10:00)
DX: J32.4 Chronic pansinusitis (principal); F31.9 Bipolar disorder, unspecified; E11.9 Type 2 diabetes mellitus without complications; Z79.4 Long term (current) use of insulin; R09.81 Nasal congestion; J33.0 Polyp of nasal cavity; J30.89 Other allergic rhinitis; I10 Essential (primary) hypertension; F41.9 Anxiety disorder, unspecified; Z87.891 Personal history of nicotine dependence; G47.30 Sleep apnea, unspecified; Z99.89 Dependence on other enabling machines and devices
CPT/HCPCS: 30110; 31267; 00160; 82962; 88304; 88305; 93005; J7120; J2405

== ENCOUNTER → 2023-02-03 | Outpatient (CLI) | payer MEDICARE, MEDICAID, SELFPAY ==
[2023-02-03 16:07] LABS: ALB/GLOB Ratio 0.8 RATIO (0.9-2.4); AST(SGOT) 39 U/L (15-37); Alanine Aminotransfer ALT/SGPT 41 U/L (16-61); Albumin, Serum 3.3 g/dL (3.2-5.0); Alkaline Phosphatase 108 U/L (45-117); Anion Gap 9 (5-15); BUN 18 mg/dL (7-18); Calcium,Total 9.4 mg/dL (8.5-10.1); Chloride 99 mmol/L (98-107); EST Glomerular Filtration Rate 84 mL/min (>60); Est Glom Filt Rate - Afr Amer 102 mL/min (>60); Globulin 4.3 g/dL (2.2-4.2); Glucose 276 mg/dL (74-106); Potassium 4.3 mmol/L (3.5-5.1); Protein, Total 7.6 g/dL (6.4-8.2); Sodium Level 135 mmol/L (136-145)
== END | disposition home or self-care (01) ==
LOC: LAB 14:36
PROVIDERS: PCP Internal Medicine; Referring Provider Internal Medicine; Visit Provider Internal Medicine
DX: R73.9 Hyperglycemia, unspecified (principal); F31.9 Bipolar disorder, unspecified; E78.00 Pure hypercholesterolemia, unspecified; I10 Essential (primary) hypertension; E66.9 Obesity, unspecified
CPT/HCPCS: 36415; 80053; 83036

== ENCOUNTER → 2023-05-17 | Outpatient (CLI) | payer MEDICARE, MEDICAID, SELFPAY ==
[2023-05-17 10:39] LABS: Platelet Count 204 K/mm3 (150-450)
[2023-05-17 10:56] LABS: Valproic Acid (Depakene) Level 81 ug/mL (50-100)
[2023-05-17 11:03] LABS: AST(SGOT) 20 U/L (15-37); Alanine Aminotransfer ALT/SGPT 30 U/L (16-61)
== END | disposition home or self-care (01) ==
PROVIDERS: PCP Internal Medicine; Visit Provider Psychiatry & Neurology Psychiatry
DX: Z79.899 Other long term (current) drug therapy (principal); F19.10 Other psychoactive substance abuse, uncomplicated; R53.83 Other fatigue
CPT/HCPCS: 36415; 80164; 84450; 84460; 85049

== ENCOUNTER → 2023-05-19 | Outpatient (CLI) | payer MEDICARE, MEDICAID, SELFPAY ==
[2023-05-19 14:22] LABS: Absolute Lymphocyte Count 2.11 X10^3/uL (0.83-4.51); Absolute Neutrophil Count 4.2 X10^3/uL (2.0-7.7); Basophil# 0.07 X10^3/uL; Eosinophil# 0.11 X10^3/uL; Eosinophils% 1.5 % (0-5); Hematocrit 47.4 % (40-54); Hemoglobin 15.3 g/dL (13.0-16.5); Lymphocyte # 2.11 X10^3/ul (0.83-4.51); Lymphocyte % 29.1 % (19-41); Mean Corp Hgb Conc 32.3 g/dL (32-36); Mean Corpuscular Hgb 28.3 pg (27.0-32.0); Mean Corpuscular Volume 87.8 fL (80-94); Mean Platelet Vol. 11.4 fl (6.2-12.0); Monocyte# 0.74 X10^3/uL; Monocyte% 10.2 % (0-10); NRBC Flagged by Analyzer 0 % (0-5); Neutrophil # 4.19 X10^3/uL (2.7-7.7); Neutrophil % 57.9 % (47-70); Platelet Count 220 K/mm3 (150-450); RBC Distribution Width CV 13.9 % (11.6-14.6); RBC Distribution Width SD 44.5 fl (35.1-43.9); White Blood Count 7.2 K/mm3 (4.4-11.0)
[2023-05-19 14:54] LABS: Vitamin D,25 Hydroxy 28.8 ng/mL
[2023-05-19 15:00] LABS: ALB/GLOB Ratio 0.7 RATIO (0.9-2.4); AST(SGOT) 25 U/L (15-37); Alanine Aminotransfer ALT/SGPT 33 U/L (16-61); Albumin, Serum 3.1 g/dL (3.2-5.0); Alkaline Phosphatase 97 U/L (45-117); Anion Gap 6 (5-15); BUN 17 mg/dL (7-18); BUN/Creat Ratio 16.5 RATIO (10-20); Calcium,Total 9.2 mg/dL (8.5-10.1); Chloride 103 mmol/L (98-107); Creatinine, Serum 1.03 mg/dL (0.70-1.30); EST Glomerular Filtration Rate 81 mL/min (>60); Est Glom Filt Rate - Afr Amer 98 mL/min (>60); Globulin 4.3 g/dL (2.2-4.2); Glucose 246 mg/dL (74-106); Potassium 4.3 mmol/L (3.5-5.1); Protein, Total 7.4 g/dL (6.4-8.2); Sodium Level 136 mmol/L (136-145); Thyroid Stim Hormone (TSH) 1.36 uIU/mL (0.358-3.74)
[2023-05-19 15:17] LABS: Hemoglobin A1c 8.1 % (3.8-5.6)
== END | disposition home or self-care (01) ==
LOC: LAB 14:03
PROVIDERS: PCP Internal Medicine; Referring Provider Internal Medicine; Visit Provider Internal Medicine
DX: E11.9 Type 2 diabetes mellitus without complications (principal); I10 Essential (primary) hypertension; E78.00 Pure hypercholesterolemia, unspecified; E66.9 Obesity, unspecified; R07.9 Chest pain, unspecified; E55.9 Vitamin D deficiency, unspecified
CPT/HCPCS: 36415; 80053; 82306; 83036; 84443; 85025

== ENCOUNTER → 2023-07-28 | Outpatient (CLI) | payer MEDICARE, MEDICAID, SELFPAY ==
[2023-07-28 14:32] LABS: Absolute Lymphocyte Count 2.67 X10^3/uL (0.83-4.51); Absolute Neutrophil Count 5.1 X10^3/uL (2.0-7.7); Basophil# 0.06 X10^3/uL; Basophil% 0.7 % (0-1); Eosinophil# 0.09 X10^3/uL; Hematocrit 45.9 % (40-54); Hemoglobin 15.3 g/dL (13.0-16.5); Lymphocyte # 2.67 X10^3/ul (0.83-4.51); Lymphocyte % 30.4 % (19-41); Mean Corp Hgb Conc 33.3 g/dL (32-36); Mean Corpuscular Hgb 28.3 pg (27.0-32.0); Mean Platelet Vol. 11.7 fl (6.2-12.0); Monocyte# 0.85 X10^3/uL; Monocyte% 9.7 % (0-10); NRBC Flagged by Analyzer 0 % (0-5); Neutrophil # 5.08 X10^3/uL (2.7-7.7); Platelet Count 202 K/mm3 (150-450); RBC Distribution Width CV 13.7 % (11.6-14.6); RBC Distribution Width SD 42.2 fl (35.1-43.9); White Blood Count 8.8 K/mm3 (4.4-11.0)
[2023-07-28 15:02] LABS: Vitamin D,25 Hydroxy 33.3 ng/mL
[2023-07-28 15:11] LABS: ALB/GLOB Ratio 0.8 RATIO (0.9-2.4); AST(SGOT) 27 U/L (15-37); Alanine Aminotransfer ALT/SGPT 43 U/L (16-61); Albumin, Serum 3.2 g/dL (3.2-5.0); Alkaline Phosphatase 116 U/L (45-117); Anion Gap 11 (5-15); BUN 12 mg/dL (7-18); BUN/Creat Ratio 13.4 RATIO (10-20); Chloride 102 mmol/L (98-107); EST Glomerular Filtration Rate 95 mL/min (>60); Est Glom Filt Rate - Afr Amer 115 mL/min (>60); Globulin 4.1 g/dL (2.2-4.2); Glucose 336 mg/dL (74-106); Magnesium 1.7 mg/dL (1.6-2.6); PSA,Total - Annual Screen 0.82 ng/mL (0.00-4.00); Potassium 4.2 mmol/L (3.5-5.1); Protein, Total 7.3 g/dL (6.4-8.2); Sodium Level 137 mmol/L (136-145); Thyroid Stim Hormone (TSH) 1.14 uIU/mL (0.358-3.74)
[2023-07-29 10:05] LABS: Hemoglobin A1c 10.9 % (3.8-5.6)
== END | disposition home or self-care (01) ==
PROVIDERS: PCP Internal Medicine; Referring Provider Internal Medicine; Visit Provider Internal Medicine
DX: E55.9 Vitamin D deficiency, unspecified (principal); F31.9 Bipolar disorder, unspecified; E11.9 Type 2 diabetes mellitus without complications; R35.0 Frequency of micturition; E78.00 Pure hypercholesterolemia, unspecified; I10 Essential (primary) hypertension; E66.9 Obesity, unspecified; Z12.5 Encounter for screening for malignant neoplasm of prostate; R07.9 Chest pain, unspecified
CPT/HCPCS: 36415; 80053; 82306; 83036; 83735; 84153; 84443; 85025; G0103

== ENCOUNTER → 2023-09-15 | Outpatient (CLI) | payer MEDICARE, MEDICAID, SELFPAY ==
--- NOTE | 2023-09-15 09:28 | US_ITS ---
STUDY: ABDOMINAL ULTRASOUND - RIGHT UPPER QUADRANT; ELASTOGRAPHY REASON FOR VISIT: Male, 53 years old. Fatty infiltration of the liver. TECHNIQUE: Ultrasound evaluation of the right upper quadrant was performed with real-time and static bray-scale imaging. Point quantification shear wave elastography was performed ([facility]). TECHNICAL QUALITY: Adequate. COMPARISON: None. FINDINGS: Liver: The liver is enlarged and measures 20 5. cm. There is increased echogenicity consistent with fatty infiltration. The bile ducts are within normal limits. There is hepatic color flow. The direction of portal flow is hepatopetal. There is no demonstrated mass lesion. Median liver stiffness measured 10.7 kPa. Gallbladder: Normal distended gallbladder. The gallbladder wall measures 2.7 mm. There is a negative sonographic Morrison''s sign. There is no pericholecystic fluid. There are no gallstones. Common Bile Duct (C.B.D.): The common bile duct measures 3. mm. Pancreas: There is normal echogenicity of the visualized pancreas. There is no demonstrated pancreatic mass or cyst. Right Kidney: Normal size of the right kidney. The right kidney measures 14.3 cm x 6.7 cm x 5.5 cm. Normal renal cortex. The right cortex measures 1.7 cm. There is no demonstrated renal mass or cyst. There is no right hydronephrosis. There are 2 nonobstructive calculi in the lower pole calyx of the right kidney. The largest calculus measures 4 mm x 3 mm x 3 mm. US/ABD Limited w/ Elastography IMPRESSION: 1. Liver stiffness measures 10.7 kPa compatible with F2-F3 (Mild to moderate liver fibrosis) Metavir score. Electronically Signed: Thomas Cristina MD at 10:49 EDT ,
== END | disposition home or self-care (01) ==
PROVIDERS: PCP Internal Medicine; Referring Provider Internal Medicine Gastroenterology; Visit Provider Internal Medicine Gastroenterology
DX: K50.90 Crohn's disease, unspecified, without complications (principal); E11.9 Type 2 diabetes mellitus without complications
CPT/HCPCS: 76705; 76981

== ENCOUNTER → 2023-11-04 | Outpatient (CLI) | payer MEDICARE, MEDICAID, SELFPAY ==
[2023-11-04 13:27] LABS: Hemoglobin A1c 11.6 % (3.8-5.6)
[2023-11-04 13:34] LABS: ALB/GLOB Ratio 0.8 RATIO (0.9-2.4); AST(SGOT) 16 U/L (15-37); Alanine Aminotransfer ALT/SGPT 23 U/L (16-61); Albumin, Serum 3.1 g/dL (3.2-5.0); Alkaline Phosphatase 116 U/L (45-117); Anion Gap 9 (5-15); BUN 14 mg/dL (7-18); BUN/Creat Ratio 14.8 RATIO (10-20); Calcium,Total 9.1 mg/dL (8.5-10.1); Chloride 97 mmol/L (98-107); Creatinine, Serum 0.94 mg/dL (0.70-1.30); EST Glomerular Filtration Rate 89 mL/min (>60); Est Glom Filt Rate - Afr Amer 108 mL/min (>60); Globulin 3.9 g/dL (2.2-4.2); Glucose 448 mg/dL (74-106); Magnesium 1.8 mg/dL (1.6-2.6); Potassium 4.2 mmol/L (3.5-5.1); Sodium Level 132 mmol/L (136-145)
== END | disposition home or self-care (01) ==
LOC: LAB 12:32
PROVIDERS: PCP Internal Medicine; Referring Provider Internal Medicine; Visit Provider Internal Medicine
DX: E11.9 Type 2 diabetes mellitus without complications (principal); E78.00 Pure hypercholesterolemia, unspecified; I10 Essential (primary) hypertension; E66.9 Obesity, unspecified
CPT/HCPCS: 36415; 80053; 83036; 83735

== ENCOUNTER → 2023-12-15 | Outpatient (CLI) | payer MEDICARE, MEDICAID, SELFPAY ==
[2023-12-15 15:23] LABS: Hematocrit 45.1 % (40-54); Hemoglobin 15.1 g/dL (13.0-16.5); Mean Corp Hgb Conc 33.5 g/dL (32-36); Mean Corpuscular Hgb 29.2 pg (27.0-32.0); Mean Corpuscular Volume 87.1 fL (80-94); Mean Platelet Vol. 11.9 fl (6.2-12.0); Platelet Count 177 K/mm3 (150-450); RBC Distribution Width CV 13.2 % (11.6-14.6); RBC Distribution Width SD 42.3 fl (35.1-43.9); Red Blood Count 5.18 M/mm3 (4.6-6.2); White Blood Count 6.8 K/mm3 (4.4-11.0)
[2023-12-15 15:55] LABS: Valproic Acid (Depakene) Level 90 ug/mL (50-100)
[2023-12-15 16:06] LABS: ALB/GLOB Ratio 0.8 RATIO (0.9-2.4); AST(SGOT) 6 U/L (15-37); Alanine Aminotransfer ALT/SGPT 17 U/L (16-61); Albumin, Serum 3.1 g/dL (3.2-5.0); Alkaline Phosphatase 123 U/L (45-117); Anion Gap 3 (5-15); BUN 13 mg/dL (7-18); BUN/Creat Ratio 12.1 RATIO (10-20); Calcium,Total 9.4 mg/dL (8.5-10.1); Chloride 100 mmol/L (98-107); Creatinine, Serum 1.07 mg/dL (0.70-1.30); EST Glomerular Filtration Rate 77 mL/min (>60); Est Glom Filt Rate - Afr Amer 93 mL/min (>60); Globulin 4.1 g/dL (2.2-4.2); Glucose 469 mg/dL (74-106); Potassium 4.3 mmol/L (3.5-5.1); Prolactin 19.2 ng/mL; Protein, Total 7.2 g/dL (6.4-8.2); Sodium Level 127 mmol/L (136-145)
== END | disposition home or self-care (01) ==
PROVIDERS: PCP Internal Medicine; Referring Provider Psychiatry & Neurology Psychiatry; Visit Provider Psychiatry & Neurology Psychiatry
DX: Z79.899 Other long term (current) drug therapy (principal)
CPT/HCPCS: 36415; 80053; 80164; 82140; 84146; 85027

== ENCOUNTER → 2024-04-30 | Outpatient (CLI) | payer MEDICARE, MEDICAID, SELFPAY ==
[2024-04-30 15:56] LABS: Hematocrit 43.3 % (40-54); Hemoglobin 14.8 g/dL (13.0-16.5); Mean Corp Hgb Conc 34.2 g/dL (32-36); Mean Corpuscular Hgb 29.2 pg (27.0-32.0); Mean Corpuscular Volume 85.6 fL (80-94); Mean Platelet Vol. 11.9 fl (6.2-12.0); Platelet Count 206 K/mm3 (150-450); RBC Distribution Width CV 13.1 % (11.6-14.6); Red Blood Count 5.06 M/mm3 (4.6-6.2); White Blood Count 7.7 K/mm3 (4.4-11.0)
[2024-04-30 16:21] LABS: Valproic Acid (Depakene) Level 78 ug/mL (50-100)
[2024-04-30 16:26] LABS: ALB/GLOB Ratio 0.8 RATIO (0.9-2.4); AST(SGOT) 30 U/L (15-37); Alanine Aminotransfer ALT/SGPT 40 U/L (16-61); Albumin, Serum 3.1 g/dL (3.2-5.0); Alkaline Phosphatase 94 U/L (45-117); Anion Gap 10 (5-15); BUN 10 mg/dL (7-18); Chloride 101 mmol/L (98-107); Creatinine, Serum 0.83 mg/dL (0.70-1.30); EST Glomerular Filtration Rate 103 mL/min (>60); Est Glom Filt Rate - Afr Amer 125 mL/min (>60); Globulin 4.1 g/dL (2.2-4.2); Glucose 234 mg/dL (74-106); Potassium 3.9 mmol/L (3.5-5.1); Protein, Total 7.2 g/dL (6.4-8.2); Sodium Level 136 mmol/L (136-145)
[2024-04-30 17:08] LABS: Hemoglobin A1c 9.5 % (3.8-5.6)
[2024-05-02 04:09] LABS: PROLACTIN 23.4 ng/mL (3.6-25.2)
== END | disposition home or self-care (01) ==
PROVIDERS: PCP Internal Medicine; Referring Provider Internal Medicine; Visit Provider Psychiatry & Neurology Psychiatry
DX: Z79.899 Other long term (current) drug therapy (principal)
CPT/HCPCS: 36415; 80053; 80164; 82140; 83036; 84146; 85027

== ENCOUNTER → 2024-07-16 | Outpatient (CLI) | payer MEDICARE, MEDICAID, SELFPAY ==
[2024-07-16 17:24] LABS: Absolute Lymphocyte Count 2.68 X10^3/uL (0.83-4.51); Absolute Neutrophil Count 3.1 X10^3/uL (2.0-7.7); Basophil# 0.04 X10^3/uL; Basophil% 0.6 % (0-1); Eosinophil# 0.11 X10^3/uL; Eosinophils% 1.6 % (0-5); Hematocrit 43.7 % (40-54); Hemoglobin 14.4 g/dL (13.0-16.5); Lymphocyte # 2.68 X10^3/ul (0.83-4.51); Lymphocyte % 38.8 % (19-41); Mean Corpuscular Hgb 28.1 pg (27.0-32.0); Mean Corpuscular Volume 85.2 fL (80-94); Mean Platelet Vol. 12.4 fl (6.2-12.0); Monocyte# 0.96 X10^3/uL; Monocyte% 13.9 % (0-10); NRBC Flagged by Analyzer 0 % (0-5); Neutrophil # 3.11 X10^3/uL (2.7-7.7); Platelet Count 180 K/mm3 (150-450); RBC Distribution Width SD 40.3 fl (35.1-43.9); Red Blood Count 5.13 M/mm3 (4.6-6.2); White Blood Count 6.9 K/mm3 (4.4-11.0)
[2024-07-16 17:53] LABS: ALB/GLOB Ratio 0.8 RATIO (0.9-2.4); AST(SGOT) 23 U/L (15-37); Alanine Aminotransfer ALT/SGPT 36 U/L (16-61); Albumin, Serum 3.2 g/dL (3.2-5.0); Alkaline Phosphatase 100 U/L (45-117); Anion Gap 9 (5-15); BUN 11 mg/dL (7-18); BUN/Creat Ratio 12.3 RATIO (10-20); Calcium,Total 9.1 mg/dL (8.5-10.1); Chloride 103 mmol/L (98-107); Creatinine, Serum 0.89 mg/dL (0.70-1.30); EST Glomerular Filtration Rate 95 mL/min (>60); Est Glom Filt Rate - Afr Amer 115 mL/min (>60); Globulin 4.2 g/dL (2.2-4.2); Glucose 184 mg/dL (74-106); Protein, Total 7.4 g/dL (6.4-8.2); Sodium Level 137 mmol/L (136-145)
[2024-07-16 18:30] LABS: Hepatitis B Surface Antibody Non-Reactive; Hepatitis B Surface Antigen Non-Reactive (Nonreactive); Hepatitis C Antibody Non-Reactive (Nonreactive)
[2024-07-18 05:07] LABS: Hepatitis A AB, Total Negative (Negative); Hepatitis B Core Ab Total Negative (Negative)
== END | disposition home or self-care (01) ==
LOC: LAB 16:45
PROVIDERS: PCP Internal Medicine; Referring Provider Nurse Practitioner Acute Care; Visit Provider Nurse Practitioner Acute Care
DX: K75.81 Nonalcoholic steatohepatitis (NASH) (principal)
CPT/HCPCS: 36415; 80053; 85025; 86704; 86706; 86708; 86803; 87340

== ENCOUNTER → 2024-07-19 | Outpatient (CLI) | payer MEDICARE, MEDICAID, SELFPAY ==
--- NOTE | 2024-07-19 10:26 | US_ITS ---
PROCEDURE: ABDOMEN LIMITED REASON FOR EXAM: MASLD COMPARISON: 09/15/2023 FINDINGS: Liver: Echogenic. Right hepatic lobe measures 20.0 cm. Gallbladder: No stones, sludge, wall thickening or sonographic Morrison's sign. Common bile duct: Normal measuring 2.5 mm. Pancreas: Visualized portions are sonographically unremarkable. Right kidney measures 14.4 x 6.0 by 6.0 cm. Renal cortex measures 1.4 cm. Calculus within the midpole measures 0.4 x 0.4 x 0.3 cm. No hydronephrosis of the right kidney. US/Abdomen Limited IMPRESSION: 1. Hepatomegaly, with fatty infiltration. 2. No gallstones are identified. CBD measures 2.5 mm. 3. Nonobstructing calculus within the midpole of the right kidney measuring 0.4 cm. No hydronephrosis of the right kidney. Reading Location: [facility]
== END | disposition home or self-care (01) ==
LOC: US 10:26
PROVIDERS: PCP Internal Medicine; Referring Provider Nurse Practitioner Acute Care; Visit Provider Nurse Practitioner Acute Care
DX: K75.81 Nonalcoholic steatohepatitis (NASH) (principal)
CPT/HCPCS: 76705

== ENCOUNTER → 2024-08-07 | Outpatient (CLI) | payer MEDICARE, MEDICAID, SELFPAY ==
[2024-08-07 16:58] LABS: ALB/GLOB Ratio 0.8 RATIO (0.9-2.4); AST(SGOT) 20 U/L (15-37); Alanine Aminotransfer ALT/SGPT 26 U/L (16-61); Albumin, Serum 3.1 g/dL (3.2-5.0); Alkaline Phosphatase 101 U/L (45-117); Anion Gap 10 (5-15); BUN 12 mg/dL (7-18); BUN/Creat Ratio 15.6 RATIO (10-20); Calcium,Total 9.3 mg/dL (8.5-10.1); Chloride 101 mmol/L (98-107); Creatinine, Serum 0.77 mg/dL (0.70-1.30); EST Glomerular Filtration Rate 113 mL/min (>60); Est Glom Filt Rate - Afr Amer 136 mL/min (>60); Globulin 4.1 g/dL (2.2-4.2); Glucose 233 mg/dL (74-106); Potassium 3.9 mmol/L (3.5-5.1); Protein, Total 7.2 g/dL (6.4-8.2); Sodium Level 138 mmol/L (136-145)
[2024-08-07 17:04] LABS: Hemoglobin A1c 8.6 % (3.8-5.6)
== END | disposition home or self-care (01) ==
LOC: LAB 15:33
PROVIDERS: PCP Internal Medicine; Referring Provider Internal Medicine; Visit Provider Internal Medicine
DX: E11.9 Type 2 diabetes mellitus without complications (principal); K75.81 Nonalcoholic steatohepatitis (NASH)
CPT/HCPCS: 36415; 80053; 83036

== ENCOUNTER → 2025-01-25 | Outpatient (CLI) | payer MEDICARE, MEDICAID, SELFPAY ==
[2025-01-25 11:39] LABS: Hematocrit 42.0 % (40-54); Hemoglobin 14.1 g/dL (13.0-16.5); Immature Granulocytes Count 0.020 X10^3/uL (0.0-0.0); Mean Corp Hgb Conc 33.6 g/dL (32-36); Mean Corpuscular Volume 86.4 fL (80-94); Mean Platelet Vol. 11.8 fl (6.2-12.0); NRBC Flagged by Analyzer 0 % (0-5); Platelet Count 223 K/mm3 (150-450); RBC Distribution Width CV 14.0 % (11.6-14.6); RBC Distribution Width SD 44.1 fl (35.1-43.9); Red Blood Count 4.86 M/mm3 (4.6-6.2); White Blood Count 8.3 K/mm3 (4.4-11.0)
[2025-01-25 12:50] LABS: AST(SGOT) 23 U/L (<=37); Alanine Aminotransfer ALT/SGPT 22 U/L (<=46); Albumin, Serum 3.6 g/dL (3.5-5.0); Alkaline Phosphatase 84 U/L (40-129); Anion Gap 14 (5-15); BUN 13 mg/dL (4-19); BUN/Creat Ratio 16.9 RATIO (10-20); Calcium,Total 9.1 mg/dL (7.6-11.0); Carbon Dioxide 21.0 mmol/L (21.0-32.0); Chloride 103 mmol/L (98-108); Globulin 3.5 g/dL (2.2-4.2); Glucose 145 mg/dL (70-99); Potassium 3.8 mmol/L (3.3-5.1)
[2025-01-25 13:48] LABS: Cholesterol 132 mg/dL (<=200); Low Density Lipoprotein Calc. 62 mg/dL; Magnesium 1.9 mg/dL (1.5-2.2); Triglycerides 199 mg/dL; Very Low Density Lipoprotein 40 mg/dL (5-40); Vitamin D,25 Hydroxy 32.6 ng/mL (30-100); cholesterol:hdl ratio screen 4.34
== END | disposition home or self-care (01) ==
LOC: LAB 10:35
PROVIDERS: PCP Internal Medicine; Referring Provider Student in an Organized Health Care Education/Training Program; Visit Provider Student in an Organized Health Care Education/Training Program
DX: K76.0 Fatty (change of) liver, not elsewhere classified (principal); E11.9 Type 2 diabetes mellitus without complications; E78.00 Pure hypercholesterolemia, unspecified; Z13.220 Encounter for screening for lipoid disorders; I10 Essential (primary) hypertension; E55.9 Vitamin D deficiency, unspecified
CPT/HCPCS: 36415; 80053; 80061; 82306; 83036; 83735; 85025

== ENCOUNTER → 2025-02-13 | Outpatient (CLI) | payer MEDICARE, MEDICAID, SELFPAY ==
--- NOTE | 2025-02-13 09:52 | US_ITS ---
PROCEDURE: ABD LIMITED W/ ELASTOGRAPHY REASON FOR EXAM: FATTY LIVER COMPARISON: Prior study dated September 15, 2023. TECHNIQUE: Right upper quadrant abdominal ultrasound. Evelio ElastQ Imaging shear wave elastography for non-invasive assessment of liver tissue stiffness. Evelio EPIQ Elite. FINDINGS: LIVER: Size: Enlarged (hepatomegaly) Length: 23.4 cm Echotexture: Diffusely echogenic suggesting fatty infiltration Contour: Normal Lesions: None identified Elastography: EQI Med: 10.5 kPa EQI Med Edwardo: 1.85 m/s IQR/Med: 23.3 %* GALLBLADDER: No stones sludge wall thickening or tenderness. Findings suggestive of adenomyomatosis of the gallbladder wall. Gallbladder well measures upper limits of normal at 3 mm. COMMON BILE DUCT: Normal measuring 4 mm. PANCREAS: Normal Visualized portions of the right kidney are unremarkable. There are 2, tiny nonobstructive right intrarenal calculi. No right upper quadrant ascites. US/ABD Limited w/ Elastography IMPRESSION: MODERATE TO SEVERE HEPATIC FIBROSIS Hepatomegaly. Diffuse fatty infiltration of the liver. Findings suggestive of adenomyomatosis of the gallbladder wall. Reference Values: SRU <1.37 m/s (5.7kPa): No to mild fibrosis 1.37 m/s - 2.2 m/s: Moderate to severe fibrosis >2.2 m/s (15kPa): Significant fibrosis / cirrhosis METAVIR Score F2 or higher: 1.34 m/s (5.7kPa) F3 or higher: 1.55 m/s (7.3kPa) F4: 1.80 m/s (10kPa) * If the IQR/Med is >30%, the variance in the measurements is a large and the a ccuracy of the measurement may be in question. Reading Location: [facility]
== END | disposition home or self-care (01) ==
PROVIDERS: PCP Internal Medicine; Referring Provider Student in an Organized Health Care Education/Training Program; Visit Provider Student in an Organized Health Care Education/Training Program
DX: K76.0 Fatty (change of) liver, not elsewhere classified (principal)
CPT/HCPCS: 76705; 76981

== ENCOUNTER → 2025-05-31 | Outpatient (CLI) | payer MEDICARE, MEDICAID, SELFPAY ==
[2025-05-31 11:27] LABS: Hematocrit 41.8 % (40-54); Hemoglobin 13.7 g/dL (13.0-16.5); Immature Granulocytes Count 0.020 X10^3/uL (0.0-0.0); Mean Corp Hgb Conc 32.8 g/dL (32-36); Mean Corpuscular Volume 87.1 fL (80-94); Mean Platelet Vol. 12.4 fl (6.2-12.0); NRBC Flagged by Analyzer 0 % (0-5); Platelet Count 202 K/mm3 (150-450); RBC Distribution Width CV 13.4 % (11.6-14.6); RBC Distribution Width SD 43.0 fl (35.1-43.9); Red Blood Count 4.80 M/mm3 (4.6-6.2); White Blood Count 8.7 K/mm3 (4.4-11.0)
[2025-05-31 12:00] LABS: AST(SGOT) 18 U/L (<=37); Alanine Aminotransfer ALT/SGPT 14 U/L (<=46); Albumin, Serum 3.6 g/dL (3.5-5.0); Alkaline Phosphatase 95 U/L (40-129); Anion Gap 12 (5-15); BUN 9 mg/dL (4-19); BUN/Creat Ratio 11.5 RATIO (10-20); Calcium,Total 8.9 mg/dL (7.6-11.0); Carbon Dioxide 21.6 mmol/L (21.0-32.0); Chloride 103 mmol/L (98-108); Cholesterol 124 mg/dL (<=200); Globulin 3.3 g/dL (2.2-4.2); Glucose 152 mg/dL (70-99); Low Density Lipoprotein Calc. 72 mg/dL; PSA,Total - Annual Screen 0.70 ng/mL (0.02-4.00); Potassium 3.9 mmol/L (3.3-5.1); Triglycerides 98 mg/dL; Very Low Density Lipoprotein 20 mg/dL (5-40); cholesterol:hdl ratio screen 3.73
== END | disposition home or self-care (01) ==
LOC: LAB 10:33
PROVIDERS: PCP Internal Medicine; Referring Provider Internal Medicine; Visit Provider Internal Medicine
DX: Z13.220 Encounter for screening for lipoid disorders (principal); Z12.5 Encounter for screening for malignant neoplasm of prostate; E11.9 Type 2 diabetes mellitus without complications; K76.0 Fatty (change of) liver, not elsewhere classified; I10 Essential (primary) hypertension
CPT/HCPCS: 36415; 80053; 80061; 83036; 84153; 85025; G0103